=== PATIENT | male | born 1945 | race Caucasian/White ===

== ENCOUNTER 2018-04-16 12:49 | Emergency (ER) | payer MEDICARE, OTHER ==
[2018-04-16 13:09] VITALS: BP 136/63
[2018-04-16 13:24] LABS: CHLORIDE,CL 111 mmol/L (98-107); SODIUM,NA 145 mmol/L (136-145)
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
== END 2018-04-16 14:45 | disposition home or self-care (01) ==
LOC: LL.ED 12:49
DX: M10.9 Gout, unspecified (principal); Z79.899 Other long term (current) drug therapy; Z87.891 Personal history of nicotine dependence
CPT/HCPCS: 36415; 73630-RT; 80053; 84550; 85025; 85379; 86140; 99284

== ENCOUNTER 2018-07-29 15:58 | Emergency (ER) | payer MEDICARE, OTHER ==
[2018-07-29 16:09] VITALS: BP 123/58
[2018-07-29] MEDS ORDERED: Diphtheria,Pertussis(Acell),Tetanus Vaccine 0.5 ML SDV IM ONE (16:15)
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
[2018-07-29] MEDS ORDERED: Bacitracin/Neomycin/Polymyxin B Oint 0.9 GM U/D Packet TOP ONE (16:49)
== END 2018-07-29 17:45 | disposition home or self-care (01) ==
LOC: LL.ED 15:58
DX: S51.811A Laceration without foreign body of right forearm, initial encounter (principal); Z23 Encounter for immunization; W19.XXXA Unspecified fall, initial encounter; Y92.009 Unspecified place in unspecified non-institutional (private) residence as the place of occurrence of the external cause
CPT/HCPCS: 12002; 90471; 90715; 99283; J2001

== ENCOUNTER → 2019-02-13 | Outpatient (CLI) | payer MEDICARE, OTHER ==
[2019-02-13 16:19] LABS: CHLORIDE,CL 104 mmol/L (98-107); SODIUM,NA 139 mmol/L (136-145)
== END ==
LOC: LL.CLIN 15:07
PROVIDERS: ATTEND Nurse Practitioner
DX: R06.02 Shortness of breath (principal); J98.4 Other disorders of lung; J90 Pleural effusion, not elsewhere classified; J98.11 Atelectasis
CPT/HCPCS: 36415; 71046; 80048; 83605; 85025; 96372; 99213; J0696; J1040

== ENCOUNTER 2019-03-28 20:59 | Emergency (ER) | payer MEDICARE, OTHER ==
[2019-03-28 21:43] VITALS: BP 108/58; PULSE 86
[2019-03-28] MEDS ORDERED: Sodium Chloride 0.9% 10 ML Syringe FLUSH PRN (22:15)
[2019-03-28] MEDS ORDERED: Sodium Chloride 0.9% 1,000 ML IV SCH (22:15)
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
== END 2019-03-28 23:08 ==
LOC: LL.ED 20:59
DX: R55 Syncope and collapse (principal); J44.9 Chronic obstructive pulmonary disease, unspecified; K92.2 Gastrointestinal hemorrhage, unspecified; D64.89 Other specified anemias; Z87.891 Personal history of nicotine dependence; Z99.81 Dependence on supplemental oxygen
CPT/HCPCS: 36415; 71045; 80048; 85025; 96360; 99284; 99285-25; G0480; J7030

== ENCOUNTER 2019-07-24 13:51 | Emergency (ER) | payer MEDICARE, OTHER ==
--- NOTE | 2019-07-24 13:53 | EDM.PDOC ---
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 She will likely need a repeat EGD. Further blood transfusion, etc. depending on his clinical course and treatment of CHF as above. Qualifiers: Anemia type: other cause Other causes of anemia: other cause, not classified Qualified Code(s): D64.89 - Other specified anemias (3) Recurrent gastrointestinal hemorrhage SNOMED Code(s): 811306768 Code(s): K92.2 - GASTROINTESTINAL HEMORRHAGE, UNSPECIFIED Status: Acute Priority: High Annotation/Comment:: As above (4) D-dimer, elevated SNOMED Code(s): 942837131 Code(s): R79.89 - OTHER SPECIFIED ABNORMAL FINDINGS OF BLOOD CHEMISTRY Status: Acute Priority: High Onset Date: 07/24/19 Annotation/Comment:: CTA of the chest results as above. No anticoagulation therapy for now secondary to progressive anemia and history of recurrent upper GI bleeds as above. No clear evidence of DVT or PE. Consider venous Doppler studies of the lower extremities by accepting providers. (5) COPD (chronic obstructive pulmonary disease) SNOMED Code(s): 54175175 Code(s): J44.9 - CHRONIC OBSTRUCTIVE PULMONARY DISEASE, UNSPECIFIED Status : Chronic Priority: Medium Annotation/Comment:: Recent fever or bronchitic type symptoms. Note chronic O2 therapy required. Qualifiers: COPD type: emphysema Emphysema type: panlobular Qualified Code(s): J43.1 - Panlobular emphysema (6) Coronary artery disease SNOMED Code(s): 24314806 Code(s): I25.10 - ATHSCL HEART DISEASE OF [place] CORONARY ARTERY W/O ANG PCTRS Status: Chronic Priority: High Annotation/Comment:: No Chest pain or anginal type symptoms, however evidence of possible anterolateral cardiac ischemia by resting EKG. Further cardiac workup including possible rule out [place] orders, cardiology consultation, repeat echocardiogram, etc. depending on his clinical course. Last echocardiogram on 01/04/18 with results as above. Qualifiers: Coronary Disease-Associated Artery/Lesion type: [place] artery [place] vs. transplanted heart: [place] heart Associated angina: without angina Qualified Code(s): I25.10 - Atherosclerotic heart disease of [place] coronary artery without angina pectoris (7) First degree AV block SNOMED Code(s): 142398399 Code(s): I44.0 - ATRIOVENTRICULAR BLOCK, FIRST DEGREE Status: Acute Priority: Medium Onset Date: 07/24/19 Annotation/Comment:: Newly diagnosed. Observe for now. (8) Mixed anxiety depressive disorder SNOMED Code(s): 823312420 Code(s): F41.8 - OTHER SPECIFIED ANXIETY DISORDERS Status: Chronic Priority: Medium Annotation/Comment:: Stable by history (9) Osteoarthritis SNOMED Code(s): 041015336 Code(s): M19.90 - UNSPECIFIED OSTEOARTHRITIS, UNSPECIFIED SITE Status: Chronic Priority: Medium Annotation/Comment:: Stable by history with history of hyperuricemia but no recent gout attacks. Qualifiers: Osteoarthritis location: multiple joints Osteoarthritis type: primary Qualified Code(s): M89.49 - Other hypertrophic osteoarthropathy, multiple sites (10) Right bundle branch block (RBBB) SNOMED Code(s): 35825529 Code(s): I45.10 - UNSPECIFIED RIGHT BUNDLE-BRANCH BLOCK Status: Chronic Priority: Medium Annotation/Comment:: Nonsymptomatic - Problem List Review Problem List Initiated/Reviewed/Updated: Yes - My Orders Last 24 Hours: My Active Orders 07/24/19 14:12 Cardiac Monitoring [RC] . DIRECTED EKG Documentation Completion [RC] ASDIRECTED Oxygen Therapy, ED [RC] PRN Peripheral IV Care [RC] . DIRECTED Pulse Oximetry [RC] CONTINUOUS Up With Assistance [RC] PFP Vital Signs [RC] PFP Chest 1V Frontal [CR] Stat Sodium Chloride 0.9% [Saline Flush] 10 ml FLUSH ASDIRECTED PRN Obtain Past Medical Record [OM.PC] Urgent Peripheral IV Insertion Adult [OM.PC] Stat Resuscitation Status Stat 07/24/19 15:08 Chest PE [Ang Chest] [CT] Stat 07/24/19 Breakfast Nothing per Oral Now Diet [DIET] - Assessment/Plan Last 24 Hours: My Active Orders 07/24/19 14:12 Cardiac Monitoring [RC] . DIRECTED EKG Documentation Completion [RC] ASDIRECTED Oxygen Therapy, ED [RC] PRN Peripheral IV Care [RC] . DIRECTED Pulse Oximetry [RC] CONTINUOUS Up With Assistance [RC] PFP Vital Signs [RC] PFP Chest 1V Frontal [CR] Stat Sodium Chloride 0.9% [Saline Flush] 10 ml FLUSH ASDIRECTED PRN Obtain Past Medical Record [OM.PC] Urgent Peripheral IV Insertion Adult [OM.PC] Stat Resuscitation Status Stat 07/24/19 15:08 Chest PE [Ang Chest] [CT] Stat 07/24/19 Breakfast Nothing per Oral Now Diet [DIET] Assessment:: As above Plan: As above. Extensive precautions were given to the patient and his , who are in agreement with the treatment plan. Ambulance transfer to [place] with marketing production specialist accompaniment as above.
[2019-07-24] MEDS ORDERED: Famotidine 20 MG/2 ML SDV IVPUSH ONE (14:12)
[2019-07-24] MEDS: Sodium Chloride 0.9% 10 ML Syringe FLUSH PRN ×2 (14:53→17:28)
[2019-07-24 15:10] LABS: CHLORIDE,CL 107 mmol/L (98-107); SODIUM,NA 142 mmol/L (136-145)
[2019-07-24] MEDS ORDERED: Iopamidol 755 Mg/ML 100 ML Bottle IVPUSH STA (15:23)
[2019-07-24 15:29] LABS: PTT,PARTIAL THROMBOPLSTIN TIME 31.6 SEC (24.5-32.8)
[2019-07-24] MEDS ORDERED: Furosemide 40 MG/4 ML VIAL IVPUSH ONE (16:19)
[2019-07-24 18:54] VITALS: PULSE 80
[2019-07-24 18:55] VITALS: BP 148/73
== END 2019-07-24 18:10 ==
LOC: LL.ED 13:51
DX: I13.0 Hypertensive heart and chronic kidney disease with heart failure and stage 1 through stage 4 chronic kidney disease, or unspecified chronic kidney disease (principal); I50.9 Heart failure, unspecified; M10.9 Gout, unspecified; J44.9 Chronic obstructive pulmonary disease, unspecified; D64.9 Anemia, unspecified; I44.0 Atrioventricular block, first degree; M19.90 Unspecified osteoarthritis, unspecified site; F41.8 Other specified anxiety disorders; K92.2 Gastrointestinal hemorrhage, unspecified; I45.10 Unspecified right bundle-branch block; I25.10 Atherosclerotic heart disease of native coronary artery without angina pectoris; R79.1 Abnormal coagulation profile; E66.9 Obesity, unspecified; F41.9 Anxiety disorder, unspecified; F32.9 Major depressive disorder, single episode, unspecified; Z68.35 Body mass index [BMI] 35.0-35.9, adult; Z87.891 Personal history of nicotine dependence; Z79.899 Other long term (current) drug therapy; Z99.81 Dependence on supplemental oxygen; E11.42 Type 2 diabetes mellitus with diabetic polyneuropathy
CPT/HCPCS: 36415; 71045; 71275; 80053; 82550; 82553; 83605; 83735; 83880; 84443; 84484; 84550; 85025; 85379; 85610; 85730; 93005; 96374; 96375; 99285-25; J1940; J3490; Q9967

== ENCOUNTER 2020-09-03 15:49 | Observation (INO) | payer MEDICARE, OTHER ==
[2020-09-03] MEDS ORDERED: Sodium Chloride 0.9% 10 ML Syringe FLUSH PRN (16:05)
[2020-09-03] MEDS ORDERED: cefTRIAXone 1 GM Vial IVPUSH ONE (16:07)
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
[2020-09-03] MEDS: Sodium Chloride 0.9% 500 ML IV SCH ×2 (16:26→17:05)
[2020-09-03 16:35] LABS: PTT,PARTIAL THROMBOPLSTIN TIME 29.6 SEC (24.5-32.8)
[2020-09-03 16:44] LABS: CHLORIDE,CL 107 mmol/L (98-107); SODIUM,NA 144 mmol/L (136-145)
[2020-09-03] MEDS ORDERED: Ondansetron 4 MG Tab.DIS PO PRN (17:35)
[2020-09-03] MEDS ORDERED: Acetaminophen 325 MG Tab PO PRN (17:35)
[2020-09-03] MEDS ORDERED: Ondansetron 4 MG/2 ML SDV IVPUSH PRN (17:35)
[2020-09-03] MEDS ORDERED: Albuterol 6.7 GM Inhaler INH PRN (17:40)
[2020-09-03] MEDS ORDERED: Sodium Chloride 0.9% 1,000 ML IV SCH (17:45)
[2020-09-03] MEDS: Magnesium Oxide 400 MG Tab PO SCH (19:03)
[2020-09-03] MEDS: Potassium Chloride 10 MEQ Tab.ER PO SCH (19:03)
[2020-09-03] MEDS: Gabapentin 300 MG Cap PO SCH (19:03)
[2020-09-03] MEDS: Budesonide 0.5 MG/2 ML Neb Susp INH SCH (19:03)
[2020-09-03] MEDS: Albuterol/Ipratropium 3.0-0.5 MG/3 ML Neb Soln INH SCH (19:03)
[2020-09-03] MEDS ORDERED: ARIPiprazole 10 MG Tab PO SCH (20:00)
[2020-09-03] MEDS ORDERED: Beta-Carotene (Vitamin A) w/Vitamin C & E plus Minerals Tab PO SCH (20:00)
[2020-09-03] MEDS ORDERED: Tamsulosin 0.4 MG Cap.ER PO SCH (20:00)
[2020-09-04] MEDS: Gabapentin 300 MG Cap PO SCH (07:29)
[2020-09-04] MEDS: Budesonide 0.5 MG/2 ML Neb Susp INH SCH (07:29)
[2020-09-04] MEDS: Albuterol/Ipratropium 3.0-0.5 MG/3 ML Neb Soln INH SCH ×3 (07:43→17:06)
[2020-09-04] MEDS ORDERED: Ferrous Sulfate 325 MG Tab PO SCH (08:00)
[2020-09-04] MEDS ORDERED: Sertraline 50 MG Tab PO SCH (08:00)
[2020-09-04] MEDS ORDERED: Pantoprazole 40 MG Tab.CR PO SCH (08:00)
[2020-09-04 08:56] LABS: CHLORIDE,CL 110 mmol/L (98-107); SODIUM,NA 144 mmol/L (136-145)
[2020-09-04] MEDS ORDERED: IPRATROPIUM NASBOTH SCH (10:30)
[2020-09-04] MEDS: Potassium Chloride 10 MEQ Tab.ER PO SCH (11:15)
[2020-09-04] MEDS: Magnesium Oxide 400 MG Tab PO SCH (11:15)
[2020-09-04] MEDS ORDERED: Acetaminophen 325 MG Tab PO PRN (12:09)
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
[2020-09-04 17:06] VITALS: BP 160/73; PULSE 85
[2020-09-04] MEDS ORDERED: Multivitamin Tab PO SCH (18:00)
--- NOTE | 2020-09-04 20:06 | PCM.DCSUM1 ---
Discharge Summary - Hospital Course Free Text/Narrative:: Nj is a 75 y/o male who had presented to the ER via POV by his after he became more lethargic. He had been acting fine and then just seemed to get weaker as the day went on. He did arrive to the ER with low blood pressures and felt warm. He was given IV fluids and his bloods pressures improved. Sepsis was suspected and Sepsis protocol instituted. Labs were drawn and he was given Ceftriaxone 1gm IVP. His labs were reviewed. His lactic acid was normal. BPs improved with IV fluids. Noted that his BUN and seat covers trimmer were elevated. It was decided that he would be admitted to Observation for IV fluids and serial labs. Diagnosis: Stroke: No - Discharge Data Discharge Date: 09/04/20 Discharge Disposition: Home, Self-Care 01 Condition: Good - Referral to Home Health Primary Care Physician: Shaista Salcedo NP - Patient Summary/Data Consults: Consultations 09/03/20 17:35 OT Evaluation and Treatment [CONS] Routine PT Evaluation and Treatment [CONS] Routine Hospital Course: The patient received normal saline infusions through the night. His labs were repeated and improved. He was evaluated by PT and no deficits were noted. He felt better and was more alert and able to talk to staff. The patient felt ready to go home. He was not febrile and his blood pressures had remained stable after IV rehydration. The patient was sent home with his . - Patient Instructions Diet: Heart Healthy Diet Activity: As Tolerated Showering/Bathing: May Shower Other/Special Instructions: -Stay hydrated, especially in this hot weather. - Make sure you have your air conditioning on or a fan going. -Resume your home medications as prescribed by your PCP. -Follow up with your PCP for further concerns - Discharge Plan *PRESCRIPTION DRUG MONITORING PROGRAM REVIEWED*: Not Applicable *COPY OF PRESCRIPTION DRUG MONITORING REPORT IN PATIENT JOHN: Not Applicable Home Medications: Home Meds Albuterol [Ventolin HFA] 1 puff INH Q4H PRN 02/26/15 [History] Furosemide 20 mg PO Q2D 02/26/15 [History] Lutein/Minerals/Vit A,C & E [I-Nurys] 1 each PO BEDTIME 02/26/15 [History] Multivitamin [Multi-Vitamin Daily] 1 tab PO QPM 02/26/15 [History] Pantoprazole [ProTONIX] 40 mg PO DAILY 02/26/15 [History] Potassium Chloride [Klor-Con 10] 10 meq PO BIDMEALS@1200,1800 02/26/15 [History] Sertraline [Zoloft] 200 mg PO DAILY 02/26/15 [History] ARIPiprazole [Abilify] 5 mg PO BEDTIME 04/16/18 [History] Tamsulosin [Tamsulosin 24 Hr] 0.4 mg PO BEDTIME 04/16/18 [History] Albuterol/Ipratropium [DuoNeb 3.0-0.5 MG/3 ML] 3 ml INH QID 07/29/18 [History] Magnesium Oxide 400 mg PO BID@1200,1800 07/29/18 [History] Acetylcysteine [Nac] 1 cap PO BID 03/28/19 [History] Ferrous Sulfate 1 tab PO Q2D 03/28/19 [History] Gabapentin [Neurontin] 300 mg PO BID 03/28/19 [History] Acetaminophen [Tylenol] 650 mg PO Q6H PRN 07/24/19 [History] Ipratropium [Atrovent 0.03% Nasal [place]] 2 spray NASBOTH BID 07/24/19 [History] Ascorbate Calcium [Vitamin C] 500 mg PO DAILY 09/03/20 [History] Budesonide [Pulmicort] 1 vial INH BID 09/03/20 [History] Oxygen Therapy Mode: Nasal Cannula Oxygen Flow Rate (L/min): 4 Patient Handouts: Hypotension, [id number] Forms: ED Department Discharge Referrals: Shaista Salcedo NP [Primary Care Provider] - - Discharge Summary/Plan Comment DC Time >30 min.: Yes - General Info Date of Service: 09/04/20 Admission Dx/Problem (Free Text: 1)Renal Insufficiency 2)Lethargic 3)Hypotension due to Hypovolemia 4)R/O Sepsis - Review of Systems General: Reports: No Symptoms HEENT: Reports: No Symptoms Pulmonary: Reports: No Symptoms Cardiovascular: Reports: No Symptoms Gastrointestinal: Reports: No Symptoms Genitourinary: Reports: No Symptoms Musculoskeletal: Reports: No Symptoms Skin: Reports: No Symptoms Neurological: Reports: No Symptoms Psychiatric: Reports: No Symptoms - Patient Data Vitals - Most Recent: Last Vital Signs Temp 37.0 C 09/04/20 12:00 Pulse 85 09/04/20 16:00 Resp 16 09/04/20 12:00 BP 160/73 H 09/04/20 16:00 Pulse Ox 95 09/04/20 12:00 Weight - Most Recent: 130.181 kg I&O - Last 24 hours: Intake & Output 09/04/20 09/04/20 09/04/20 06:59 14:59 22:59 Intake Total 800 Output Total 30 Balance 50@ Lab Results - Last 24 hrs: Laboratory Results - last 24 hr 09/03/20 09/03/20 09/04/20 Range/Units 19:41 19:41 07:12 WBC 5.3 (4.0-10.2) K/uL RBC 3.22 L (4.33-5.41) M/uL Hgb 9.3 L D (13.1-16.8) g/dL Hct 28.9 L (39.0-49.0) % MCV 89.8 (84.0-98.0) fL MCH 28.9 (28.2-33.3) pg MCHC 32.2 (31.7-36.0) g/dL RDW 16.0 H (11.2-14.1) % Plt Count 74 L (150-350) K/uL Neut % (Auto) 80.7 H (45.0-80.0) % Lymph % (Auto) 8.7 L (10.0-50.0) % [place] % (Auto) 8.7 (2.0-14.0) % Eos % (Auto) 1.7 (0.0-5.0) % Baso % (Auto) 0.2 (0.0-2.0) % Neut # (Auto) 4.28 (1.40-7.00) K/uL Lymph # (Auto) 0.46 L (0.50-3.50) K/uL [place] # (Auto) 0.46 (0.00-1.00) K/uL Eos # (Auto) 0.09 (0.00-0.50) K/uL Baso # (Auto) 0.01 (0.00-0.20) K/uL Sodium (136-145) mmol/L Potassium (3.5-5.1) mmol/L Chloride (98-107) mmol/L Carbon Dioxide (21.0-32.0) mmol/L BUN (7-18) mg/dL Creatinine (0.51-1.17) mg/dL Est Cr Clr Drug Dosing mL/min Estimated GFR (MDRD) mL/min Glucose (70-99) mg/dL Lactic Acid 0.9 (0.4-2.0) mmol/L Calcium (8.5-10.1) mg/dL Troponin I 0.000 (0.000-0.056) ng/mL C-Reactive Protein (<=0.9) mg/dL 09/04/20 09/04/20 09/04/20 Range/Units 07:12 07:12 07:12 WBC (4.0-10.2) K/uL RBC (4.33-5.41) M/uL Hgb (13.1-16.8) g/dL Hct (39.0-49.0) % MCV (84.0-98.0) fL MCH (28.2-33.3) pg MCHC (31.7-36.0) g/dL RDW (11.2-14.1) % Plt Count (150-350) K/uL Neut % (Auto) (45.0-80.0) % Lymph % (Auto) (10.0-50.0) % [place] % (Auto) (2.0-14.0) % Eos % (Auto) (0.0-5.0) % Baso % (Auto) (0.0-2.0) % Neut # (Auto) (1.40-7.00) K/uL Lymph # (Auto) (0.50-3.50) K/uL [place] # (Auto) (0.00-1.00) K/uL Eos # (Auto) (0.00-0.50) K/uL Baso # (Auto) (0.00-0.20) K/uL Sodium 144 (136-145) mmol/L Potassium 4.2 (3.5-5.1) mmol/L Chloride 110 H (98-107) mmol/L Carbon Dioxide 27.7 (21.0-32.0) mmol/L BUN 35 H (7-18) mg/dL Creatinine 1.17 (0.51-1.17) mg/dL Est Cr Clr Drug Dosing 54.59 mL/min Estimated GFR (MDRD) > 60 mL/min Glucose 103 H (70-99) mg/dL Lactic Acid 0.8 (0.4-2.0) mmol/L Calcium 8.1 L (8.5-10.1) mg/dL Troponin I 0.000 (0.000-0.056) ng/mL C-Reactive Protein 11.1 H (<=0.9) mg/dL ANKITA Results - Last 24 hrs: Microbiology 09/03/20 16:12 Aerobic Blood Culture - Preliminary Blood - Venous - Lab Draw NO GROWTH AFTER 1 DAY Anaerobic Blood Culture - Preliminary NO GROWTH AFTER 1 DAY 09/03/20 16:12 Aerobic Blood Culture - Preliminary Blood - Venous NO GROWTH AFTER 1 DAY Anaerobic Blood Culture - Preliminary NO GROWTH AFTER 1 DAY Med Orders - Current: Current Medications Discontinued Medications Acetaminophen (Acetaminophen 325 Mg Tab) 650 mg PO Q4H PRN PRN Reason: Pain (Mild 1-3)/fever Albuterol (Albuterol 6.7 Gm Inhaler) 0 gm INH Q4H PRN PRN Reason: Shortness of Breath Albuterol/Ipratropium (Albuterol/Ipratropium 3.0-0.5 Mg/3 Ml Neb Soln) 3 ml INH QIDRT [facility] Last Admin: 09/04/20 17:06 Dose: Not Given Documented by: Aripiprazole (Aripiprazole 10 Mg Tab) 5 mg PO BEDTIME [facility] Last Admin: 09/03/20 19:02 Dose: 5 mg Documented by: Ascorbic Acid (Ascorbic Acid 500 Mg Tab) 500 mg PO DAILY [facility] Budesonide (Budesonide 0.5 Mg/2 Ml Neb Susp) 0.5 mg INH BIDRT [facility] Last Admin: 09/04/20 07:29 Dose: 0.5 mg Documented by: Ceftriaxone Sodium (Ceftriaxone 1 Gm Vial) 1 gm IVPUSH STAT ONE Stop: 09/03/20 16:08 Last Admin: 09/03/20 16:31 Dose: 1 gm Documented by: Ferrous Sulfate (Ferrous Sulfate 325 Mg Tab) 325 mg PO Q2D [facility] Last Admin: 09/04/20 07:43 Dose: 325 mg Documented by: Furosemide (Furosemide 20 Mg Tab) 20 mg PO Q2D [facility] Gabapentin (Gabapentin 300 Mg Cap) 300 mg PO BID [facility] Last Admin: 09/04/20 07:29 Dose: 300 mg Documented by: Sodium Chloride (Normal Saline) 500 mls @ 999 mls/hr IV .BOLUS [facility] Last Admin: 09/03/20 17:05 Dose: 999 mls/hr Documented by: Sodium Chloride (Normal Saline) 1,000 mls @ 100 mls/hr IV ASDIRECTED [facility] Last Admin: 09/03/20 19:04 Dose: 100 mls/hr Documented by: Magnesium Oxide (Magnesium Oxide 400 Mg Tab) 400 mg PO BID@1200,1800 [facility] Last Admin: 09/04/20 11:15 Dose: 400 mg Documented by: Multivitamins/Minerals (Beta-Carotene (Vitamin A) W/Vitamin C & E Plus Minerals Tab) 1 tab PO BEDTIME [facility] Last Admin: 09/03/20 19:03 Dose: 1 tab Documented by: Multivitamins/Minerals/Vitamin C (Multivitamin Tab) 1 tab PO QPM [facility] Ipratropium [ Atrovent 0.03% Nasal [place]] 2 spray NASBOTH BID [facility] Last Admin: 09/04/20 10:37 Dose: 2 spray Documented by: Non-Formulary Medication (Acetylcysteine [Nac]) 1 cap PO BID [facility] Ondansetron HCl (Ondansetron 4 Mg Tab.Dis) 4 mg PO Q6H PRN PRN Reason: Nausea/Vomiting Ondansetron HCl (Ondansetron 4 Mg/2 Ml Sdv) 4 mg IVPUSH Q6H PRN PRN Reason: Nausea/Vomiting Pantoprazole Sodium (Pantoprazole 40 Mg Tab.Cr) 40 mg PO DAILY [facility] Last Admin: 09/04/20 07:30 Dose: 40 mg Documented by: Potassium Chloride (Potassium Chloride 10 Meq Tab.Er) 10 meq PO BIDMEALS@1200,1800 [facility] Last Admin: 09/04/20 11:15 Dose: 10 meq Documented by: Sertraline HCl (Sertraline 50 Mg Tab) 200 mg PO DAILY [facility] Last Admin: 09/04/20 07:30 Dose: 200 mg Documented by: Sodium Chloride (Sodium Chloride 0.9% 10 Ml Syringe) 10 ml FLUSH ASDIRECTED PRN PRN Reason: Keep Vein Open Tamsulosin HCl (Tamsulosin 0.4 Mg Cap.Er) 0.4 mg PO BEDTIME [facility] Last Admin: 09/03/20 19:03 Dose: 0.4 mg Documented by: - Exam General: Reports: Alert, Oriented HEENT: Reports: Pupils Equal, Pupils Reactive Neck: Reports: Supple Lungs: Reports: Normal Respiratory Effort, Decreased Breath Sounds Cardiovascular: Reports: Regular Rate, Regular Rhythm GI/Abdominal Exam: Normal Bowel Sounds, Soft (Male) Exam: Deferred Rectal (Males) Exam: Deferred Back Exam: Reports: Normal Inspection Extremities: Normal Inspection, Normal Range of Motion, No Pedal Edema, Normal Capillary Refill Skin: Reports: Warm, Dry, Intact Neurological: Reports: No New Focal Deficit Psy/Mental Status: Reports: Alert, Normal Affect, Normal Mood
[2020-09-05] MEDS ORDERED: Ascorbic Acid 500 MG Tab PO SCH (08:00)
[2020-09-05] MEDS ORDERED: Furosemide 20 MG Tab PO SCH (08:00)
== END 2020-09-04 17:32 | disposition home or self-care (01) ==
LOC: LL.ED 15:49 → LL.MS 17:16
PROVIDERS: ADMIT Nurse Practitioner Family; ATTEND Nurse Practitioner Family
DX: R53.83 Other fatigue (principal); E11.22 Type 2 diabetes mellitus with diabetic chronic kidney disease; N18.9 Chronic kidney disease, unspecified; I95.9 Hypotension, unspecified; Z87.891 Personal history of nicotine dependence; E11.40 Type 2 diabetes mellitus with diabetic neuropathy, unspecified; J44.9 Chronic obstructive pulmonary disease, unspecified; Z99.81 Dependence on supplemental oxygen; Z79.899 Other long term (current) drug therapy
CPT/HCPCS: 36415; 51702; 71045; 80048; 80053; 81003; 83605; 83735; 83880; 84484; 85025; 85610; 85730; 86140; 87040; 87186; 93005; 94640; 96374; 97161-GP; 97530-GP; 99285-25; A9270-GY; G0378; J0696; J7030; J7040; J7620-GY

== ENCOUNTER 2020-09-05 19:00 | Inpatient (IN) | payer MEDICARE, OTHER ==
[2020-09-05] MEDS ORDERED: Albuterol/Ipratropium 3.0-0.5 MG/3 ML Neb Soln NEB PRN (19:40)
[2020-09-05] MEDS ORDERED: Acetaminophen 325 MG Tab PO PRN (19:40)
[2020-09-05] MEDS ORDERED: Temazepam 15 MG Cap PO PRN (19:40)
[2020-09-05] MEDS ORDERED: Albuterol 0.083% 2.5 MG/3 ML Neb Soln NEB PRN (19:40)
[2020-09-05 20:34] LABS: CHLORIDE,CL 109 mmol/L (98-107); SODIUM,NA 143 mmol/L (136-145)
--- NOTE | 2020-09-05 21:15 | PCM.HP.2 ---
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 Routine Lab 09/06/20 05:11 Ordered ARIPiprazole [Abilify] Med 09/06/20 20:00 Ordered 5 mg PO BEDTIME Acetaminophen [TylenoL] Med 09/05/20 19:40 Active 650 mg PO Q4H PRN Acetylcysteine [Nac] Med 09/06/20 08:00 Ordered 1 cap PO BID Albuterol [Proventil Neb Soln] Med 09/05/20 19:40 Active 2.5 mg NEB Q2H PRN Albuterol/Ipratropium [DuoNeb 3.0-0.5 MG/3 ML] Med 09/05/20 19:40 Active 3 ml NEB Q4HRRT PRN Albuterol/Ipratropium [DuoNeb 3.0-0.5 MG/3 ML] Med 09/06/20 02:00 Ordered 3 ml NEB Q6HRRT Ascorbate Calcium [Vitamin C] Med 09/06/20 08:00 Ordered 500 mg PO DAILY Budesonide [Pulmicort] Med 09/05/20 20:00 Active 0.5 mg NEB BIDRT Dextromethorphan/guaiFENesin [Mucinex DM ER 600-30 MG] Med 09/06/20 08:00 Active 1 tab PO BID Ferrous Sulfate Med 09/05/20 21:15 Ordered 325 mg PO Q2D Furosemide [Lasix] Med 09/05/20 21:15 Ordered 40 mg IVPUSH Q8H Gabapentin [Neurontin] Med 09/06/20 08:00 Ordered 300 mg PO BID Ipratropium [Atrovent 0.03% Nasal Leonidas] Med 09/06/20 08:00 Ordered 2 spray NASBOTH BID Magnesium Oxide Med 09/06/20 12:00 Ordered 400 mg PO BID@1200,1800 Pantoprazole [ProTONIX] Med 09/06/20 08:00 Ordered 40 mg PO DAILY Potassium Chloride [Klor-Con M20] Med 09/06/20 08:00 Ordered 20 meq PO TID Sertraline [Zoloft] Med 09/06/20 08:00 Ordered 200 mg PO DAILY Sodium Chloride 0.9% [Saline Flush] Med 09/05/20 19:50 Active 10 ml FLUSH ASDIRECTED PRN Sodium Chloride 0.9% [Saline Flush] Med 09/05/20 19:45 Active 10 ml FLUSH Q12H Tamsulosin [Flomax] Med 09/06/20 20:00 Ordered 0.4 mg PO BEDTIME Temazepam [Restoril] Med 09/05/20 19:40 Active 15 mg PO BEDTIME PRN Vancomycin 1 gm Med 09/05/20 21:00 Active Dextrose 5% in Water 250 ml IV Q24H [id number] [Rocephin] 1 gm Med 09/05/20 20:00 Active Sodium Chloride 0.9% [Normal Saline] 100 ml IV Q12H DVT/VTE Prophylaxis Reflex [OM.PC] Routine Oth 09/05/20 19:41 Ordered GM Immunization Reflex [OM.PC] Click to Edit Oth 09/05/20 19:41 Ordered Saline Lock Insert [OM.PC] Stat Oth 09/05/20 19:50 Ordered Severe Sepsis Onset Time [OM.PC] Stat Oth 09/05/20 19:50 Ordered EKG 12 Lead [EK] Routine Ther 09/06/20 05:11 Ordered Medication Orders Acetaminophen (Acetaminophen 325 Mg Tab) 650 mg PO Q4H PRN PRN Reason: Pain/Fever Albuterol (Albuterol 0.083% 2.5 Mg/3 Ml Neb Soln) 2.5 mg NEB Q2H PRN PRN Reason: Dyspnea Albuterol/Ipratropium (Albuterol/Ipratropium 3.0-0.5 Mg/3 Ml Neb Soln) 3 ml NEB Q4HRRT PRN PRN Reason: Dyspnea Albuterol/Ipratropium (Albuterol/Ipratropium 3.0-0.5 Mg/3 Ml Neb Soln) 3 ml NEB Q6HRRT DARREL Budesonide (Budesonide 0.5 Mg/2 Ml Neb Susp) 0.5 mg NEB BIDRT DARREL Ferrous Sulfate (Ferrous Sulfate 325 Mg Tab) 325 mg PO Q2D DARREL Furosemide (Furosemide 40 Mg/4 Ml Vial) 40 mg IVPUSH Q8H DARREL Gabapentin (Gabapentin 300 Mg Cap) 300 mg PO BID DARREL Guaifenesin/Dextromethorphan (Dextromethorphan/Guaifenesin 600-30 Mg Tab.Er) 1 tab PO BID DARREL Ceftriaxone Sodium 1 gm/ (Sodium Chloride) 100 mls @ 200 mls/hr IV Q12H DARREL Vancomycin HCl 1 gm/ Dextrose/ (Water) 250 mls @ 165 mls/hr IV Q24H DARREL Magnesium Oxide (Magnesium Oxide 400 Mg Tab) 400 mg PO BID@1200,1800 DARREL Non-Formulary Medication (Acetylcysteine [Nac]) 1 cap PO BID DARREL Non-Formulary Medication (Aripiprazole [Abilify]) 5 mg PO BEDTIME DARREL Non-Formulary Medication (Ascorbate Calcium [Vitamin C]) 500 mg PO DAILY DARREL Non-Formulary Medication (Ipratropium [Atrovent 0.03% Nasal Leonidas]) 2 spray NASBOTH BID DARREL Non-Formulary Medication (Sertraline [Zoloft]) 200 mg PO DAILY DARREL Pantoprazole Sodium (Pantoprazole 40 Mg Tab.Cr) 40 mg PO DAILY DARREL Potassium Chloride (Potassium Chloride 20 Meq Tab.Er) 20 meq PO TID DARREL Sodium Chloride (Sodium Chloride 0.9% 10 Ml Syringe) 10 ml FLUSH Q12H DARREL Sodium Chloride (Sodium Chloride 0.9% 10 Ml Syringe) 10 ml FLUSH ASDIRECTED PRN PRN Reason: Keep Vein Open Tamsulosin HCl (Tamsulosin 0.4 Mg Cap.Er) 0.4 mg PO BEDTIME DARREL Temazepam (Temazepam 15 Mg Cap) 15 mg PO BEDTIME PRN PRN Reason: Insomnia Assessment/Plan Comment:: As above. Extensive precautions were given to the patient and his , who are in agreement with the treatment plan. The patient will require about 3-4 days of inpatient/acute care secondary to multiple health problems as above. - Mortality Measure Prognosis:: Poor
[2020-09-05] MEDS: cefTRIAXone 1 GM in Sodium Chloride 0.9% 100 ML IV SCH (21:32)
[2020-09-05] MEDS: Sodium Chloride 0.9% 10 ML Syringe FLUSH SCH (21:33)
[2020-09-05] MEDS: Budesonide 0.5 MG/2 ML Neb Susp NEB SCH (21:38)
[2020-09-05] MEDS: Furosemide 40 MG/4 ML VIAL IVPUSH SCH (22:33)
[2020-09-06] MEDS: Albuterol/Ipratropium 3.0-0.5 MG/3 ML Neb Soln NEB SCH ×4 (01:39→19:39)
[2020-09-06] MEDS: Furosemide 40 MG/4 ML VIAL IVPUSH SCH ×3 (05:17→21:23)
[2020-09-06] MEDS: Sodium Chloride 0.9% 10 ML Syringe FLUSH PRN ×2 (05:19→12:24)
[2020-09-06] MEDS: cefTRIAXone 1 GM in Sodium Chloride 0.9% 100 ML IV SCH ×2 (07:52→19:40)
[2020-09-06] MEDS: Sodium Chloride 0.9% 10 ML Syringe FLUSH SCH ×3 (07:53→21:23)
[2020-09-06] MEDS: Budesonide 0.5 MG/2 ML Neb Susp NEB SCH ×2 (07:53→19:39)
[2020-09-06] MEDS: Ascorbic Acid 500 MG Tab PO SCH (07:53)
[2020-09-06] MEDS: Potassium Chloride 20 MEQ Tab.ER PO SCH ×3 (07:54→17:36)
[2020-09-06] MEDS: Dextromethorphan/guaiFENesin 600-30 MG Tab.ER PO SCH ×2 (07:54→17:35)
[2020-09-06] MEDS: Pantoprazole 40 MG Tab.CR PO SCH (07:54)
[2020-09-06] MEDS: Sertraline 50 MG Tab PO SCH (07:54)
[2020-09-06] MEDS: Gabapentin 300 MG Cap PO SCH ×2 (07:54→17:36)
[2020-09-06] MEDS: [UNRECOGNIZED DRUG - OTHER] NASBOTH SCH ×2 (07:55→17:35)
[2020-09-06] MEDS: IPRATROPIUM NASBOTH SCH ×2 (07:55→17:35)
[2020-09-06] MEDS ORDERED: Budesonide 0.5 MG/2 ML Neb Susp NEB SCH (08:00)
[2020-09-06] MEDS: Ferrous Sulfate 325 MG Tab PO SCH (08:08)
[2020-09-06 09:25] LABS: CHLORIDE,CL 107 mmol/L (98-107); SODIUM,NA 144 mmol/L (136-145)
--- NOTE | 2020-09-06 11:35 | PCM.PN ---
- General Info Date of Service: 09/06/20 Admission Dx/Problem (Free Text): Admission Diagnosis/Problem Admission Diagnosis/Problem Sepsis Functional Status: Reports: Pain Controlled, Tolerating Diet, Ambulating (With assist and cane use), Urinating, Incentive Spirometry. Denies: New Symptoms Pain Score: 0 - Review of Systems General: Reports: Weakness (Stable chronic). Denies: Fever, Fatigue, Malaise, Chills, Night Sweats, Appetite (Good) HEENT: Reports: Glasses. Denies: Dysphasia, Ear Pain, Eye Pain, Headaches, Post Nasal Drip, Sinus Congestion, Sore Throat, Visual Changes Pulmonary: Reports: Shortness of Breath, Cough. Denies: Pleuritic Chest Pain, Sputum, Hemoptysis, Wheezing Cardiovascular: Reports: Dyspnea on Exertion, Orthopnea, Edema (Improved). Denies: Chest Pain, Palpitations, Lightheadedness Gastrointestinal: Reports: No Symptoms, Other (Normal bowel movement this morning). Denies: Abdominal Pain, Constipation, Decreased Appetite, Difficulty Swallowing, Hematochezia, Melena, Nausea, Vomiting Genitourinary: Reports: Incontinence, Other (Ruiz catheter placed yesterday). Denies: Dysuria, Frequency, Burning, Hematuria, Retention, Flank Pain Musculoskeletal: Reports: No Symptoms. Denies: Neck Pain, Shoulder Pain, Arm Pain, Back Pain, Leg Pain Skin: Denies: Diaphoresis, Bruising (Stable) Neurological: Reports: Difficulty Walking (Stable), Weakness (Stable). Denies: Confusion, Dizziness, Headache Psychiatric: Reports: No Symptoms. Denies: Confusion, Depression, Anxiety, Agitation, Cravings, Hallucinations - Patient Data Vitals - Most Recent: Last Vital Signs Temp 36.7 C 09/06/20 08:00 Pulse 80 09/06/20 08:00 Resp 26 H 09/06/20 08:00 BP 156/88 H 09/06/20 08:00 Pulse Ox 96 09/06/20 08:00 Vital Signs - 24 hr 09/05/20 09/05/20 09/06/20 19:41 23:41 03:59 Temperature [ 36.6 C 36.5 C 36.8 C Oral] Pulse, 88 72 84 Peripheral [ Left Pulse Oximetry] Respiratory 16 24 H 20 Rate Blood Pressure 123/67 124/68 144/80 H [Right Lower Arm] O2 Sat by Pulse 93 L 95 92 L Oximetry 09/06/20 08:00 Temperature [ 36.7 C Oral] Pulse, 80 Peripheral [ Left Pulse Oximetry] Respiratory 26 H Rate Blood Pressure 156/88 H [Right Lower Arm] O2 Sat by Pulse 96 Oximetry Weight - Most Recent: 128.911 kg I&O - Last 24 Hours: Intake & Output 09/05/20 09/06/20 09/06/20 22:59 06:59 14:59 Intake Total 460 Output Total 95 1100 Balance -94* -640 Imaging Impressions - Last 24 Hours: monitoring coordinator shows irregular sinus rhythm in the 70s with occasional PACs but no other significant arrhythmia Lab Results Last 24 Hours: Laboratory Results - last 24 hr 09/05/20 09/05/20 09/05/20 Range/Units 19:50 19:50 19:50 WBC 4.5 (4.0-10.2) K/uL RBC 3.33 L (4.33-5.41) M/uL Hgb 9.6 L (13.1-16.8) g/dL Hct 29.6 L (39.0-49.0) % MCV 88.9 (84.0-98.0) fL MCH 28.8 (28.2-33.3) pg MCHC 32.4 (31.7-36.0) g/dL RDW 15.6 H (11.2-14.1) % Plt Count 83 L (150-350) K/uL Neut % (Auto) 82.6 H (45.0-80.0) % Lymph % (Auto) 8.2 L (10.0-50.0) % [place] % (Auto) 6.8 (2.0-14.0) % Eos % (Auto) 2.2 (0.0-5.0) % Baso % (Auto) 0.2 (0.0-2.0) % Neut # (Auto) 3.74 (1.40-7.00) K/uL Lymph # (Auto) 0.37 L (0.50-3.50) K/uL [place] # (Auto) 0.31 (0.00-1.00) K/uL Eos # (Auto) 0.10 (0.00-0.50) K/uL Baso # (Auto) 0.01 (0.00-0.20) K/uL INR Sodium 143 (136-145) mmol/L Potassium 3.9 (3.5-5.1) mmol/L Chloride 109 H (98-107) mmol/L Carbon Dioxide 26.9 (21.0-32.0) mmol/L BUN 25 H (7-18) mg/dL Creatinine 1.03 (0.51-1.17) mg/dL Est Cr Clr Drug Dosing TNP Estimated GFR (MDRD) > 60 mL/min Glucose 97 (70-99) mg/dL Lactic Acid 0.8 (0.4-2.0) mmol/L Calcium 8.4 L (8.5-10.1) mg/dL Iron (50-175) ug/dL TIBC (250-450) ug/dL % Saturation Ferritin (8-388) ng/mL Total Bilirubin (0.2-1.0) mg/dL AST (15-37) U/L ALT (12-78) U/L Alkaline Phosphatase (46-116) IU/L Troponin I (0.000-0.056) ng/mL NT-Pro-B Natriuret Pep (0-125) pg/mL Total Protein (6.4-8.2) g/dL Albumin (3.4-5.0) g/dL Vitamin B12 (193-986) pg/mL Specimen Type Urine Color Urine Appearance Urine pH (5.0-9.0) Ur Specific [place] (1.005-1.030) Urine Protein (NEGATIVE) mg/dL Urine Glucose (UA) (NEGATIVE) mg/dL Urine Ketones (NEGATIVE) mg/dL Urine Occult Blood (NEGATIVE) Urine Nitrite (NEGATIVE) Urine Bilirubin (NEGATIVE) Urine Urobilinogen (0.2-1.0) E.U./dL Ur Leukocyte Esterase (NEGATIVE) Urine RBC /HPF Urine WBC /HPF Ur Epithelial Cells /LPF Urine Bacteria (NONE TO FEW) /HPF Ethyl Alcohol 0.000 (0.000-0.080) g/dL SARS-CoV-2 RNA (CARMINE) (NEGATIVE) 09/05/20 09/05/20 09/05/20 Range/Units 19:50 21:10 23:55 WBC (4.0-10.2) K/uL RBC (4.33-5.41) M/uL Hgb (13.1-16.8) g/dL Hct (39.0-49.0) % MCV (84.0-98.0) fL MCH (28.2-33.3) pg MCHC (31.7-36.0) g/dL RDW (11.2-14.1) % Plt Count (150-350) K/uL Neut % (Auto) (45.0-80.0) % Lymph % (Auto) (10.0-50.0) % [place] % (Auto) (2.0-14.0) % Eos % (Auto) (0.0-5.0) % Baso % (Auto) (0.0-2.0) % Neut # (Auto) (1.40-7.00) K/uL Lymph # (Auto) (0.50-3.50) K/uL [place] # (Auto) (0.00-1.00) K/uL Eos # (Auto) (0.00-0.50) K/uL Baso # (Auto) (0.00-0.20) K/uL INR Sodium (136-145) mmol/L Potassium (3.5-5.1) mmol/L Chloride (98-107) mmol/L Carbon Dioxide (21.0-32.0) mmol/L BUN (7-18) mg/dL Creatinine (0.51-1.17) mg/dL Est Cr Clr Drug Dosing Estimated GFR (MDRD) mL/min Glucose (70-99) mg/dL Lactic Acid (0.4-2.0) mmol/L Calcium (8.5-10.1) mg/dL Iron (50-175) ug/dL TIBC (250-450) ug/dL % Saturation Ferritin (8-388) ng/mL Total Bilirubin (0.2-1.0) mg/dL AST (15-37) U/L ALT (12-78) U/L Alkaline Phosphatase (46-116) IU/L Troponin I 0.000 (0.000-0.056) ng/mL NT-Pro-B Natriuret Pep 991 H (0-125) pg/mL Total Protein (6.4-8.2) g/dL Albumin (3.4-5.0) g/dL Vitamin B12 (193-986) pg/mL Specimen Type [place] Urine Color Yellow Urine Appearance Clear Urine pH 5.0 (5.0-9.0) Ur Specific [place] 1.015 (1.005-1.030) Urine Protein Negative (NEGATIVE) mg/dL Urine Glucose (UA) Negative (NEGATIVE) mg/dL Urine Ketones Negative (NEGATIVE) mg/dL Urine Occult Blood Small H (NEGATIVE) Urine Nitrite Negative (NEGATIVE) Urine Bilirubin Negative (NEGATIVE) Urine Urobilinogen 0.2 (0.2-1.0) E.U./dL Ur Leukocyte Esterase Negative (NEGATIVE) Urine RBC 0-5 /HPF Urine WBC Not seen /HPF Ur Epithelial Cells Not seen /LPF Urine Bacteria Not seen (NONE TO FEW) /HPF Ethyl Alcohol (0.000-0.080) g/dL SARS-CoV-2 RNA (CARMINE) Negative (NEGATIVE) 09/06/20 09/06/20 09/06/20 Range/Units 07:35 07:35 07:35 WBC 5.3 (4.0-10.2) K/uL RBC 3.57 L (4.33-5.41) M/uL Hgb 10.3 L (13.1-16.8) g/dL Hct 31.4 L (39.0-49.0) % MCV 88.0 (84.0-98.0) fL MCH 28.9 (28.2-33.3) pg MCHC 32.8 (31.7-36.0) g/dL RDW 15.5 H (11.2-14.1) % Plt Count 100 L (150-350) K/uL Neut % (Auto) 77.1 (45.0-80.0) % Lymph % (Auto) 10.9 (10.0-50.0) % [place] % (Auto) 7.7 (2.0-14.0) % Eos % (Auto) 3.9 (0.0-5.0) % Baso % (Auto) 0.4 (0.0-2.0) % Neut # (Auto) 4.10 (1.40-7.00) K/uL Lymph # (Auto) 0.58 (0.50-3.50) K/uL [place] # (Auto) 0.41 (0.00-1.00) K/uL Eos # (Auto) 0.21 (0.00-0.50) K/uL Baso # (Auto) 0.02 (0.00-0.20) K/uL INR Sodium 144 (136-145) mmol/L Potassium 3.6 (3.5-5.1) mmol/L Chloride 107 (98-107) mmol/L Carbon Dioxide 28.1 (21.0-32.0) mmol/L BUN 26 H (7-18) mg/dL Creatinine 1.10 (0.51-1.17) mg/dL Est Cr Clr Drug Dosing TNP Estimated GFR (MDRD) > 60 mL/min Glucose 113 H (70-99) mg/dL Lactic Acid 0.8 (0.4-2.0) mmol/L Calcium 8.9 (8.5-10.1) mg/dL Iron (50-175) ug/dL TIBC (250-450) ug/dL % Saturation Ferritin (8-388) ng/mL Total Bilirubin 0.7 (0.2-1.0) mg/dL AST 20 (15-37) U/L ALT 28 (12-78) U/L Alkaline Phosphatase 155 H (46-116) IU/L Troponin I 0.000 (0.000-0.056) ng/mL NT-Pro-B Natriuret Pep 893 H (0-125) pg/mL Total Protein 7.7 (6.4-8.2) g/dL Albumin 3.3 L (3.4-5.0) g/dL Vitamin B12 733 (193-986) pg/mL Specimen Type Urine Color Urine Appearance Urine pH (5.0-9.0) Ur Specific [place] (1.005-1.030) Urine Protein (NEGATIVE) mg/dL Urine Glucose (UA) (NEGATIVE) mg/dL Urine Ketones (NEGATIVE) mg/dL Urine Occult Blood (NEGATIVE) Urine Nitrite (NEGATIVE) Urine Bilirubin (NEGATIVE) Urine Urobilinogen (0.2-1.0) E.U./dL Ur Leukocyte Esterase (NEGATIVE) Urine RBC /HPF Urine WBC /HPF Ur Epithelial Cells /LPF Urine Bacteria (NONE TO FEW) /HPF Ethyl Alcohol (0.000-0.080) g/dL SARS-CoV-2 RNA (CARMINE) (NEGATIVE) 09/06/20 09/06/20 Range/Units 07:35 07:35 WBC (4.0-10.2) K/uL RBC (4.33-5.41) M/uL Hgb (13.1-16.8) g/dL Hct (39.0-49.0) % MCV (84.0-98.0) fL MCH (28.2-33.3) pg MCHC (31.7-36.0) g/dL RDW (11.2-14.1) % Plt Count (150-350) K/uL Neut % (Auto) (45.0-80.0) % Lymph % (Auto) (10.0-50.0) % [place] % (Auto) (2.0-14.0) % Eos % (Auto) (0.0-5.0) % Baso % (Auto) (0.0-2.0) % Neut # (Auto) (1.40-7.00) K/uL Lymph # (Auto) (0.50-3.50) K/uL [place] # (Auto) (0.00-1.00) K/uL Eos # (Auto) (0.00-0.50) K/uL Baso # (Auto) (0.00-0.20) K/uL INR 1.1 Sodium (136-145) mmol/L Potassium (3.5-5.1) mmol/L Chloride (98-107) mmol/L Carbon Dioxide (21.0-32.0) mmol/L BUN (7-18) mg/dL Creatinine (0.51-1.17) mg/dL Est Cr Clr Drug Dosing Estimated GFR (MDRD) mL/min Glucose (70-99) mg/dL Lactic Acid (0.4-2.0) mmol/L Calcium (8.5-10.1) mg/dL Iron 41 L (50-175) ug/dL TIBC 366 (250-450) ug/dL % Saturation 11.13196 Ferritin 99 (8-388) ng/mL Total Bilirubin (0.2-1.0) mg/dL AST (15-37) U/L ALT (12-78) U/L Alkaline Phosphatase (46-116) IU/L Troponin I (0.000-0.056) ng/mL NT-Pro-B Natriuret Pep (0-125) pg/mL Total Protein (6.4-8.2) g/dL Albumin (3.4-5.0) g/dL Vitamin B12 (193-986) pg/mL Specimen Type Urine Color Urine Appearance Urine pH (5.0-9.0) Ur Specific [place] (1.005-1.030) Urine Protein (NEGATIVE) mg/dL Urine Glucose (UA) (NEGATIVE) mg/dL Urine Ketones (NEGATIVE) mg/dL Urine Occult Blood (NEGATIVE) Urine Nitrite (NEGATIVE) Urine Bilirubin (NEGATIVE) Urine Urobilinogen (0.2-1.0) E.U./dL Ur Leukocyte Esterase (NEGATIVE) Urine RBC /HPF Urine WBC /HPF Ur Epithelial Cells /LPF Urine Bacteria (NONE TO FEW) /HPF Ethyl Alcohol (0.000-0.080) g/dL SARS-CoV-2 RNA (CARMINE) (NEGATIVE) Laboratory Tests 09/05/20 09/05/20 09/05/20 Range/Units 19:50 19:50 19:50 WBC 4.5 (4.0-10.2) K/uL RBC 3.33 L (4.33-5.41) M/uL Hgb 9.6 L (13.1-16.8) g/dL Hct 29.6 L (39.0-49.0) % MCV 88.9 (84.0-98.0) fL MCH 28.8 (28.2-33.3) pg MCHC 32.4 (31.7-36.0) g/dL RDW 15.6 H (11.2-14.1) % Plt Count 83 L (150-350) K/uL Neut % (Auto) 82.6 H (45.0-80.0) % Lymph % (Auto) 8.2 L (10.0-50.0) % [place] % (Auto) 6.8 (2.0-14.0) % Eos % (Auto) 2.2 (0.0-5.0) % Baso % (Auto) 0.2 (0.0-2.0) % Neut # (Auto) 3.74 (1.40-7.00) K/uL Lymph # (Auto) 0.37 L (0.50-3.50) K/uL [place] # (Auto) 0.31 (0.00-1.00) K/uL Eos # (Auto) 0.10 (0.00-0.50) K/uL Baso # (Auto) 0.01 (0.00-0.20) K/uL INR Sodium 143 (136-145) mmol/L Potassium 3.9 (3.5-5.1) mmol/L Chloride 109 H (98-107) mmol/L Carbon Dioxide 26.9 (21.0-32.0) mmol/L BUN 25 H (7-18) mg/dL Creatinine 1.03 (0.51-1.17) mg/dL Est Cr Clr Drug Dosing TNP Estimated GFR (MDRD) > 60 mL/min Glucose 97 (70-99) mg/dL Lactic Acid 0.8 (0.4-2.0) mmol/L Calcium 8.4 L (8.5-10.1) mg/dL Iron (50-175) ug/dL TIBC (250-450) ug/dL % Saturation Ferritin (8-388) ng/mL Total Bilirubin (0.2-1.0) mg/dL AST (15-37) U/L ALT (12-78) U/L Alkaline Phosphatase (46-116) IU/L Troponin I (0.000-0.056) ng/mL NT-Pro-B Natriuret Pep (0-125) pg/mL Total Protein (6.4-8.2) g/dL Albumin (3.4-5.0) g/dL Vitamin B12 (193-986) pg/mL Specimen Type Urine Color Urine Appearance Urine pH (5.0-9.0) Ur Specific [place] (1.005-1.030) Urine Protein (NEGATIVE) mg/dL Urine Glucose (UA) (NEGATIVE) mg/dL Urine Ketones (NEGATIVE) mg/dL Urine Occult Blood (NEGATIVE) Urine Nitrite (NEGATIVE) Urine Bilirubin (NEGATIVE) Urine Urobilinogen (0.2-1.0) E.U./dL Ur Leukocyte Esterase (NEGATIVE) Urine RBC /HPF Urine WBC /HPF Ur Epithelial Cells /LPF Urine Bacteria (NONE TO FEW) /HPF Ethyl Alcohol 0.000 (0.000-0.080) g/dL SARS-CoV-2 RNA (CARMINE) (NEGATIVE) 09/05/20 09/05/20 09/05/20 Range/Units 19:50 21:10 23:55 WBC (4.0-10.2) K/uL RBC (4.33-5.41) M/uL Hgb (13.1-16.8) g/dL Hct (39.0-49.0) % MCV (84.0-98.0) fL MCH (28.2-33.3) pg MCHC (31.7-36.0) g/dL RDW (11.2-14.1) % Plt Count (150-350) K/uL Neut % (Auto) (45.0-80.0) % Lymph % (Auto) (10.0-50.0) % [place] % (Auto) (2.0-14.0) % Eos % (Auto) (0.0-5.0) % Baso % (Auto) (0.0-2.0) % Neut # (Auto) (1.40-7.00) K/uL Lymph # (Auto) (0.50-3.50) K/uL [place] # (Auto) (0.00-1.00) K/uL Eos # (Auto) (0.00-0.50) K/uL Baso # (Auto) (0.00-0.20) K/uL INR Sodium (136-145) mmol/L Potassium (3.5-5.1) mmol/L Chloride (98-107) mmol/L Carbon Dioxide (21.0-32.0) mmol/L BUN (7-18) mg/dL Creatinine (0.51-1.17) mg/dL Est Cr Clr Drug Dosing Estimated GFR (MDRD) mL/min Glucose (70-99) mg/dL Lactic Acid (0.4-2.0) mmol/L Calcium (8.5-10.1) mg/dL Iron (50-175) ug/dL TIBC (250-450) ug/dL % Saturation Ferritin (8-388) ng/mL Total Bilirubin (0.2-1.0) mg/dL AST (15-37) U/L ALT (12-78) U/L Alkaline Phosphatase (46-116) IU/L Troponin I 0.000 (0.000-0.056) ng/mL NT-Pro-B Natriuret Pep 991 H (0-125) pg/mL Total Protein (6.4-8.2) g/dL Albumin (3.4-5.0) g/dL Vitamin B12 (193-986) pg/mL Specimen Type [place] Urine Color Yellow Urine Appearance Clear Urine pH 5.0 (5.0-9.0) Ur Specific [place] 1.015 (1.005-1.030) Urine Protein Negative (NEGATIVE) mg/dL Urine Glucose (UA) Negative (NEGATIVE) mg/dL Urine Ketones Negative (NEGATIVE) mg/dL Urine Occult Blood Small H (NEGATIVE) Urine Nitrite Negative (NEGATIVE) Urine Bilirubin Negative (NEGATIVE) Urine Urobilinogen 0.2 (0.2-1.0) E.U./dL Ur Leukocyte Esterase Negative (NEGATIVE) Urine RBC 0-5 /HPF Urine WBC Not seen /HPF Ur Epithelial Cells Not seen /LPF Urine Bacteria Not seen (NONE TO FEW) /HPF Ethyl Alcohol (0.000-0.080) g/dL SARS-CoV-2 RNA (CARMINE) Negative (NEGATIVE) 09/06/20 09/06/20 09/06/20 Range/Units 07:35 07:35 07:35 WBC 5.3 (4.0-10.2) K/uL RBC 3.57 L (4.33-5.41) M/uL Hgb 10.3 L (13.1-16.8) g/dL Hct 31.4 L (39.0-49.0) % MCV 88.0 (84.0-98.0) fL MCH 28.9 (28.2-33.3) pg MCHC 32.8 (31.7-36.0) g/dL RDW 15.5 H (11.2-14.1) % Plt Count 100 L (150-350) K/uL Neut % (Auto) 77.1 (45.0-80.0) % Lymph % (Auto) 10.9 (10.0-50.0) % [place] % (Auto) 7.7 (2.0-14.0) % Eos % (Auto) 3.9 (0.0-5.0) % Baso % (Auto) 0.4 (0.0-2.0) % Neut # (Auto) 4.10 (1.40-7.00) K/uL Lymph # (Auto) 0.58 (0.50-3.50) K/uL [place] # (Auto) 0.41 (0.00-1.00) K/uL Eos # (Auto) 0.21 (0.00-0.50) K/uL Baso # (Auto) 0.02 (0.00-0.20) K/uL INR Sodium 144 (136-145) mmol/L Potassium 3.6 (3.5-5.1) mmol/L Chloride 107 (98-107) mmol/L Carbon Dioxide 28.1 (21.0-32.0) mmol/L BUN 26 H (7-18) mg/dL Creatinine 1.10 (0.51-1.17) mg/dL Est Cr Clr Drug Dosing TNP Estimated GFR (MDRD) > 60 mL/min Glucose 113 H (70-99) mg/dL Lactic Acid 0.8 (0.4-2.0) mmol/L Calcium 8.9 (8.5-10.1) mg/dL Iron (50-175) ug/dL TIBC (250-450) ug/dL % Saturation Ferritin (8-388) ng/mL Total Bilirubin 0.7 (0.2-1.0) mg/dL AST 20 (15-37) U/L ALT 28 (12-78) U/L Alkaline Phosphatase 155 H (46-116) IU/L Troponin I 0.000 (0.000-0.056) ng/mL NT-Pro-B Natriuret Pep 893 H (0-125) pg/mL Total Protein 7.7 (6.4-8.2) g/dL Albumin 3.3 L (3.4-5.0) g/dL Vitamin B12 733 (193-986) pg/mL Specimen Type Urine Color Urine Appearance Urine pH (5.0-9.0) Ur Specific [place] (1.005-1.030) Urine Protein (NEGATIVE) mg/dL Urine Glucose (UA) (NEGATIVE) mg/dL Urine Ketones (NEGATIVE) mg/dL Urine Occult Blood (NEGATIVE) Urine Nitrite (NEGATIVE) Urine Bilirubin (NEGATIVE) Urine Urobilinogen (0.2-1.0) E.U./dL Ur Leukocyte Esterase (NEGATIVE) Urine RBC /HPF Urine WBC /HPF Ur Epithelial Cells /LPF Urine Bacteria (NONE TO FEW) /HPF Ethyl Alcohol (0.000-0.080) g/dL SARS-CoV-2 RNA (CARMINE) (NEGATIVE) 09/06/20 09/06/20 Range/Units 07:35 07:35 WBC (4.0-10.2) K/uL RBC (4.33-5.41) M/uL Hgb (13.1-16.8) g/dL Hct (39.0-49.0) % MCV (84.0-98.0) fL MCH (28.2-33.3) pg MCHC (31.7-36.0) g/dL RDW (11.2-14.1) % Plt Count (150-350) K/uL Neut % (Auto) (45.0-80.0) % Lymph % (Auto) (10.0-50.0) % [place] % (Auto) (2.0-14.0) % Eos % (Auto) (0.0-5.0) % Baso % (Auto) (0.0-2.0) % Neut # (Auto) (1.40-7.00) K/uL Lymph # (Auto) (0.50-3.50) K/uL [place] # (Auto) (0.00-1.00) K/uL Eos # (Auto) (0.00-0.50) K/uL Baso # (Auto) (0.00-0.20) K/uL INR 1.1 Sodium (136-145) mmol/L Potassium (3.5-5.1) mmol/L Chloride (98-107) mmol/L Carbon Dioxide (21.0-32.0) mmol/L BUN (7-18) mg/dL Creatinine (0.51-1.17) mg/dL Est Cr Clr Drug Dosing Estimated GFR (MDRD) mL/min Glucose (70-99) mg/dL Lactic Acid (0.4-2.0) mmol/L Calcium (8.5-10.1) mg/dL Iron 41 L (50-175) ug/dL TIBC 366 (250-450) ug/dL % Saturation 11.99166 Ferritin 99 (8-388) ng/mL Total Bilirubin (0.2-1.0) mg/dL AST (15-37) U/L ALT (12-78) U/L Alkaline Phosphatase (46-116) IU/L Troponin I (0.000-0.056) ng/mL NT-Pro-B Natriuret Pep (0-125) pg/mL Total Protein (6.4-8.2) g/dL Albumin (3.4-5.0) g/dL Vitamin B12 (193-986) pg/mL Specimen Type Urine Color Urine Appearance Urine pH (5.0-9.0) Ur Specific [place] (1.005-1.030) Urine Protein (NEGATIVE) mg/dL Urine Glucose (UA) (NEGATIVE) mg/dL Urine Ketones (NEGATIVE) mg/dL Urine Occult Blood (NEGATIVE) Urine Nitrite (NEGATIVE) Urine Bilirubin (NEGATIVE) Urine Urobilinogen (0.2-1.0) E.U./dL Ur Leukocyte Esterase (NEGATIVE) Urine RBC /HPF Urine WBC /HPF Ur Epithelial Cells /LPF Urine Bacteria (NONE TO FEW) /HPF Ethyl Alcohol (0.000-0.080) g/dL SARS-CoV-2 RNA (CARMINE) (NEGATIVE) Urine specimen set up for culture and sensitivitycath specimen Maxi Results Last 24 Hours: Previous culture and sensitivity from positive blood culture on 09/03/2020 is still pending. Med Orders - Current: Current Medications Acetaminophen (Acetaminophen 325 Mg Tab) 650 mg PO Q4H PRN PRN Reason: Pain/Fever Albuterol (Albuterol 0.083% 2.5 Mg/3 Ml Neb Soln) 2.5 mg NEB Q2H PRN PRN Reason: Dyspnea Albuterol/Ipratropium (Albuterol/Ipratropium 3.0-0.5 Mg/3 Ml Neb Soln) 3 ml NEB Q4HRRT PRN PRN Reason: Dyspnea Albuterol/Ipratropium (Albuterol/Ipratropium 3.0-0.5 Mg/3 Ml Neb Soln) 3 ml NEB Q6HRRT [facility]ARREL Last Admin: 09/06/20 08:08 Dose: 3 ml Documented by: Apixaban (Apixaban 5 Mg Tab) 5 mg PO BID [facility] Aripiprazole (Aripiprazole 10 Mg Tab) 5 mg PO BEDTIME [facility] Ascorbic Acid (Ascorbic Acid 500 Mg Tab) 500 mg PO DAILY [facility] Last Admin: 09/06/20 07:53 Dose: 500 mg Documented by: Budesonide (Budesonide 0.5 Mg/2 Ml Neb Susp) 0.5 mg NEB BIDRT [facility] Last Admin: 09/06/20 07:53 Dose: 0.5 mg Documented by: Ferrous Sulfate (Ferrous Sulfate 325 Mg Tab) 325 mg PO Q2D [facility] Last Admin: 09/06/20 08:08 Dose: 325 mg Documented by: Furosemide (Furosemide 40 Mg/4 Ml Vial) 40 mg IVPUSH Q8H [facility] Last Admin: 09/06/20 05:17 Dose: 40 mg Documented by: Gabapentin (Gabapentin 300 Mg Cap) 300 mg PO BID [facility] Last Admin: 09/06/20 07:54 Dose: 300 mg Documented by: Guaifenesin/Dextromethorphan (Dextromethorphan/Guaifenesin 600-30 Mg Tab.Er) 1 tab PO BID [facility] Last Admin: 09/06/20 07:54 Dose: 1 tab Documented by: Ceftriaxone Sodium 1 gm/ (Sodium Chloride) 100 mls @ 200 mls/hr IV Q12H [facility] Last Admin: 09/06/20 07:52 Dose: 200 mls/hr Documented by: Vancomycin HCl 1.5 gm/ Premix 300 mls @ 200 mls/hr IV Q24H [facility] Magnesium Oxide (Magnesium Oxide 400 Mg Tab) 400 mg PO BID@1200,1800 [facility] Non-Formulary Medication (Acetylcysteine [Nac]) 1 cap PO BID [facility] Ipratropium [ Atrovent 0.03% Nasal [place]]Ptown 2 spray NASBOTH BID [facility] Last Admin: 09/06/20 07:55 Dose: 2 spray Documented by: Pantoprazole Sodium (Pantoprazole 40 Mg Tab.Cr) 40 mg PO ACBREAKFAST [facility] Last Admin: 09/06/20 07:54 Dose: 40 mg Documented by: Potassium Chloride (Potassium Chloride 20 Meq Tab.Er) 20 meq PO TID [facility] Last Admin: 09/06/20 07:54 Dose: 20 meq Documented by: Sertraline HCl (Sertraline 50 Mg Tab) 200 mg PO DAILY [facility] Last Admin: 09/06/20 07:54 Dose: 200 mg Documented by: Sodium Chloride (Sodium Chloride 0.9% 10 Ml Syringe) 10 ml FLUSH Q12H [facility] Last Admin: 09/06/20 07:53 Dose: 10 ml Documented by: Sodium Chloride (Sodium Chloride 0.9% 10 Ml Syringe) 10 ml FLUSH ASDIRECTED PRN PRN Reason: Keep Vein Open Last Admin: 09/06/20 05:19 Dose: 10 ml Documented by: Tamsulosin HCl (Tamsulosin 0.4 Mg Cap.Er) 0.4 mg PO BEDTIME [facility] Temazepam (Temazepam 15 Mg Cap) 15 mg PO BEDTIME PRN PRN Reason: Insomnia Last Admin: 09/06/20 04:04 Dose: 15 mg Documented by: Vancomycin HCl (Pharmacy To Dose - Vancomycin) 1 dose .XX ASDIRECTED [facility] Discontinued Medications Budesonide (Budesonide 0.5 Mg/2 Ml Neb Susp) 0.5 mg NEB BIDRT [facility] Vancomycin HCl 1 gm/ Dextrose/ (Water) 250 mls @ 165 mls/hr IV Q24H [facility] Last Admin: 09/05/20 22:33 Dose: 165 mls/hr Documented by: - Exam Quality Assessment: Supplemental Oxygen, Urine Catheter (Placed on 09/05/2020 for accurate I's and O's), DVT Prophylaxis (Lovenox). No: Central Line/PICC, Skin Breakdown, Restraints Urinary Catheter Total Time: 0Days 2Hours General: Alert, Oriented, Cooperative, No Acute Distress HEENT: Pupils Equal, Pupils Reactive, Other (Patient is wearing glasses). No: Scleral Icterus Neck: Supple, Trachea Midline, No JVD, No Thyromegaly, Carotid Bruit (Stable mild bilateral carotid bruits versus transmitted heart sounds). No: Lymphadenopathy Lungs: Rales (Improved mild to moderate diffuse rales). No: Rhonchi, Rub, Wheezing Cardiovascular: Regular Rate, Irregular Rhythm, Murmurs (Stable 2/6 SAM[place] of the aortic valve with some radiation to the mitral area). No: Gallops, Rubs GI/Abdominal Exam: Normal Bowel Sounds, Soft, Non-Tender, No Organomegaly, No Distention, No Abnormal Bruit, No Mass, Other (Obese). No: Guarding (Male) Exam: Deferred Back Exam: Normal Inspection, Full Range of Motion. No: CVA Tenderness (L), CVA Tenderness (R), Muscle Spasm Extremities: Non-Tender, No Pedal Edema, Normal Capillary Refill, Other (Moderate ecchymosis on the forearms bilaterally. ELAYNE hose in place.). No: Lonnie's Sign Peripheral Pulses: 2+: Radial (L), Radial (R), Dorsalis Pedis (L), Dorsalis Pedis (R) Skin: Ecchymosis (As above) Neurological: No New Focal Deficit, Other (No clinical orthostasis) Psy/Mental Status: Alert, Normal Affect, Normal Mood. No: Agitated, Hallucinations, Withdrawal Symptoms #1 Interpretation EKG Date: 09/06/20 Time: 08:16 Rhythm: NSR (With occasional PACs) Rate (Beats/Min): 78 [place]: Normal (Neutral) P-Wave: Enlarged (Moderate diffuse biphasic P waves) QRS: Other (0.13 seconds representing a complete right bundle branch block with possible complete bifascicular bundle branch block) ST-T: Other (Nonspecific ST changes with T wave inversions in leads III, aVF, and V1 through V6 with progression of T wave inversions from V4 since last EKG) QT: Normal SD/PQ Interval: 0.25 seconds representing a moderate first-degree AV block Comparison: Change From Previous EKG (As above since 09/03/2020) EKG Interpretation Comments: 1. Diffuse coronary artery disease 2. 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 First-degree AV block 4. Left atrial enlargement - Patient Data Lab Results Last 24 hrs: Laboratory Results - last 24 hr 09/05/20 09/05/20 09/05/20 Range/Units 19:50 19:50 19:50 WBC 4.5 (4.0-10.2) K/uL RBC 3.33 L (4.33-5.41) M/uL Hgb 9.6 L (13.1-16.8) g/dL Hct 29.6 L (39.0-49.0) % MCV 88.9 (84.0-98.0) fL MCH 28.8 (28.2-33.3) pg MCHC 32.4 (31.7-36.0) g/dL RDW 15.6 H (11.2-14.1) % Plt Count 83 L (150-350) K/uL Neut % (Auto) 82.6 H (45.0-80.0) % Lymph % (Auto) 8.2 L (10.0-50.0) % [place] % (Auto) 6.8 (2.0-14.0) % Eos % (Auto) 2.2 (0.0-5.0) % Baso % (Auto) 0.2 (0.0-2.0) % Neut # (Auto) 3.74 (1.40-7.00) K/uL Lymph # (Auto) 0.37 L (0.50-3.50) K/uL [place] # (Auto) 0.31 (0.00-1.00) K/uL Eos # (Auto) 0.10 (0.00-0.50) K/uL Baso # (Auto) 0.01 (0.00-0.20) K/uL INR Sodium 143 (136-145) mmol/L Potassium 3.9 (3.5-5.1) mmol/L Chloride 109 H (98-107) mmol/L Carbon Dioxide 26.9 (21.0-32.0) mmol/L BUN 25 H (7-18) mg/dL Creatinine 1.03 (0.51-1.17) mg/dL Est Cr Clr Drug Dosing TNP Estimated GFR (MDRD) > 60 mL/min Glucose 97 (70-99) mg/dL Lactic Acid 0.8 (0.4-2.0) mmol/L Calcium 8.4 L (8.5-10.1) mg/dL Iron (50-175) ug/dL TIBC (250-450) ug/dL % Saturation Ferritin (8-388) ng/mL Total Bilirubin (0.2-1.0) mg/dL AST (15-37) U/L ALT (12-78) U/L Alkaline Phosphatase (46-116) IU/L Troponin I (0.000-0.056) ng/mL NT-Pro-B Natriuret Pep (0-125) pg/mL Total Protein (6.4-8.2) g/dL Albumin (3.4-5.0) g/dL Vitamin B12 (193-986) pg/mL Specimen Type Urine Color Urine Appearance Urine pH (5.0-9.0) Ur Specific [place] (1.005-1.030) Urine Protein (NEGATIVE) mg/dL Urine Glucose (UA) (NEGATIVE) mg/dL Urine Ketones (NEGATIVE) mg/dL Urine Occult Blood (NEGATIVE) Urine Nitrite (NEGATIVE) Urine Bilirubin (NEGATIVE) Urine Urobilinogen (0.2-1.0) E.U./dL Ur Leukocyte Esterase (NEGATIVE) Urine RBC /HPF Urine WBC /HPF Ur Epithelial Cells /LPF Urine Bacteria (NONE TO FEW) /HPF Ethyl Alcohol 0.000 (0.000-0.080) g/dL SARS-CoV-2 RNA (CARMINE) (NEGATIVE) 09/05/20 09/05/20 09/05/20 Range/Units 19:50 21:10 23:55 WBC (4.0-10.2) K/uL RBC (4.33-5.41) M/uL Hgb (13.1-16.8) g/dL Hct (39.0-49.0) % MCV (84.0-98.0) fL MCH (28.2-33.3) pg MCHC (31.7-36.0) g/dL RDW (11.2-14.1) % Plt Count (150-350) K/uL Neut % (Auto) (45.0-80.0) % Lymph % (Auto) (10.0-50.0) % [place] % (Auto) (2.0-14.0) % Eos % (Auto) (0.0-5.0) % Baso % (Auto) (0.0-2.0) % Neut # (Auto) (1.40-7.00) K/uL Lymph # (Auto) (0.50-3.50) K/uL [place] # (Auto) (0.00-1.00) K/uL Eos # (Auto) (0.00-0.50) K/uL Baso # (Auto) (0.00-0.20) K/uL INR Sodium (136-145) mmol/L Potassium (3.5-5.1) mmol/L Chloride (98-107) mmol/L Carbon Dioxide (21.0-32.0) mmol/L BUN (7-18) mg/dL Creatinine (0.51-1.17) mg/dL Est Cr Clr Drug Dosing Estimated GFR (MDRD) mL/min Glucose (70-99) mg/dL Lactic Acid (0.4-2.0) mmol/L Calcium (8.5-10.1) mg/dL Iron (50-175) ug/dL TIBC (250-450) ug/dL % Saturation Ferritin (8-388) ng/mL Total Bilirubin (0.2-1.0) mg/dL AST (15-37) U/L ALT (12-78) U/L Alkaline Phosphatase (46-116) IU/L Troponin I 0.000 (0.000-0.056) ng/mL NT-Pro-B Natriuret Pep 991 H (0-125) pg/mL Total Protein (6.4-8.2) g/dL Albumin (3.4-5.0) g/dL Vitamin B12 (193-986) pg/mL Specimen Type [place] Urine Color Yellow Urine Appearance Clear Urine pH 5.0 (5.0-9.0) Ur Specific [place] 1.015 (1.005-1.030) Urine Protein Negative (NEGATIVE) mg/dL Urine Glucose (UA) Negative (NEGATIVE) mg/dL Urine Ketones Negative (NEGATIVE) mg/dL Urine Occult Blood Small H (NEGATIVE) Urine Nitrite Negative (NEGATIVE) Urine Bilirubin Negative (NEGATIVE) Urine Urobilinogen 0.2 (0.2-1.0) E.U./dL Ur Leukocyte Esterase Negative (NEGATIVE) Urine RBC 0-5 /HPF Urine WBC Not seen /HPF Ur Epithelial Cells Not seen /LPF Urine Bacteria Not seen (NONE TO FEW) /HPF Ethyl Alcohol (0.000-0.080) g/dL SARS-CoV-2 RNA (CARMINE) Negative (NEGATIVE) 09/06/20 09/06/20 09/06/20 Range/Units 07:35 07:35 07:35 WBC 5.3 (4.0-10.2) K/uL RBC 3.57 L (4.33-5.41) M/uL Hgb 10.3 L (13.1-16.8) g/dL Hct 31.4 L (39.0-49.0) % MCV 88.0 (84.0-98.0) fL MCH 28.9 (28.2-33.3) pg MCHC 32.8 (31.7-36.0) g/dL RDW 15.5 H (11.2-14.1) % Plt Count 100 L (150-350) K/uL Neut % (Auto) 77.1 (45.0-80.0) % Lymph % (Auto) 10.9 (10.0-50.0) % [place] % (Auto) 7.7 (2.0-14.0) % Eos % (Auto) 3.9 (0.0-5.0) % Baso % (Auto) 0.4 (0.0-2.0) % Neut # (Auto) 4.10 (1.40-7.00) K/uL Lymph # (Auto) 0.58 (0.50-3.50) K/uL [place] # (Auto) 0.41 (0.00-1.00) K/uL Eos # (Auto) 0.21 (0.00-0.50) K/uL Baso # (Auto) 0.02 (0.00-0.20) K/uL INR Sodium 144 (136-145) mmol/L Potassium 3.6 (3.5-5.1) mmol/L Chloride 107 (98-107) mmol/L Carbon Dioxide 28.1 (21.0-32.0) mmol/L BUN 26 H (7-18) mg/dL Creatinine 1.10 (0.51-1.17) mg/dL Est Cr Clr Drug Dosing TNP Estimated GFR (MDRD) > 60 mL/min Glucose 113 H (70-99) mg/dL Lactic Acid 0.8 (0.4-2.0) mmol/L Calcium 8.9 (8.5-10.1) mg/dL Iron (50-175) ug/dL TIBC (250-450) ug/dL % Saturation Ferritin (8-388) ng/mL Total Bilirubin 0.7 (0.2-1.0) mg/dL AST 20 (15-37) U/L ALT 28 (12-78) U/L Alkaline Phosphatase 155 H (46-116) IU/L Troponin I 0.000 (0.000-0.056) ng/mL NT-Pro-B Natriuret Pep 893 H (0-125) pg/mL Total Protein 7.7 (6.4-8.2) g/dL Albumin 3.3 L (3.4-5.0) g/dL Vitamin B12 733 (193-986) pg/mL Specimen Type Urine Color Urine Appearance Urine pH (5.0-9.0) Ur Specific [place] (1.005-1.030) Urine Protein (NEGATIVE) mg/dL Urine Glucose (UA) (NEGATIVE) mg/dL Urine Ketones (NEGATIVE) mg/dL Urine Occult Blood (NEGATIVE) Urine Nitrite (NEGATIVE) Urine Bilirubin (NEGATIVE) Urine Urobilinogen (0.2-1.0) E.U./dL Ur Leukocyte Esterase (NEGATIVE) Urine RBC /HPF Urine WBC /HPF Ur Epithelial Cells /LPF Urine Bacteria (NONE TO FEW) /HPF Ethyl Alcohol (0.000-0.080) g/dL SARS-CoV-2 RNA (CARMINE) (NEGATIVE) 09/06/20 09/06/20 Range/Units 07:35 07:35 WBC (4.0-10.2) K/uL RBC (4.33-5.41) M/uL Hgb (13.1-16.8) g/dL Hct (39.0-49.0) % MCV (84.0-98.0) fL MCH (28.2-33.3) pg MCHC (31.7-36.0) g/dL RDW (11.2-14.1) % Plt Count (150-350) K/uL Neut % (Auto) (45.0-80.0) % Lymph % (Auto) (10.0-50.0) % [place] % (Auto) (2.0-14.0) % Eos % (Auto) (0.0-5.0) % Baso % (Auto) (0.0-2.0) % Neut # (Auto) (1.40-7.00) K/uL Lymph # (Auto) (0.50-3.50) K/uL [place] # (Auto) (0.00-1.00) K/uL Eos # (Auto) (0.00-0.50) K/uL Baso # (Auto) (0.00-0.20) K/uL INR 1.1 Sodium (136-145) mmol/L Potassium (3.5-5.1) mmol/L Chloride (98-107) mmol/L Carbon Dioxide (21.0-32.0) mmol/L BUN (7-18) mg/dL Creatinine (0.51-1.17) mg/dL Est Cr Clr Drug Dosing Estimated GFR (MDRD) mL/min Glucose (70-99) mg/dL Lactic Acid (0.4-2.0) mmol/L Calcium (8.5-10.1) mg/dL Iron 41 L (50-175) ug/dL TIBC 366 (250-450) ug/dL % Saturation 11.37271 Ferritin 99 (8-388) ng/mL Total Bilirubin (0.2-1.0) mg/dL AST (15-37) U/L ALT (12-78) U/L Alkaline Phosphatase (46-116) IU/L Troponin I (0.000-0.056) ng/mL NT-Pro-B Natriuret Pep (0-125) pg/mL Total Protein (6.4-8.2) g/dL Albumin (3.4-5.0) g/dL Vitamin B12 (193-986) pg/mL Specimen Type Urine Color Urine Appearance Urine pH (5.0-9.0) Ur Specific [place] (1.005-1.030) Urine Protein (NEGATIVE) mg/dL Urine Glucose (UA) (NEGATIVE) mg/dL Urine Ketones (NEGATIVE) mg/dL Urine Occult Blood (NEGATIVE) Urine Nitrite (NEGATIVE) Urine Bilirubin (NEGATIVE) Urine Urobilinogen (0.2-1.0) E.U./dL Ur Leukocyte Esterase (NEGATIVE) Urine RBC /HPF Urine WBC /HPF Ur Epithelial Cells /LPF Urine Bacteria (NONE TO FEW) /HPF Ethyl Alcohol (0.000-0.080) g/dL SARS-CoV-2 RNA (CARMINE) (NEGATIVE) Result Diagrams: 09/06/20 07:35 09/06/20 07:35 Sepsis Event Note - Evaluation Sepsis Screening Result: No Definite Risk - Focused Exam Vital Signs: Vital Signs Temp Pulse Resp BP Pulse Ox 09/06/20 08:00 36.7 C 80 26 H 156/88 H 96 09/06/20 03:59 36.8 C 84 20 144/80 H 92 L 09/05/20 23:41 36.5 C 72 24 H 124/68 95 - Problem List & Annotations (1) Sepsis SNOMED Code(s): 93150044 Code(s): A41.9 - SEPSIS, UNSPECIFIED ORGANISM Status: Acute Priority: High Current Visit: Yes Onset Date: ~09/03/20 Qualifiers: Sepsis acute organ dysfunction status: without acute organ dysfunction Annotation/Comment:: Positive gram positive cocci as above with ID still pending. Sepsis protocol initiated including sepsis order set. Patient received only 1 dose of IV Rocephin during recent hospitalization and was not discharged on any antibiotics. Reinitiate high-dose IV Rocephin with additional IV vancomycin. Repeat UA was collected at time of Ruiz cath placement for ac curate I's and O's with culture and sensitivity still pending. Attempt to obtain sputum KYARA. Lactic acid level is normal. (2) CHF (congestive heart failure) SNOMED Code(s): 37043621 Code(s): I50.9 - HEART FAILURE, UNSPECIFIED Status: Chronic Priority: High Current Visit: Yes Qualifiers: Heart failure type: combined systolic and diastolic Heart failure chronicity: acute on chronic Qualified Code(s): I50.43 - Acute on chronic combined systolic (congestive) and diastolic (congestive) heart failure Annotation/Comment:: Significant CHF by chest x-ray with elevated BNP, however no chest pain or other anginal type symptoms. Troponin I is normal. Repeat cardiac enzymes in the a.m. Continue aggressive IV Lasix therapy. Note con comitant probable pneumonia despite absence of fever, leukocytosis, etc. (3) Coronary artery disease SNOMED Code(s): 56942901 Code(s): I25.10 - ATHSCL HEART DISEASE OF [place] CORONARY ARTERY W/O ANG PCTRS Status: Chronic Priority: High Current Visit: Yes Qualifiers: Coronary Disease-Associated Artery/Lesion type: [place] artery [place] vs. transplanted heart: [place] heart Associated angina: without angina Qualified Code(s): I25.10 - Atherosclerotic heart disease of [place] coronary artery without angina pectoris Annotation/Comment:: No Chest pain or anginal type symptoms, however evidence of diffuse cardiac ischemia by resting EKG in the past. Distant echocardiogram on 01/04/2018 with repeat echocardiogram on an outpatient basis depending on his clinical course. He would also benefit from a repeat dobutamine Cardiolite stress test with cardiology consultation depending on his clinical course. (4) COPD (chronic obstructive pulmonary disease) SNOMED Code(s): 42614850 Code(s): J44.9 - CHRONIC OBSTRUCTIVE PULMONARY DISEASE, UNSPECIFIED Status: Chronic Priority: Medium Current Visit: Yes Qualifiers: COPD type: emphysema Emphysema type: panlobular Qualified Code(s): J43.1 - Panlobular emphysema Annotation/Comment:: As above. Note chronic O2 therapy required. Continue nebulizer treatments. (5) Peptic reflux disease SNOMED Code(s): 029702899 Code(s): K21.9 - GASTRO-ESOPHAGEAL REFLUX DISEASE WITHOUT ESOPHAGITIS Status: Chronic Priority: Medium Current Visit: Yes Annotation/Comment:: No current abdominal complaints with stable anemia since discharge on 09/05 although some drop in his hemoglobin during that observation. Continue current therapy with anemia work-up with blood work on 09/06 indicated mild iron deficiency with normal vitamin B12 level. Increase iron supplementation with recommended repeat TIBC panel and ferritin level in about 4 weeks. (6) Anemia SNOMED Code(s): 484530220 Code(s): D64.9 - ANEMIA, UNSPECIFIED Status: Acute Priority: High Current Visit: Yes Qualifiers: Anemia type: other cause Other causes of anemia: other cause, not classified Qualified Code(s): D64.89 - Other specified anemias Annotation/Comment:: As above. (7) Osteoarthritis SNOMED Code(s): 815852953 Code(s): M19.90 - UNSPECIFIED OSTEOARTHRITIS, UNSPECIFIED SITE Status: Chronic Priority: Medium Current Visit: Yes Qualifiers: Osteoarthritis location: multiple joints Osteoarthritis type: primary Qualified Code(s): M89.49 - Other hypertrophic osteoarthropathy, multiple sites Annotation/Comment:: Stable by history with history of hyperuricemia but no recent gout attacks. Note PT and OT ordered on 09/06 for strengthening. - Problem List Review Problem List Initiated/Reviewed/Updated: Yes - My Orders Last 24 Hours: My Active Orders 09/05/20 19:40 Acetaminophen [TylenoL] 650 mg PO Q4H PRN Albuterol [Proventil Neb Soln] 2.5 mg NEB Q2H PRN Albuterol/Ipratropium [DuoNeb 3.0-0.5 MG/3 ML] 3 ml NEB Q4HRRT PRN Temazepam [Restoril] 15 mg PO BEDTIME PRN 09/05/20 19:41 Antiembolic Devices [RC] .Routine Communication Order [RC] PER UNIT ROUTINE Communication Order [RC] PER UNIT ROUTINE Height and Weight [RC] DAILY Intake and Output Strict [RC] QSHIFT Oxygen Therapy [RC] CONTINUOUS Pulse Oximetry [RC] ASDIRECTED VTE/DVT Education [RC] PER UNIT ROUTINE Vital Signs [RC] 00,04,08,12,16,20 OCCULT BLOOD DIAGNOSTIC [OP] Routine DVT/VTE Prophylaxis Reflex [OM.PC] Routine GM Immunization Reflex [OM.PC] Click to Edit 09/05/20 19:44 Chest 2V [CR] Urgent 09/05/20 19:45 Admission Status [Patient Status] [ADT] Routine Sodium Chloride 0.9% [Saline Flush] 10 ml FLUSH Q12H 09/05/20 19:50 CULTURE SPUTUM + SMEAR [RM] Stat Sodium Chloride 0.9% [Saline Flush] 10 ml FLUSH ASDIRECTED PRN Saline Lock Insert [OM.PC] Stat Severe Sepsis Onset Time [OM.PC] Stat 09/05/20 19:52 CULTURE URINE [RM] Routine 09/05/20 19:58 Cardiac Monitoring [RC] Q2HR 09/05/20 20:00 Budesonide [Pulmicort] 0.5 mg NEB BIDRT cefTRIAXone [Rocephin] 1 gm Sodium Chloride 0.9% [Normal Saline] 100 ml IV Q12H 09/05/20 21:08 RT Aerosol Therapy [RC] 02,08,14,20 09/05/20 21:15 Furosemide [Lasix] 40 mg IVPUSH Q8H 09/05/20 22:05 RT Aerosol Therapy [RC] 08,20 Resuscitation Status Routine 09/06/20 02:00 Albuterol/Ipratropium [DuoNeb 3.0-0.5 MG/3 ML] 3 ml NEB Q6HRRT 09/06/20 05:11 EKG Documentation Completion [RC] ASDIRECTED 09/06/20 Breakfast Heart Healthy Diet [DIET] Pantoprazole [ProTONIX] 40 mg PO ACBREAKFAST 09/06/20 08:00 Acetylcysteine [Nac] 1 cap PO BID Ascorbic Acid [Vitamin C] 500 mg PO DAILY Dextromethorphan/guaiFENesin [Mucinex DM ER 600-30 MG] 1 tab PO BID Gabapentin [Neurontin] 300 mg PO BID Ipratropium [Atrovent 0.03% Nasal [place]] 2 spray NASBOTH BID Potassium Chloride [Klor-Con M20] 20 meq PO TID Sertraline [Zoloft] 200 mg PO DAILY 09/06/20 09:00 Ferrous Sulfate 325 mg PO Q2D 09/06/20 10:30 Pharmacy to Dose - Vancomycin 1 dose .XX ASDIRECTED 09/06/20 12:00 Magnesium Oxide 400 mg PO BID@1200,1800 09/06/20 18:00 Apixaban [Eliquis] 5 mg PO BID 09/06/20 20:00 ARIPiprazole [Abilify] 5 mg PO BEDTIME Tamsulosin [Flomax] 0.4 mg PO BEDTIME 09/06/20 22:00 VANCOmycin 1.5 GM/300 ML 1.5 gm Premix Bag 1 bag IV Q24H 09/08/20 21:30 VANCOMYCIN TROUGH [CHEM] Routine - Assessment Assessment:: As above - Plan Plan:: As above. Extensive precautions were given to the patient, who is in agreement with the treatment plan. The patient will require about 4-7 days of inpatient/acute care secondary to multiple health problems as above. Extended hospital stay required secondary to sepsis, etc. as above. Alverto marrero physician assumes care in the a.m.
[2020-09-06] MEDS: Magnesium Oxide 400 MG Tab PO SCH ×2 (12:23→17:35)
[2020-09-06] MEDS: Enoxaparin 40 MG/0.4 ML Syringe SUBCUT SCH (12:23)
[2020-09-06] MEDS ORDERED: Apixaban 5 MG Tab PO SCH (18:00)
[2020-09-06] MEDS: Tamsulosin 0.4 MG Cap.ER PO SCH (19:38)
[2020-09-06] MEDS: ARIPiprazole 10 MG Tab PO SCH (19:38)
[2020-09-06] MEDS ORDERED: VANCOmycin 1.5 GM/300 ML 1.5 GM in Premix Bag 1 BAG IV SCH (22:00)
[2020-09-07] MEDS: Albuterol/Ipratropium 3.0-0.5 MG/3 ML Neb Soln NEB SCH ×4 (02:21→19:32)
[2020-09-07] MEDS: Furosemide 40 MG/4 ML VIAL IVPUSH SCH (06:24)
[2020-09-07] MEDS: Sodium Chloride 0.9% 10 ML Syringe FLUSH SCH ×3 (06:25→19:40)
[2020-09-07] MEDS: cefTRIAXone 1 GM in Sodium Chloride 0.9% 100 ML IV SCH ×2 (08:27→19:32)
[2020-09-07] MEDS: Enoxaparin 40 MG/0.4 ML Syringe SUBCUT SCH (08:28)
[2020-09-07] MEDS: Dextromethorphan/guaiFENesin 600-30 MG Tab.ER PO SCH ×2 (08:29→17:59)
[2020-09-07] MEDS: IPRATROPIUM NASBOTH SCH ×2 (08:29→17:58)
[2020-09-07] MEDS: Gabapentin 300 MG Cap PO SCH ×2 (08:29→17:59)
[2020-09-07] MEDS: Sertraline 50 MG Tab PO SCH (08:29)
[2020-09-07] MEDS: Ascorbic Acid 500 MG Tab PO SCH (08:29)
[2020-09-07] MEDS: [UNRECOGNIZED DRUG - OTHER] NASBOTH SCH ×2 (08:29→17:58)
[2020-09-07] MEDS: Budesonide 0.5 MG/2 ML Neb Susp NEB SCH ×2 (08:29→19:32)
[2020-09-07] MEDS: Pantoprazole 40 MG Tab.CR PO SCH (08:30)
[2020-09-07] MEDS: Potassium Chloride 20 MEQ Tab.ER PO SCH ×2 (08:30→12:21)
[2020-09-07 09:35] LABS: CHLORIDE,CL 108 mmol/L (98-107); SODIUM,NA 148 mmol/L (136-145)
--- NOTE | 2020-09-07 10:45 | PCM.PN ---
- General Info Date of Service: 09/07/20 Subjective Update: Pt. did well overnight. He states that his cough has improved, and he denies any current shortness of breath. Pt. currently on IV rocephin and vancomycin for blo od cultures positive for gram positive cocci. Susceptibility is back today. The bacteria is MSSA. Pt. continues to be heavily diruesed. He is fluid restricted. He is at a deficit of 3160. Pt. reports he has become somewhat lightheaded, particularly when changing position from lying to sitting and sitting to standing. He is still quite weak, and has not been ambulating much. Pt. is receiving IV lovenox for DVT prophylaxis. Functional Status: Reports: Pain Controlled - Review of Systems General: Reports: No Symptoms HEENT: Reports: No Symptoms Pulmonary: Reports: Shortness of Breath Cardiovascular: Reports: Lightheadedness Gastrointestinal: Reports: No Symptoms Genitourinary: Reports: No Symptoms Musculoskeletal: Reports: No Symptoms Skin: Reports: No Symptoms Neurological: Reports: No Symptoms Psychiatric: Reports: No Symptoms - Patient Data Vitals - Most Recent: Last Vital Signs Temp 36.9 C 09/07/20 08:00 Pulse 84 09/07/20 08:00 Resp 20 09/07/20 08:00 BP 136/80 09/07/20 08:00 Pulse Ox 94 L 09/07/20 08:00 Weight - Most Recent: 126.325 kg I&O - Last 24 Hours: Intake & Output 09/06/20 09/07/20 09/07/20 22:59 06:59 14:59 Intake Total 540 200 100 Output Total 1200 2300 Balance -660 -2100 100 Lab Results Last 24 Hours: Laboratory Results - last 24 hr 09/07/20 09/07/20 Range/Units 07:54 07:54 WBC 4.0 (4.0-10.2) K/uL RBC 3.50 L (4.33-5.41) M/uL Hgb 10.2 L (13.1-16.8) g/dL Hct 31.1 L (39.0-49.0) % MCV 88.9 (84.0-98.0) fL MCH 29.1 (28.2-33.3) pg MCHC 32.8 (31.7-36.0) g/dL RDW 15.7 H (11.2-14.1) % Plt Count 118 L (150-350) K/uL Neut % (Auto) 69.1 (45.0-80.0) % Lymph % (Auto) 12.2 (10.0-50.0) % [place] % (Auto) 12.7 (2.0-14.0) % Eos % (Auto) 5.5 H (0.0-5.0) % Baso % (Auto) 0.5 (0.0-2.0) % Neut # (Auto) 2.77 (1.40-7.00) K/uL Lymph # (Auto) 0.49 L (0.50-3.50) K/uL [place] # (Auto) 0.51 (0.00-1.00) K/uL Eos # (Auto) 0.22 (0.00-0.50) K/uL Baso # (Auto) 0.02 (0.00-0.20) K/uL Sodium 148 H (136-145) mmol/L Potassium 4.0 (3.5-5.1) mmol/L Chloride 108 H (98-107) mmol/L Carbon Dioxide 29.5 (21.0-32.0) mmol/L BUN 27 H (7-18) mg/dL Creatinine 1.15 (0.51-1.17) mg/dL Est Cr Clr Drug Dosing TNP Estimated GFR (MDRD) > 60 mL/min Glucose 106 H (70-99) mg/dL Uric Acid 8.0 H (2.6-7.2) mg/dL Calcium 8.4 L (8.5-10.1) mg/dL Magnesium 1.5 L (1.8-2.4) mg/dL Troponin I 0.000 (0.000-0.056) ng/mL NT-Pro-B Natriuret Pep 322 H (0-125) pg/mL Maxi Results Last 24 Hours: Microbiology 09/05/20 19:52 Urine Culture - Final Urine, Clean Catch NO GROWTH AFTER 2 DAYS 09/06/20 15:40 Stool Occult Blood (MAXI) - Final Stool / Feces NEGATIVE OCCULT BLOOD REFERENCE RANGE: NEGATIVE Med Orders - Current: Current Medications Acetaminophen (Acetaminophen 325 Mg Tab) 650 mg PO Q4H PRN PRN Reason: Pain/Fever Albuterol (Albuterol 0.083% 2.5 Mg/3 Ml Neb Soln) 2.5 mg NEB Q2H PRN PRN Reason: Dyspnea Albuterol/Ipratropium (Albuterol/Ipratropium 3.0-0.5 Mg/3 Ml Neb Soln) 3 ml NEB Q4HRRT PRN PRN Reason: Dyspnea Albuterol/Ipratropium (Albuterol/Ipratropium 3.0-0.5 Mg/3 Ml Neb Soln) 3 ml NEB Q6HRRT [facility] Last Admin: 09/07/20 08:28 Dose: 3 ml Documented by: Aripiprazole (Aripiprazole 10 Mg Tab) 5 mg PO BEDTIME [facility] Last Admin: 09/06/20 19:38 Dose: 5 mg Documented by: Ascorbic Acid (Ascorbic Acid 500 Mg Tab) 500 mg PO DAILY [facility] Last Admin: 09/07/20 08:29 Dose: 500 mg Documented by: Budesonide (Budesonide 0.5 Mg/2 Ml Neb Susp) 0.5 mg NEB BIDRT [facility] Last Admin: 09/07/20 08:29 Dose: 0.5 mg Documented by: Enoxaparin Sodium (Enoxaparin 40 Mg/0.4 Ml Syringe) 40 mg SUBCUT DAILY [facility] Last Admin: 09/07/20 08:28 Dose: 40 mg Documented by: Ferrous Sulfate (Ferrous Sulfate 325 Mg Tab) 325 mg PO Q2D [facility] Last Admin: 09/06/20 08:08 Dose: 325 mg Documented by: Furosemide (Furosemide 40 Mg/4 Ml Vial) 40 mg IVPUSH DAILY [facility] Gabapentin (Gabapentin 300 Mg Cap) 300 mg PO BID [facility] Last Admin: 09/07/20 08:29 Dose: 300 mg Documented by: Guaifenesin/Dextromethorphan (Dextromethorphan/Guaifenesin 600-30 Mg Tab.Er) 1 tab PO BID [facility] Last Admin: 09/07/20 08:29 Dose: 1 tab Documented by: Ceftriaxone Sodium 1 gm/ (Sodium Chloride) 100 mls @ 200 mls/hr IV Q12H [facility] Last Admin: 09/07/20 08:27 Dose: 200 mls/hr Documented by: Magnesium Oxide (Magnesium Oxide 400 Mg Tab) 400 mg PO BID@1200,1800 [facility] Last Admin: 09/06/20 17:35 Dose: 400 mg Documented by: Non-Formulary Medication (Acetylcysteine [Nac]) 1 cap PO BID [facility] Ipratropium [ Atrovent 0.03% Nasal [place] 2 spray NASBOTH BID [facility] Last Admin: 09/07/20 08:29 Dose: 2 spray Documented by: Pantoprazole Sodium (Pantoprazole 40 Mg Tab.Cr) 40 mg PO ACBREAKFAST [facility] Last Admin: 09/07/20 08:30 Dose: 40 mg Documented by: Potassium Chloride (Potassium Chloride 20 Meq Tab.Er) 20 meq PO TID [facility] Last Admin: 09/07/20 08:30 Dose: 20 meq Documented by: Sertraline HCl (Sertraline 50 Mg Tab) 200 mg PO DAILY [facility] Last Admin: 09/07/20 08:29 Dose: 200 mg Documented by: Sodium Chloride (Sodium Chloride 0.9% 10 Ml Syringe) 10 ml FLUSH Q12H [facility] Last Admin: 09/07/20 08:27 Dose: 10 ml Documented by: Sodium Chloride (Sodium Chloride 0.9% 10 Ml Syringe) 10 ml FLUSH ASDIRECTED PRN PRN Reason: Keep Vein Open Last Admin: 09/06/20 12:24 Dose: 10 ml Documented by: Tamsulosin HCl (Tamsulosin 0.4 Mg Cap.Er) 0.4 mg PO BEDTIME [facility] Last Admin: 09/06/20 19:38 Dose: 0.4 mg Documented by: Temazepam (Temazepam 15 Mg Cap) 15 mg PO BEDTIME PRN PRN Reason: Insomnia Last Admin: 09/06/20 04:04 Dose: 15 mg Documented by: Discontinued Medications Budesonide (Budesonide 0.5 Mg/2 Ml Neb Susp) 0.5 mg NEB BIDRT [facility] Furosemide (Furosemide 40 Mg/4 Ml Vial) 40 mg IVPUSH Q8H [facility] Last Admin: 09/07/20 06:24 Dose: 40 mg Documented by: Vancomycin HCl 1 gm/ Dextrose/ (Water) 250 mls @ 165 mls/hr IV Q24H [facility] Last Admin: 09/05/20 22:33 Dose: 165 mls/hr Documented by: Vancomycin HCl 1.5 gm/ Premix 300 mls @ 200 mls/hr IV Q24H [facility] Last Admin: 09/06/20 21:23 Dose: 200 mls/hr Documented by: Vancomycin HCl (Pharmacy To Dose - Vancomycin) 1 dose .XX ASDIRECTED DARREL - Exam Quality Assessment: Supplemental Oxygen Urinary Catheter Total Time: 0Days 23Hours General: Alert, Oriented Lungs: Decreased Breath Sounds Cardiovascular: Regular Rate, Regular Rhythm GI/Abdominal Exam: Normal Bowel Sounds, Soft, Non-Tender, No Organomegaly, No Distention, No Mass Back Exam: Normal Inspection, Full Range of Motion Extremities: Normal Inspection, Normal Range of Motion Skin: Warm, Dry Neurological: No New Focal Deficit Psy/Mental Status: Alert, Normal Affect, Normal Mood #1 Interpretation Rhythm: NSR QRS: RBBB - Patient Data Lab Results Last 24 hrs: Laboratory Results - last 24 hr 09/07/20 09/07/20 Range/Units 07:54 07:54 WBC 4.0 (4.0-10.2) K/uL RBC 3.50 L (4.33-5.41) M/uL Hgb 10.2 L (13.1-16.8) g/dL Hct 31.1 L (39.0-49.0) % MCV 88.9 (84.0-98.0) fL MCH 29.1 (28.2-33.3) pg MCHC 32.8 (31.7-36.0) g/dL RDW 15.7 H (11.2-14.1) % Plt Count 118 L (150-350) K/uL Neut % (Auto) 69.1 (45.0-80.0) % Lymph % (Auto) 12.2 (10.0-50.0) % [place] % (Auto) 12.7 (2.0-14.0) % Eos % (Auto) 5.5 H (0.0-5.0) % Baso % (Auto) 0.5 (0.0-2.0) % Neut # (Auto) 2.77 (1.40-7.00) K/uL Lymph # (Auto) 0.49 L (0.50-3.50) K/uL [place] # (Auto) 0.51 (0.00-1.00) K/uL Eos # (Auto) 0.22 (0.00-0.50) K/uL Baso # (Auto) 0.02 (0.00-0.20) K/uL Sodium 148 H (136-145) mmol/L Potassium 4.0 (3.5-5.1) mmol/L Chloride 108 H (98-107) mmol/L Carbon Dioxide 29.5 (21.0-32.0) mmol/L BUN 27 H (7-18) mg/dL Creatinine 1.15 (0.51-1.17) mg/dL Est Cr Clr Drug Dosing TNP Estimated GFR (MDRD) > 60 mL/min Glucose 106 H (70-99) mg/dL Uric Acid 8.0 H (2.6-7.2) mg/dL Calcium 8.4 L (8.5-10.1) mg/dL Magnesium 1.5 L (1.8-2.4) mg/dL Troponin I 0.000 (0.000-0.056) ng/mL NT-Pro-B Natriuret Pep 322 H (0-125) pg/mL Result Diagrams: 09/07/20 07:54 09/07/20 07:54 Maxi Results Last 24 hrs: Microbiology 09/05/20 19:52 Urine Culture - Final Urine, Clean Catch NO GROWTH AFTER 2 DAYS 09/06/20 15:40 Stool Occult Blood (MAXI) - Final Stool / Feces NEGATIVE OCCULT BLOOD REFERENCE RANGE: NEGATIVE Sepsis Event Note - Evaluation Sepsis Screening Result: No Definite Risk - Focused Exam Vital Signs: Vital Signs Temp Pulse Resp BP Pulse Ox 09/07/20 08:00 36.9 C 84 20 136/80 94 L 09/07/20 00:00 36.7 C 75 20 133/75 96 - Problem List Review Problem List Initiated/Reviewed/Updated: Yes - My Orders Last 24 Hours: My Active Orders 09/07/20 10:45 Furosemide [Lasix] 40 mg IVPUSH DAILY - Assessment Assessment:: As above - Plan Plan:: As above. Extensive precautions were given to the patient, who is in agreement with the treatment plan. The patient will require about 4-7 days of inpatient/acute care secondary to multiple health problems as above. Extended hospital stay required secondary to sepsis, etc. as above. Alverto marrero physician assumes care in the a.m.
[2020-09-07] MEDS: Magnesium Oxide 400 MG Tab PO SCH ×2 (12:21→17:58)
[2020-09-07] MEDS: ARIPiprazole 10 MG Tab PO SCH (19:31)
[2020-09-07] MEDS: Tamsulosin 0.4 MG Cap.ER PO SCH (19:31)
[2020-09-08] MEDS: Albuterol/Ipratropium 3.0-0.5 MG/3 ML Neb Soln NEB SCH ×4 (02:13→19:45)
[2020-09-08] MEDS: cefTRIAXone 1 GM in Sodium Chloride 0.9% 100 ML IV SCH ×2 (08:54→19:46)
[2020-09-08] MEDS: [UNRECOGNIZED DRUG - OTHER] NASBOTH SCH ×2 (08:54→17:14)
[2020-09-08] MEDS: IPRATROPIUM NASBOTH SCH ×2 (08:54→17:14)
[2020-09-08] MEDS: Ascorbic Acid 500 MG Tab PO SCH (08:55)
[2020-09-08] MEDS: Furosemide 40 MG/4 ML VIAL IVPUSH SCH (08:55)
[2020-09-08] MEDS: Enoxaparin 40 MG/0.4 ML Syringe SUBCUT SCH (08:56)
[2020-09-08] MEDS: Sodium Chloride 0.9% 10 ML Syringe FLUSH SCH ×2 (08:56→19:47)
[2020-09-08] MEDS: Sertraline 50 MG Tab PO SCH (08:57)
[2020-09-08] MEDS: Pantoprazole 40 MG Tab.CR PO SCH (08:57)
[2020-09-08] MEDS: Dextromethorphan/guaiFENesin 600-30 MG Tab.ER PO SCH ×2 (08:57→17:15)
[2020-09-08] MEDS: Gabapentin 300 MG Cap PO SCH ×2 (08:57→17:15)
[2020-09-08] MEDS: Budesonide 0.5 MG/2 ML Neb Susp NEB SCH ×2 (08:57→19:45)
[2020-09-08] MEDS: Potassium Chloride 20 MEQ Tab.ER PO SCH (08:57)
[2020-09-08] MEDS: Ferrous Sulfate 325 MG Tab PO SCH (09:27)
[2020-09-08] MEDS: Magnesium Oxide 400 MG Tab PO SCH ×2 (11:59→17:15)
--- NOTE | 2020-09-08 12:22 | PCM.PN ---
- General Info Date of Service: 09/08/20 Admission Dx/Problem (Free Text): Pt. did well overnight. Blood cultures were positive for MSSA. Pt. was initially on rocephin and vancomycin. Vancomycin was discontinued yesterday. Pt. remains on the IV rocephin. Ruiz catheter was pulled yesterday. He has been up ambulating and had a shower yesterday. Pt. denies any chest pain, shortness of breath, lightheadedness, abdominal pain, nausea, or vomiting. No labs were drawn this AM, as his lactic acid has been negative and he has been afebrile over the past 24 hours. Functional Status: Reports: Pain Controlled, Tolerating Diet, Ambulating, Urinating - Review of Systems General: Reports: No Symptoms HEENT: Reports: No Symptoms Pulmonary: Reports: No Symptoms Cardiovascular: Reports: No Symptoms Gastrointestinal: Reports: No Symptoms Genitourinary: Reports: No Symptoms Musculoskeletal: Reports: No Symptoms Skin: Reports: No Symptoms Neurological: Reports: No Symptoms Psychiatric: Reports: No Symptoms - Patient Data Vitals - Most Recent: Last Vital Signs Temp 36.8 C 09/08/20 08:27 Pulse 93 09/08/20 08:27 Resp 20 09/08/20 08:27 BP 127/73 09/08/20 08:27 Pulse Ox 93 L 09/08/20 08:27 Weight - Most Recent: 127.369 kg I&O - Last 24 Hours: Intake & Output 09/07/20 09/08/20 09/08/20 22:59 06:59 14:59 Intake Total 440 Output Total 150 1000 Balance 290 -1000 Maxi Results Last 24 Hours: Microbiology 09/05/20 19:52 Urine Culture - Final Urine, Clean Catch NO GROWTH AFTER 2 DAYS Med Orders - Current: Current Medications Acetaminophen (Acetaminophen 325 Mg Tab) 650 mg PO Q4H PRN PRN Reason: Pain/Fever Albuterol (Albuterol 0.083% 2.5 Mg/3 Ml Neb Soln) 2.5 mg NEB Q2H PRN PRN Reason: Dyspnea Albuterol/Ipratropium (Albuterol/Ipratropium 3.0-0.5 Mg/3 Ml Neb Soln) 3 ml NEB Q4HRRT PRN PRN Reason: Dyspnea Albuterol/Ipratropium (Albuterol/Ipratropium 3.0-0.5 Mg/3 Ml Neb Soln) 3 ml NEB Q6HRRT [facility] Last Admin: 09/08/20 08:57 Dose: 3 ml Documented by: Aripiprazole (Aripiprazole 10 Mg Tab) 5 mg PO BEDTIME [facility] Last Admin: 09/07/20 19:31 Dose: 5 mg Documented by: Ascorbic Acid (Ascorbic Acid 500 Mg Tab) 500 mg PO DAILY [facility] Last Admin: 09/08/20 08:55 Dose: 500 mg Documented by: Budesonide (Budesonide 0.5 Mg/2 Ml Neb Susp) 0.5 mg NEB BIDRT [facility] Last Admin: 09/08/20 08:57 Dose: 0.5 mg Documented by: Enoxaparin Sodium (Enoxaparin 40 Mg/0.4 Ml Syringe) 40 mg SUBCUT DAILY [facility] Last Admin: 09/08/20 08:56 Dose: 40 mg Documented by: Ferrous Sulfate (Ferrous Sulfate 325 Mg Tab) 325 mg PO Q2D [facility] Last Admin: 09/08/20 09:27 Dose: 325 mg Documented by: Furosemide (Furosemide 40 Mg/4 Ml Vial) 40 mg IVPUSH DAILY [facility] Last Admin: 09/08/20 08:55 Dose: 40 mg Documented by: Gabapentin (Gabapentin 300 Mg Cap) 300 mg PO BID [facility] Last Admin: 09/08/20 08:57 Dose: 300 mg Documented by: Guaifenesin/Dextromethorphan (Dextromethorphan/Guaifenesin 600-30 Mg Tab.Er) 1 tab PO BID [facility] Last Admin: 09/08/20 08:57 Dose: 1 tab Documented by: Ceftriaxone Sodium 1 gm/ (Sodium Chloride) 100 mls @ 200 mls/hr IV Q12H [facility] Last Admin: 09/08/20 08:54 Dose: 200 mls/hr Documented by: Magnesium Oxide (Magnesium Oxide 400 Mg Tab) 400 mg PO BID@1200,1800 [facility] Last Admin: 09/08/20 11:59 Dose: 400 mg Documented by: Non-Formulary Medication (Acetylcysteine [Nac]) 1 cap PO BID [facility] Ipratropium [ Atrovent 0.03% Nasal [place]]Ptown 2 spray NASBOTH BID [facility] Last Admin: 09/08/20 08:54 Dose: 2 spray Documented by: Pantoprazole Sodium (Pantoprazole 40 Mg Tab.Cr) 40 mg PO ACBREAKFAST [facility] Last Admin: 09/08/20 08:57 Dose: 40 mg Documented by: Potassium Chloride (Potassium Chloride 20 Meq Tab.Er) 20 meq PO DAILY [facility] Last Admin: 09/08/20 08:57 Dose: 20 meq Documented by: Sertraline HCl (Sertraline 50 Mg Tab) 200 mg PO DAILY [facility] Last Admin: 09/08/20 08:57 Dose: 200 mg Documented by: Sodium Chloride (Sodium Chloride 0.9% 10 Ml Syringe) 10 ml FLUSH Q12H [facility] Last Admin: 09/08/20 08:56 Dose: 10 ml Documented by: Sodium Chloride (Sodium Chloride 0.9% 10 Ml Syringe) 10 ml FLUSH ASDIRECTED PRN PRN Reason: Keep Vein Open Last Admin: 09/06/20 12:24 Dose: 10 ml Documented by: Tamsulosin HCl (Tamsulosin 0.4 Mg Cap.Er) 0.4 mg PO BEDTIME [facility] Last Admin: 09/07/20 19:31 Dose: 0.4 mg Documented by: Temazepam (Temazepam 15 Mg Cap) 15 mg PO BEDTIME PRN PRN Reason: Insomnia Last Admin: 09/06/20 04:04 Dose: 15 mg Documented by: Discontinued Medications Budesonide (Budesonide 0.5 Mg/2 Ml Neb Susp) 0.5 mg NEB BIDRT [facility] Furosemide (Furosemide 40 Mg/4 Ml Vial) 40 mg IVPUSH Q8H [facility] Last Admin: 09/07/20 06:24 Dose: 40 mg Documented by: Vancomycin HCl 1 gm/ Dextrose/ (Water) 250 mls @ 165 mls/hr IV Q24H [facility] Last Admin: 09/05/20 22:33 Dose: 165 mls/hr Documented by: Vancomycin HCl 1.5 gm/ Premix 300 mls @ 200 mls/hr IV Q24H [facility] Last Admin: 09/06/20 21:23 Dose: 200 mls/hr Documented by: Potassium Chloride (Potassium Chloride 20 Meq Tab.Er) 20 meq PO TID [facility] Last Admin: 09/07/20 12:21 Dose: 20 meq Documented by: Vancomycin HCl (Pharmacy To Dose - Vancomycin) 1 dose .XX ASDIRECTED [facility] - Exam Urinary Catheter Total Time: 1Days 12Hours General: Alert, Oriented Lungs: Clear to Auscultation, Normal Respiratory Effort Cardiovascular: Regular Rate, Regular Rhythm GI/Abdominal Exam: Soft, Non-Tender, No Distention, No Mass (Male) Exam: No Hernia Extremities: Normal Inspection, Normal Range of Motion, Non-Tender, No Pedal Edema, Normal Capillary Refill Skin: Warm, Dry, Intact Neurological: No New Focal Deficit Psy/Mental Status: Alert, Normal Affect, Normal Mood - Patient Data Result Diagrams: 09/07/20 07:54 09/07/20 07:54 Maxi Results Last 24 hrs: Microbiology 09/05/20 19:52 Urine Culture - Final Urine, Clean Catch NO GROWTH AFTER 2 DAYS Sepsis Event Note - Evaluation Sepsis Screening Result: No Definite Risk - Focused Exam Vital Signs: Vital Signs Temp Pulse Resp BP Pulse Ox 09/08/20 08:27 36.8 C 93 20 127/73 93 L - Problem List Review Problem List Initiated/Reviewed/Updated: Yes - My Orders Last 24 Hours: My Active Orders 09/08/20 08:00 Furosemide [Lasix] 40 mg IVPUSH DAILY Potassium Chloride [Klor-Con M20] 20 meq PO DAILY 09/09/20 05:11 BMP [BASIC METABOLIC PANEL,BMP] [CHEM] AM CBC WITH AUTO DIFF [HEME] AM - Assessment Assessment:: As above - Plan Plan:: As above. Extensive precautions were given to the patient, who is in agreement with the treatment plan. The patient will require about 4-7 days of inpatient/acute care secondary to multiple health problems as above. Extended hospital stay required secondary to sepsis, etc. as above. Alverto marrero physician assumes care in the a.m. 09/08/20 Continue IV rocephin. Pt. magnesium was low and he will be given mag sulfate 2 gm IV this afternoon. Encouraged continued ambulation. Pt. seems eager to be discharged. Will repeat CBC, BMP tomorrow. he will likely be discharged tomorrow.
[2020-09-08] MEDS ORDERED: Magnesium Sulfate/Water 2 GM in Premix Bag 1 BAG IV ONE (12:23)
[2020-09-08] MEDS: Sodium Chloride 0.9% 10 ML Syringe FLUSH PRN (14:12)
[2020-09-08] MEDS: ARIPiprazole 10 MG Tab PO SCH (19:45)
[2020-09-08] MEDS: Tamsulosin 0.4 MG Cap.ER PO SCH (19:46)
[2020-09-09] MEDS: Albuterol/Ipratropium 3.0-0.5 MG/3 ML Neb Soln NEB SCH ×2 (01:31→08:07)
[2020-09-09 07:57] LABS: CHLORIDE,CL 110 mmol/L (98-107); SODIUM,NA 147 mmol/L (136-145)
[2020-09-09] MEDS: Pantoprazole 40 MG Tab.CR PO SCH (08:06)
[2020-09-09] MEDS: Budesonide 0.5 MG/2 ML Neb Susp NEB SCH (08:07)
[2020-09-09] MEDS: Gabapentin 300 MG Cap PO SCH (08:07)
[2020-09-09] MEDS: [UNRECOGNIZED DRUG - OTHER] NASBOTH SCH (08:07)
[2020-09-09] MEDS: Ascorbic Acid 500 MG Tab PO SCH (08:07)
[2020-09-09] MEDS: Furosemide 40 MG/4 ML VIAL IVPUSH SCH (08:07)
[2020-09-09] MEDS: Dextromethorphan/guaiFENesin 600-30 MG Tab.ER PO SCH (08:07)
[2020-09-09] MEDS: IPRATROPIUM NASBOTH SCH (08:07)
[2020-09-09] MEDS: Sertraline 50 MG Tab PO SCH (08:07)
[2020-09-09] MEDS: Enoxaparin 40 MG/0.4 ML Syringe SUBCUT SCH (08:07)
[2020-09-09] MEDS: Potassium Chloride 20 MEQ Tab.ER PO SCH (08:07)
[2020-09-09] MEDS: cefTRIAXone 1 GM in Sodium Chloride 0.9% 100 ML IV SCH (08:08)
[2020-09-09] MEDS: Sodium Chloride 0.9% 10 ML Syringe FLUSH SCH (08:08)
[2020-09-09 08:21] VITALS: BP 130/79; PULSE 72
--- NOTE | 2020-09-09 11:12 | PCM.DCSUM1 ---
Discharge Summary - Hospital Course Free Text/Narrative:: Pt. was admitted 09/05 after having a blood culture that was draw on a previous visit come back positive. The culture grew MSSA. Pt. had perviously been on vanco and rocephin. The vancomycin was stooled and rocephin was continued. Pt. has been on IV antibiotics for a total of 4 days. Pt. reports that he is feeling much better. He states that he is no more short of breath than normal. he has been up ambulating with assistance. He has been afebrile over the past several days. Lactic acid has remained normal. He has no white count this AM. Kidney function and electrolytes were within normal limits this AM. Diagnosis: Stroke: No Modified Orestes Scale: No Symptoms at All Modified Maricao Scale Score: 0 - Discharge Data Discharge Date: 09/09/20 Discharge Disposition: Home, Self-Care 01 Condition: Good - Referral to Home Health Primary Care Physician: PCP None - Discharge Diagnosis/Problem(s) (1) Anemia SNOMED Code(s): 992384169 ICD Code: D64.9 - ANEMIA, UNSPECIFIED Status: Acute Priority: High Current Visit: Yes Problem Details: As above. Qualifiers: Anemia type: other cause Other causes of anemia: other cause, not classified Qualified Code(s): D64.89 - Other specified anemias (2) Sepsis SNOMED Code(s): 48314900 ICD Code: A41.9 - SEPSIS, UNSPECIFIED ORGANISM Status: Acute Priority: High Current Visit: Yes Onset Date: ~09/03/20 Problem Details: Culture was positive for susceptible gram positive cocci. Vancomycin was discontinued on 09/07. He has been on IV rocephin for a total of 5 days. Pt. will be discharged on oral Augmentin. Positive gram positive cocci as above with ID still pending. Sepsis protocol initiated including sepsis order set. Patient received only 1 dose of IV Rocephin during recent hospitalization and was not discharged on any antibi otics. Reinitiate high-dose IV Rocephin with additional IV vancomycin. Repeat UA was collected at time of Ruiz cath placement for accurate I's and O's with culture and sensitivity still pending. Attempt to obtain sputum KYARA. Lactic acid level is normal. Qualifiers: Sepsis acute organ dysfunction status: without acute organ dysfunction (3) CHF (congestive heart failure) SNOMED Code(s): 65311845 ICD Code: I50.9 - HEART FAILURE, UNSPECIFIED Status: Chronic Priority: High Current Visit: Yes Problem Details: Significant CHF by chest x-ray with elevated BNP, however no chest pain or other anginal type symptoms. Troponin I is normal. Repeat cardiac enzymes in the a.m. Continue aggressive IV Lasix therapy. Note concomitant probable pneumonia despite absence of fever, leukocytosis, etc. Qualifiers: Heart failure type: combined systolic and diastolic Heart failure chronicity: acute on chronic Qualified Code(s): I50.43 - Acute on chronic combined systolic (congestive) and diastolic (congestive) heart failure (4) COPD (chronic obstructive pulmonary disease) SNOMED Code(s): 72113147 ICD Code: J44.9 - CHRONIC OBSTRUCTIVE PULMONARY DISEASE, UNSPECIFIED Status: Chronic Priority: Medium Current Visit: Yes Problem Details: As above. Note chronic O2 therapy required. Continue nebulizer treatments. Qualifiers: COPD type: emphysema Emphysema type: panlobular Qualified Code(s): J43.1 - Panlobular emphysema - Patient Summary/Data Consults: Consultations 09/06/20 11:40 OT Evaluation and Treatment [CONS] Routine PT Evaluation and Treatment [CONS] Routine - Discharge Plan Prescriptions/Med Rec: Amoxicillin/Potassium Clav [Augmentin 875-125 Tablet] 1 each PO BID 10 Days #20 tablet Home Medications: Home Meds Albuterol [Ventolin HFA] 1 puff INH Q4H PRN 02/26/15 [History] Furosemide 20 mg PO Q2D 02/26/15 [History] Lutein/Minerals/Vit A,C & E [I-Nurys] 1 each PO BEDTIME 02/26/15 [History] Multivitamin [Multi-Vitamin Daily] 1 tab PO QPM 02/26/15 [History] Pantoprazole [ProTONIX] 40 mg PO DAILY 02/26/15 [History] Potassium Chloride [Klor-Con 10] 10 meq PO BIDMEALS@1200,1800 02/26/15 [History] Sertraline [Zoloft] 200 mg PO DAILY 02/26/15 [History] ARIPiprazole [Abilify] 5 mg PO BEDTIME 04/16/18 [History] Tamsulosin [Flomax] 0.4 mg PO BEDTIME 04/16/18 [History] Albuterol/Ipratropium [DuoNeb 3.0-0.5 MG/3 ML] 3 ml INH QID 07/29/18 [History] Magnesium Oxide 400 mg PO BID@1200,1800 07/29/18 [History] Acetylcysteine [Nac] 1 cap PO BID 03/28/19 [History] Ferrous Sulfate 1 tab PO Q2D 03/28/19 [History] Gabapentin [Neurontin] 300 mg PO BID 03/28/19 [History] Acetaminophen [Tylenol] 650 mg PO Q6H PRN 07/24/19 [History] Ipratropium [Atrovent 0.03% Nasal [place]] 2 spray NASBOTH BID 07/24/19 [History] Ascorbate Calcium [Vitamin C] 500 mg PO DAILY 09/03/20 [History] Budesonide [Pulmicort] 1 vial INH BID 09/03/20 [History] Amoxicillin/Potassium Clav [Augmentin 875-125 Tablet] 1 each PO BID 10 Days #20 tablet 09/09/20 [Rx] - Discharge Summary/Plan Comment DC Time >30 min.: Yes Discharge Summary/Plan Comment: Home to rest. Augmentin 875mg twice daily for 10 days. Recheck in clinic in 10-14 days. Continue all other medications. - General Info Functional Status: Reports: Pain Controlled - Review of Systems General: Reports: No Symptoms HEENT: Reports: No Symptoms Pulmonary: Reports: Shortness of Breath (States is at baseline.) Cardiovascular: Reports: No Symptoms Gastrointestinal: Reports: No Symptoms Genitourinary: Reports: No Symptoms Musculoskeletal: Reports: No Symptoms Skin: Reports: No Symptoms Neurological: Reports: No Symptoms Psychiatric: Reports: No Symptoms - Patient Data Vitals - Most Recent: Last Vital Signs Temp 36.8 C 09/09/20 08:00 Pulse 72 09/09/20 08:00 Resp 22 H 09/09/20 08:00 BP 130/79 09/09/20 08:00 Pulse Ox 95 09/09/20 08:00 Weight - Most Recent: 129.092 kg I&O - Last 24 hours: Intake & Output 09/08/20 09/09/20 09/09/20 22:59 06:59 14:59 Intake Total 240 120 Output Total 300 600 Balance -60 -480 Lab Results - Last 24 hrs: Laboratory Results - last 24 hr 09/09/20 09/09/20 Range/Units 07:35 07:35 WBC 3.9 L (4.0-10.2) K/uL RBC 3.25 L (4.33-5.41) M/uL Hgb 9.3 L (13.1-16.8) g/dL Hct 29.4 L (39.0-49.0) % MCV 90.5 (84.0-98.0) fL MCH 28.6 (28.2-33.3) pg MCHC 31.6 L (31.7-36.0) g/dL RDW 15.8 H (11.2-14.1) % Plt Count 113 L (150-350) K/uL Neut % (Auto) 69.9 (45.0-80.0) % Lymph % (Auto) 14.4 (10.0-50.0) % [place]son % (Auto) 9.5 (2.0-14.0) % Eos % (Auto) 5.7 H (0.0-5.0) % Baso % (Auto) 0.5 (0.0-2.0) % Neut # (Auto) 2.71 (1.40-7.00) K/uL Lymph # (Auto) 0.56 (0.50-3.50) K/uL [place]son # (Auto) 0.37 (0.00-1.00) K/uL Eos # (Auto) 0.22 (0.00-0.50) K/uL Baso # (Auto) 0.02 (0.00-0.20) K/uL Sodium 147 H (136-145) mmol/L Potassium 4.5 (3.5-5.1) mmol/L Chloride 110 H (98-107) mmol/L Carbon Dioxide 29.5 (21.0-32.0) mmol/L BUN 26 H (7-18) mg/dL Creatinine 1.04 (0.51-1.17) mg/dL Est Cr Clr Drug Dosing TNP Estimated GFR (MDRD) > 60 mL/min Glucose 109 H (70-99) mg/dL Calcium 8.3 L (8.5-10.1) mg/dL Med Orders - Current: Current Medications Acetaminophen (Acetaminophen 325 Mg Tab) 650 mg PO Q4H PRN PRN Reason: Pain/Fever Albuterol (Albuterol 0.083% 2.5 Mg/3 Ml Neb Soln) 2.5 mg NEB Q2H PRN PRN Reason: Dyspnea Albuterol/Ipratropium (Albuterol/Ipratropium 3.0-0.5 Mg/3 Ml Neb Soln) 3 ml NEB Q4HRRT PRN PRN Reason: Dyspnea Albuterol/Ipratropium (Albuterol/Ipratropium 3.0-0.5 Mg/3 Ml Neb Soln) 3 ml NEB Q6HRRT [facility] Last Admin: 09/09/20 08:07 Dose: 3 ml Documented by: Aripiprazole (Aripiprazole 10 Mg Tab) 5 mg PO BEDTIME [facility] Last Admin: 09/08/20 19:45 Dose: 5 mg Documented by: Ascorbic Acid (Ascorbic Acid 500 Mg Tab) 500 mg PO DAILY [facility] Last Admin: 09/09/20 08:07 Dose: 500 mg Documented by: Budesonide (Budesonide 0.5 Mg/2 Ml Neb Susp) 0.5 mg NEB BIDRT [facility] Last Admin: 09/09/20 08:07 Dose: 0.5 mg Documented by: Enoxaparin Sodium (Enoxaparin 40 Mg/0.4 Ml Syringe) 40 mg SUBCUT DAILY [facility] Last Admin: 09/09/20 08:07 Dose: 40 mg Documented by: Ferrous Sulfate (Ferrous Sulfate 325 Mg Tab) 325 mg PO Q2D [facility] Last Admin: 09/08/20 09:27 Dose: 325 mg Documented by: Furosemide (Furosemide 40 Mg/4 Ml Vial) 40 mg IVPUSH DAILY [facility] Last Admin: 09/09/20 08:07 Dose: 40 mg Documented by: Gabapentin (Gabapentin 300 Mg Cap) 300 mg PO BID [facility] Last Admin: 09/09/20 08:07 Dose: 300 mg Documented by: Guaifenesin/Dextromethorphan (Dextromethorphan/Guaifenesin 600-30 Mg Tab.Er) 1 tab PO BID [facility] Last Admin: 09/09/20 08:07 Dose: 1 tab Documented by: Ceftriaxone Sodium 1 gm/ (Sodium Chloride) 100 mls @ 200 mls/hr IV Q12H [facility] Last Admin: 09/09/20 08:08 Dose: 200 mls/hr Documented by: Magnesium Oxide (Magnesium Oxide 400 Mg Tab) 400 mg PO BID@1200,1800 [facility] Last Admin: 09/08/20 17:15 Dose: 400 mg Documented by: Non-Formulary Medication (Acetylcysteine [Nac]) 1 cap PO BID [facility] Ipratropium [ Atrovent 0.03% Nasal [place]]Ptown 2 spray NASBOTH BID [facility] Last Admin: 09/09/20 08:07 Dose: 2 spray Documented by: Pantoprazole Sodium (Pantoprazole 40 Mg Tab.Cr) 40 mg PO ACBREAKFAST [facility] Last Admin: 09/09/20 08:06 Dose: 40 mg Documented by: Potassium Chloride (Potassium Chloride 20 Meq Tab.Er) 20 meq PO DAILY [facility] Last Admin: 09/09/20 08:07 Dose: 20 meq Documented by: Sertraline HCl (Sertraline 50 Mg Tab) 200 mg PO DAILY [facility] Last Admin: 09/09/20 08:07 Dose: 200 mg Documented by: Sodium Chloride (Sodium Chloride 0.9% 10 Ml Syringe) 10 ml FLUSH Q12H [facility] Last Admin: 09/09/20 08:08 Dose: 10 ml Documented by: Sodium Chloride (Sodium Chloride 0.9% 10 Ml Syringe) 10 ml FLUSH ASDIRECTED PRN PRN Reason: Keep Vein Open Last Admin: 09/08/20 14:12 Dose: 10 ml Documented by: Tamsulosin HCl (Tamsulosin 0.4 Mg Cap.Er) 0.4 mg PO BEDTIME [facility] Last Admin: 09/08/20 19:46 Dose: 0.4 mg Documented by: Temazepam (Temazepam 15 Mg Cap) 15 mg PO BEDTIME PRN PRN Reason: Insomnia Last Admin: 09/06/20 04:04 Dose: 15 mg Documented by: Discontinued Medications Budesonide (Budesonide 0.5 Mg/2 Ml Neb Susp) 0.5 mg NEB BIDRT [facility] Furosemide (Furosemide 40 Mg/4 Ml Vial) 40 mg IVPUSH Q8H [facility] Last Admin: 09/07/20 06:24 Dose: 40 mg Documented by: Vancomycin HCl 1 gm/ Dextrose/ (Water) 250 mls @ 165 mls/hr IV Q24H [facility] Last Admin: 09/05/20 22:33 Dose: 165 mls/hr Documented by: Vancomycin HCl 1.5 gm/ Premix 300 mls @ 200 mls/hr IV Q24H [facility] Last Admin: 09/06/20 21:23 Dose: 200 mls/hr Documented by: Magnesium Sulfate 2 gm/ Premix 50 mls @ 25 mls/hr IV ONETIME ONE Stop: 09/08/20 14:22 Last Admin: 09/08/20 14:11 Dose: 25 mls/hr Documented by: Potassium Chloride (Potassium Chloride 20 Meq Tab.Er) 20 meq PO TID [facility] Last Admin: 09/07/20 12:21 Dose: 20 meq Documented by: Vancomycin HCl (Pharmacy To Dose - Vancomycin) 1 dose .XX ASDIRECTED [facility] - Exam General: Reports: Alert, Oriented Lungs: Reports: Normal Respiratory Effort, Wheezing Cardiovascular: Reports: Regular Rate, Regular Rhythm GI/Abdominal Exam: Normal Bowel Sounds, Soft, Non-Tender, No Distention, No Mass (Male) Exam: Deferred Rectal (Males) Exam: Deferred Back Exam: Reports: Normal Inspection, Full Range of Motion Extremities: Normal Inspection, Normal Range of Motion, Non-Tender, No Pedal Edema, Normal Capillary Refill Skin: Reports: Warm, Dry, Intact Neurological: Reports: No New Focal Deficit Psy/Mental Status: Reports: Alert, Normal Affect, Normal Mood
== END 2020-09-09 12:29 | disposition home health service (06) | DRG 871 ==
LOC: LL.MS 19:00
PROVIDERS: ADMIT Family Medicine; ATTEND Family Medicine
DX: A41.01 Sepsis due to Methicillin susceptible Staphylococcus aureus (principal); I50.43 Acute on chronic combined systolic (congestive) and diastolic (congestive) heart failure; I13.0 Hypertensive heart and chronic kidney disease with heart failure and stage 1 through stage 4 chronic kidney disease, or unspecified chronic kidney disease; J43.1 Panlobular emphysema; Z20.822 Contact with and (suspected) exposure to COVID-19; I25.10 Atherosclerotic heart disease of native coronary artery without angina pectoris; Z87.01 Personal history of pneumonia (recurrent); Z86.010 Personal history of colon polyps; N40.0 Benign prostatic hyperplasia without lower urinary tract symptoms; N18.9 Chronic kidney disease, unspecified; F41.9 Anxiety disorder, unspecified; F32.9 Major depressive disorder, single episode, unspecified; D50.9 Iron deficiency anemia, unspecified; Z98.42 Cataract extraction status, left eye; Z98.41 Cataract extraction status, right eye; Z98.890 Other specified postprocedural states; Z90.89 Acquired absence of other organs; K21.9 Gastro-esophageal reflux disease without esophagitis; M89.49 Other hypertrophic osteoarthropathy, multiple sites
CPT/HCPCS: 36415; 51702; 71045; 71046; 80048; 80053; 80307; 81001; 82272; 82607; 82728; 83540; 83550; 83605; 83735; 83880; 84484; 84550; 85025; 85610; 87086; 93005; 94640; 97162-GP; 97530-GP; A9270-GY; J0696; J1650; J1940; J3370; J3475; J7060; J7620-GY; U0002

== ENCOUNTER 2020-12-21 23:49 | Inpatient (IN) | payer MEDICARE, OTHER ==
[2020-12-22] MEDS ORDERED: Albuterol/Ipratropium 3.0-0.5 MG/3 ML Neb Soln NEB ONE
[2020-12-22] MEDS ORDERED: methylPREDNISolone Sodium Succinate 125 MG/2 ML SDV IV ONE
[2020-12-22] MEDS ORDERED: cefTRIAXone 2 GM in Sodium Chloride 0.9% 100 ML IV ONE (00:01)
[2020-12-22] MEDS ORDERED: Albuterol 0.083% 2.5 MG/3 ML Neb Soln NEB ONE (00:13)
[2020-12-22] MEDS: Sodium Chloride 0.9% 10 ML Syringe FLUSH PRN ×2 (00:16→07:18)
[2020-12-22 00:57] LABS: ANION GAP 14.1 meq/L (7-15)
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
[2020-12-22] MEDS: Sodium Chloride 0.9% 1,000 ML IV SCH ×3 (02:06→21:45)
[2020-12-22] MEDS ORDERED: Acetaminophen 500 MG Tab PO ONE (02:07)
[2020-12-22] MEDS: Doxycycline Monohydrate 100 MG Cap PO SCH ×3 (02:08→17:22)
[2020-12-22] MEDS ORDERED: Acetaminophen 325 MG Tab PO PRN (02:36)
[2020-12-22] MEDS ORDERED: Enoxaparin 40 MG/0.4 ML Syringe SUBCUT SCH (02:45)
[2020-12-22] MEDS ORDERED: methylPREDNISolone Sodium Succinate 125 MG/2 ML SDV IVPUSH SCH (02:45)
[2020-12-22] MEDS: Albuterol/Ipratropium 3.0-0.5 MG/3 ML Neb Soln NEB SCH ×6 (04:14→23:55)
[2020-12-22] MEDS: Budesonide 0.5 MG/2 ML Neb Susp INH SCH ×2 (07:15→17:23)
[2020-12-22] MEDS: Sertraline 50 MG Tab PO SCH (07:15)
[2020-12-22] MEDS: Gabapentin 300 MG Cap PO SCH ×2 (07:16→17:23)
[2020-12-22] MEDS: Pantoprazole 40 MG Tab.CR PO SCH (07:17)
[2020-12-22] MEDS: methylPREDNISolone Sodium Succinate 125 MG/2 ML SDV IVPUSH SCH ×3 (07:17→19:17)
[2020-12-22] MEDS: Furosemide 20 MG Tab PO SCH (07:17)
[2020-12-22] MEDS: Ascorbic Acid 500 MG Tab PO SCH (08:27)
[2020-12-22] MEDS: Ferrous Sulfate 325 MG Tab PO SCH (08:27)
[2020-12-22] MEDS: Magnesium Oxide 400 MG Tab PO SCH ×2 (11:04→17:22)
[2020-12-22] MEDS: Potassium Chloride 10 MEQ Tab.ER PO SCH ×2 (11:04→17:23)
[2020-12-22] MEDS ORDERED: Calcium Carbonate 500 MG Tab.Chew PO PRN (11:12)
--- NOTE | 2020-12-22 11:23 | PCM.PN ---
- General Info Date of Service: 12/22/20 Admission Dx/Problem (Free Text): 1)Community Acquired Pneumonia 2)COPD Exacerbation 3)Lactic Acidosis 4)Acute on Chronic Respiratory Failure Subjective Update: Nj is a a 75 y/o male, seen on AM rounds. Seems to be doing better after IV abx and steroids started. He has no complaints and reports feeling better, othe than some heartburn. - Review of Systems General: Reports: No Symptoms HEENT: Reports: No Symptoms Pulmonary: Reports: Shortness of Breath, Cough Cardiovascular: Reports: Dyspnea on Exertion Gastrointestinal: Reports: No Symptoms Genitourinary: Reports: No Symptoms Musculoskeletal: Reports: No Symptoms Skin: Reports: No Symptoms Neurological: Reports: No Symptoms Psychiatric: Reports: No Symptoms - Patient Data Vitals - Most Recent: Last Vital Signs Temp 36.8 C 12/22/20 11:06 Pulse 77 12/22/20 11:06 Resp 20 12/22/20 11:06 BP 153/87 H 12/22/20 11:06 Pulse Ox 92 L 12/22/20 11:06 Weight - Most Recent: 106.141 kg I&O - Last 24 Hours: Intake & Output 12/21/20 12/22/20 12/22/20 22:59 06:59 14:59 Output Total 700 Balance -700 Lab Results Last 24 Hours: Laboratory Results - last 24 hr 12/22/20 12/22/20 12/22/20 Range/Units 00:08 00:08 00:08 WBC 6.4 (4.0-10.2) K/uL RBC 4.19 L (4.33-5.41) M/uL Hgb 11.7 L D (13.1-16.8) g/dL Hct 36.2 L (39.0-49.0) % MCV 86.4 D (84.0-98.0) fL MCH 27.9 L (28.2-33.3) pg MCHC 32.3 (31.7-36.0) g/dL RDW 16.2 H (11.2-14.1) % Plt Count 93 L (150-350) K/uL Neut % (Auto) 81.2 H (45.0-80.0) % Lymph % (Auto) 8.9 L (10.0-50.0) % [place] % (Auto) 7.1 (2.0-14.0) % Eos % (Auto) 2.5 (0.0-5.0) % Baso % (Auto) 0.3 (0.0-2.0) % Neut # (Auto) 5.18 (1.40-7.00) K/uL Lymph # (Auto) 0.57 (0.50-3.50) K/uL [place] # (Auto) 0.45 (0.00-1.00) K/uL Eos # (Auto) 0.16 (0.00-0.50) K/uL Baso # (Auto) 0.02 (0.00-0.20) K/uL PT 11.0 (9.5-12.0) SEC INR 1.1 APTT 27.9 (24.5-32.8) SEC POC VBG pH (7.31-7.41) POC VBG pCO2 (41-51) mmHg POC VBG pO2 mmHg POC VBG HCO3 (23-28) mmol/L POC Venous O2 Sat % VBG Base Excess (-(2)-3) mmol/L Sodium (136-145) mmol/L Potassium (3.5-5.1) mmol/L Chloride (98-107) mmol/L Carbon Dioxide (21.0-32.0) mmol/L POC Venous Total CO2 mmol/L Anion Gap (7-15) meq/L BUN (7-18) mg/dL Creatinine (0.51-1.17) mg/dL Est Cr Clr Drug Dosing mL/min Estimated GFR (MDRD) mL/min Glucose (70-99) mg/dL Lactic Acid (0.4-2.0) mmol/L Calcium (8.5-10.1) mg/dL Phosphorus (2.6-4.7) mg/dL Magnesium (1.8-2.4) mg/dL Total Bilirubin (0.2-1.0) mg/dL AST (15-37) U/L ALT (12-78) U/L Alkaline Phosphatase (46-116) IU/L Troponin I High Sens (<=76) ng/L C-Reactive Protein (<=0.9) mg/dL NT-Pro-B Natriuret Pep (0-125) pg/mL Total Protein (6.4-8.2) g/dL Albumin (3.4-5.0) g/dL Specimen Type Urine Color Urine Appearance Urine pH (5.0-9.0) Ur Specific [place] (1.005-1.030) Urine Protein (NEGATIVE) mg/dL Urine Glucose (UA) (NEGATIVE) mg/dL Urine Ketones (NEGATIVE) mg/dL Urine Occult Blood (NEGATIVE) Urine Nitrite (NEGATIVE) Urine Bilirubin (NEGATIVE) Urine Urobilinogen (0.2-1.0) E.U./dL Ur Leukocyte Esterase (NEGATIVE) SARS-CoV-2 RNA (CARMINE) (NEGATIVE) 12/22/20 12/22/20 12/22/20 Range/Units 00:08 00:08 00:15 WBC (4.0-10.2) K/uL RBC (4.33-5.41) M/uL Hgb (13.1-16.8) g/dL Hct (39.0-49.0) % MCV (84.0-98.0) fL MCH (28.2-33.3) pg MCHC (31.7-36.0) g/dL RDW (11.2-14.1) % Plt Count (150-350) K/uL Neut % (Auto) (45.0-80.0) % Lymph % (Auto) (10.0-50.0) % [place] % (Auto) (2.0-14.0) % Eos % (Auto) (0.0-5.0) % Baso % (Auto) (0.0-2.0) % Neut # (Auto) (1.40-7.00) K/uL Lymph # (Auto) (0.50-3.50) K/uL [place] # (Auto) (0.00-1.00) K/uL Eos # (Auto) (0.00-0.50) K/uL Baso # (Auto) (0.00-0.20) K/uL PT (9.5-12.0) SEC INR APTT (24.5-32.8) SEC POC VBG pH 7.38 (7.31-7.41) POC VBG pCO2 49 (41-51) mmHg POC VBG pO2 31 mmHg POC VBG HCO3 29 H (23-28) mmol/L POC Venous O2 Sat 58 % VBG Base Excess 3 (-(2)-3) mmol/L Sodium 146 H (136-145) mmol/L Potassium 4.3 (3.5-5.1) mmol/L Chloride 106 (98-107) mmol/L Carbon Dioxide 30.2 (21.0-32.0) mmol/L POC Venous Total CO2 30 mmol/L Anion Gap 14.1 (7-15) meq/L BUN 29 H (7-18) mg/dL Creatinine 1.33 H (0.51-1.17) mg/dL Est Cr Clr Drug Dosing 48.03 mL/min Estimated GFR (MDRD) 52 mL/min Glucose 155 H (70-99) mg/dL Lactic Acid 2.6 H (0.4-2.0) mmol/L Calcium 9.0 (8.5-10.1) mg/dL Phosphorus 3.1 (2.6-4.7) mg/dL Magnesium 1.9 (1.8-2.4) mg/dL Total Bilirubin 0.8 (0.2-1.0) mg/dL AST 28 (15-37) U/L ALT 31 (12-78) U/L Alkaline Phosphatase 187 H (46-116) IU/L Troponin I High Sens 12 (<=76) ng/L C-Reactive Protein 4.0 H (<=0.9) mg/dL NT-Pro-B Natriuret Pep 326 H (0-125) pg/mL Total Protein 7.4 (6.4-8.2) g/dL Albumin 3.2 L (3.4-5.0) g/dL Specimen Type Urine Color Urine Appearance Urine pH (5.0-9.0) Ur Specific [place] (1.005-1.030) Urine Protein (NEGATIVE) mg/dL Urine Glucose (UA) (NEGATIVE) mg/dL Urine Ketones (NEGATIVE) mg/dL Urine Occult Blood (NEGATIVE) Urine Nitrite (NEGATIVE) Urine Bilirubin (NEGATIVE) Urine Urobilinogen (0.2-1.0) E.U./dL Ur Leukocyte Esterase (NEGATIVE) SARS-CoV-2 RNA (CARMINE) (NEGATIVE) 12/22/20 12/22/20 12/22/20 Range/Units 00:50 01:29 06:08 WBC (4.0-10.2) K/uL RBC (4.33-5.41) M/uL Hgb (13.1-16.8) g/dL Hct (39.0-49.0) % MCV (84.0-98.0) fL MCH (28.2-33.3) pg MCHC (31.7-36.0) g/dL RDW (11.2-14.1) % Plt Count (150-350) K/uL Neut % (Auto) (45.0-80.0) % Lymph % (Auto) (10.0-50.0) % [place] % (Auto) (2.0-14.0) % Eos % (Auto) (0.0-5.0) % Baso % (Auto) (0.0-2.0) % Neut # (Auto) (1.40-7.00) K/uL Lymph # (Auto) (0.50-3.50) K/uL [place] # (Auto) (0.00-1.00) K/uL Eos # (Auto) (0.00-0.50) K/uL Baso # (Auto) (0.00-0.20) K/uL PT (9.5-12.0) SEC INR APTT (24.5-32.8) SEC POC VBG pH (7.31-7.41) POC VBG pCO2 (41-51) mmHg POC VBG pO2 mmHg POC VBG HCO3 (23-28) mmol/L POC Venous O2 Sat % VBG Base Excess (-(2)-3) mmol/L Sodium (136-145) mmol/L Potassium (3.5-5.1) mmol/L Chloride (98-107) mmol/L Carbon Dioxide (21.0-32.0) mmol/L POC Venous Total CO2 mmol/L Anion Gap (7-15) meq/L BUN (7-18) mg/dL Creatinine (0.51-1.17) mg/dL Est Cr Clr Drug Dosing mL/min Estimated GFR (MDRD) mL/min Glucose (70-99) mg/dL Lactic Acid 0.8 (0.4-2.0) mmol/L Calcium (8.5-10.1) mg/dL Phosphorus (2.6-4.7) mg/dL Magnesium (1.8-2.4) mg/dL Total Bilirubin (0.2-1.0) mg/dL AST (15-37) U/L ALT (12-78) U/L Alkaline Phosphatase (46-116) IU/L Troponin I High Sens (<=76) ng/L C-Reactive Protein (<=0.9) mg/dL NT-Pro-B Natriuret Pep (0-125) pg/mL Total Protein (6.4-8.2) g/dL Albumin (3.4-5.0) g/dL Specimen Type Urincath Urine Color Yellow Urine Appearance Clear Urine pH 5.5 (5.0-9.0) Ur Specific [place] 1.015 (1.005-1.030) Urine Protein Negative (NEGATIVE) mg/dL Urine Glucose (UA) Negative (NEGATIVE) mg/dL Urine Ketones Negative (NEGATIVE) mg/dL Urine Occult Blood Negative (NEGATIVE) Urine Nitrite Negative (NEGATIVE) Urine Bilirubin Negative (NEGATIVE) Urine Urobilinogen 0.2 (0.2-1.0) E.U./dL Ur Leukocyte Esterase Negative (NEGATIVE) SARS-CoV-2 RNA (CARMINE) Negative (NEGATIVE) Maxi Results Last 24 Hours: Microbiology 12/22/20 00:50 Influenza Type A Antigen Screen - Final Nasal, Unspecified NEGATIVE INFLUENZA A VIRUS AG REFERENCE RANGE: NEGATIVE Influenza Type B Antigen Screen - Final NEGATIVE INFLUENZA B VIRUS AG REFERENCE RANGE: NEGATIVE Med Orders - Current: Current Medications Acetaminophen (Acetaminophen 325 Mg Tab) 650 mg PO Q6H PRN PRN Reason: Pain Albuterol/Ipratropium (Albuterol/Ipratropium 3.0-0.5 Mg/3 Ml Neb Soln) 3 ml NEB Q4HRRT [facility] Last Admin: 12/22/20 11:04 Dose: 3 ml Documented by: Aripiprazole (Aripiprazole 10 Mg Tab) 5 mg PO BEDTIME DARREL Ascorbic Acid (Ascorbic Acid 500 Mg Tab) 500 mg PO Q48H [facility] Last Admin: 12/22/20 08:27 Dose: 500 mg Documented by: Budesonide (Budesonide 0.5 Mg/2 Ml Neb Susp) 0.5 mg INH BID [facility] Last Admin: 12/22/20 07:15 Dose: 0.5 mg Documented by: Calcium Carbonate/Glycine (Calcium Carbonate 500 Mg Tab.Chew) 1,000 mg PO TID PRN PRN Reason: Indigestion Doxycycline Monohydrate (Doxycycline Monohydrate 100 Mg Cap) 100 mg PO BID [facility] Last Admin: 12/22/20 07:17 Dose: 100 mg Documented by: Ferrous Sulfate (Ferrous Sulfate 325 Mg Tab) 325 mg PO Q2D [facility] Last Admin: 12/22/20 08:27 Dose: 325 mg Documented by: Furosemide (Furosemide 20 Mg Tab) 20 mg PO DAILY [facility] Last Admin: 12/22/20 07:17 Dose: 20 mg Documented by: Gabapentin (Gabapentin 300 Mg Cap) 300 mg PO BID [facility] Last Admin: 12/22/20 07:16 Dose: 300 mg Documented by: Sodium Chloride (Normal Saline) 1,000 mls @ 75 mls/hr IV ASDIRECTED [facility] Last Admin: 12/22/20 07:28 Dose: 75 mls/hr Documented by: Ceftriaxone Sodium 2 gm/ (Sodium Chloride) 100 mls @ 200 mls/hr IV Q24H [facility] Magnesium Oxide (Magnesium Oxide 400 Mg Tab) 400 mg PO BID@1200,1800 [facility] Last Admin: 12/22/20 11:04 Dose: 400 mg Documented by: Methylprednisolone Sodium Succinate (Methylprednisolone Sodium Succinate 125 Mg/2 Ml Sdv) 125 mg IVPUSH Q6H [facility] Last Admin: 12/22/20 07:17 Dose: 125 mg Documented by: Multivitamins/Minerals (Beta-Carotene (Vitamin A) W/Vitamin C & E Plus Minerals Tab) 1 tab PO BEDTIME [facility] Multivitamins/Minerals/Vitamin C (Multivitamin Tab) 1 tab PO QPM [facility] Non-Formulary Medication (Acetylcysteine [Nac]) 1 cap PO BID [facility] Non-Formulary Medication (Ipratropium [Atrovent 0.03% Nasal [place]]) 2 spray NASBOTH BID [facility] Pantoprazole Sodium (Pantoprazole 40 Mg Tab.Cr) 40 mg PO DAILY [facility] Last Admin: 12/22/20 07:17 Dose: 40 mg Documented by: Potassium Chloride (Potassium Chloride 10 Meq Tab.Er) 10 meq PO BIDMEALS@1200,1800 [facility] Last Admin: 12/22/20 11:04 Dose: 10 meq Documented by: Sertraline HCl (Sertraline 50 Mg Tab) 200 mg PO DAILY [facility] Last Admin: 12/22/20 07:15 Dose: 200 mg Documented by: Sodium Chloride (Sodium Chloride 0.9% 10 Ml Syringe) 10 ml FLUSH ASDIRECTED PRN PRN Reason: Keep Vein Open Last Admin: 12/22/20 07:18 Dose: 10 ml Documented by: Tamsulosin HCl (Tamsulosin 0.4 Mg Cap.Er) 0.4 mg PO BEDTIME DARREL Discontinued Medications Acetaminophen (Acetaminophen 500 Mg Tab) 1,000 mg PO ONETIME ONE Stop: 12/22/20 02:08 Last Admin: 12/22/20 02:10 Dose: 1,000 mg Documented by: Albuterol (Albuterol 0.083% 2.5 Mg/3 Ml Neb Soln) 2.5 mg NEB ONETIME ONE Stop: 12/22/20 00:14 Last Admin: 12/22/20 00:26 Dose: 2.5 mg Documented by: Albuterol/Ipratropium (Albuterol/Ipratropium 3.0-0.5 Mg/3 Ml Neb Soln) 3 ml NEB ONETIME ONE Stop: 12/22/20 00:01 Last Admin: 12/22/20 00:11 Dose: 3 ml Documented by: Ceftriaxone Sodium 2 gm/ (Sodium Chloride) 100 mls @ 200 mls/hr IV ONETIME ONE Stop: 12/22/20 00:30 Last Admin: 12/22/20 00:15 Dose: 200 mls/hr Documented by: Methylprednisolone Sodium Succinate (Methylprednisolone Sodium Succinate 125 Mg/2 Ml Sdv) 125 mg IV ONETIME ONE Stop: 12/22/20 00:01 Last Admin: 12/22/20 00:12 Dose: 125 mg Documented by: Methylprednisolone Sodium Succinate (Methylprednisolone Sodium Succinate 125 Mg/2 Ml Sdv) 125 mg IVPUSH Q6H DARREL - Exam Quality Assessment: Supplemental Oxygen, Urine Catheter General: Alert, Oriented (Elderly male, NAD. He is lying in bed with the TV volume turned way up, he is [place] and does not currently have his hearing aids.) HEENT: Pupils Equal, Pupils Reactive, EOMI Neck: Supple Lungs: Normal Respiratory Effort, Crackles (scatterd, currently receving a neb; note loose occasional cough) Cardiovascular: Regular Rate, Regular Rhythm GI/Abdominal Exam: Normal Bowel Sounds, Soft, Non-Tender (Male) Exam: Deferred, Other (Ruiz draining clear yellow urine) Extremities: Normal Inspection, Normal Range of Motion, No Pedal Edema, Normal Capillary Refill (TEDs on) Skin: Warm, Dry, Intact Neurological: No New Focal Deficit Psy/Mental Status: Alert, Normal Affect, Normal Mood - Patient Data Lab Results Last 24 hrs: Laboratory Results - last 24 hr 12/22/20 12/22/20 12/22/20 Range/Units 00:08 00:08 00:08 WBC 6.4 (4.0-10.2) K/uL RBC 4.19 L (4.33-5.41) M/uL Hgb 11.7 L D (13.1-16.8) g/dL Hct 36.2 L (39.0-49.0) % MCV 86.4 D (84.0-98.0) fL MCH 27.9 L (28.2-33.3) pg MCHC 32.3 (31.7-36.0) g/dL RDW 16.2 H (11.2-14.1) % Plt Count 93 L (150-350) K/uL Neut % (Auto) 81.2 H (45.0-80.0) % Lymph % (Auto) 8.9 L (10.0-50.0) % [place] % (Auto) 7.1 (2.0-14.0) % Eos % (Auto) 2.5 (0.0-5.0) % Baso % (Auto) 0.3 (0.0-2.0) % Neut # (Auto) 5.18 (1.40-7.00) K/uL Lymph # (Auto) 0.57 (0.50-3.50) K/uL [place] # (Auto) 0.45 (0.00-1.00) K/uL Eos # (Auto) 0.16 (0.00-0.50) K/uL Baso # (Auto) 0.02 (0.00-0.20) K/uL PT 11.0 (9.5-12.0) SEC INR 1.1 APTT 27.9 (24.5-32.8) SEC POC VBG pH (7.31-7.41) POC VBG pCO2 (41-51) mmHg POC VBG pO2 mmHg POC VBG HCO3 (23-28) mmol/L POC Venous O2 Sat % VBG Base Excess (-(2)-3) mmol/L Sodium (136-145) mmol/L Potassium (3.5-5.1) mmol/L Chloride (98-107) mmol/L Carbon Dioxide (21.0-32.0) mmol/L POC Venous Total CO2 mmol/L Anion Gap (7-15) meq/L BUN (7-18) mg/dL Creatinine (0.51-1.17) mg/dL Est Cr Clr Drug Dosing mL/min Estimated GFR (MDRD) mL/min Glucose (70-99) mg/dL Lactic Acid (0.4-2.0) mmol/L Calcium (8.5-10.1) mg/dL Phosphorus (2.6-4.7) mg/dL Magnesium (1.8-2.4) mg/dL Total Bilirubin (0.2-1.0) mg/dL AST (15-37) U/L ALT (12-78) U/L Alkaline Phosphatase (46-116) IU/L Troponin I High Sens (<=76) ng/L C-Reactive Protein (<=0.9) mg/dL NT-Pro-B Natriuret Pep (0-125) pg/mL Total Protein (6.4-8.2) g/dL Albumin (3.4-5.0) g/dL Specimen Type Urine Color Urine Appearance Urine pH (5.0-9.0) Ur Specific [place] (1.005-1.030) Urine Protein (NEGATIVE) mg/dL Urine Glucose (UA) (NEGATIVE) mg/dL Urine Ketones (NEGATIVE) mg/dL Urine Occult Blood (NEGATIVE) Urine Nitrite (NEGATIVE) Urine Bilirubin (NEGATIVE) Urine Urobilinogen (0.2-1.0) E.U./dL Ur Leukocyte Esterase (NEGATIVE) SARS-CoV-2 RNA (CARMINE) (NEGATIVE) 12/22/20 12/22/20 12/22/20 Range/Units 00:08 00:08 00:15 WBC (4.0-10.2) K/uL RBC (4.33-5.41) M/uL Hgb (13.1-16.8) g/dL Hct (39.0-49.0) % MCV (84.0-98.0) fL MCH (28.2-33.3) pg MCHC (31.7-36.0) g/dL RDW (11.2-14.1) % Plt Count (150-350) K/uL Neut % (Auto) (45.0-80.0) % Lymph % (Auto) (10.0-50.0) % [place] % (Auto) (2.0-14.0) % Eos % (Auto) (0.0-5.0) % Baso % (Auto) (0.0-2.0) % Neut # (Auto) (1.40-7.00) K/uL Lymph # (Auto) (0.50-3.50) K/uL [place] # (Auto) (0.00-1.00) K/uL Eos # (Auto) (0.00-0.50) K/uL Baso # (Auto) (0.00-0.20) K/uL PT (9.5-12.0) SEC INR APTT (24.5-32.8) SEC POC VBG pH 7.38 (7.31-7.41) POC VBG pCO2 49 (41-51) mmHg POC VBG pO2 31 mmHg POC VBG HCO3 29 H (23-28) mmol/L POC Venous O2 Sat 58 % VBG Base Excess 3 (-(2)-3) mmol/L Sodium 146 H (136-145) mmol/L Potassium 4.3 (3.5-5.1) mmol/L Chloride 106 (98-107) mmol/L Carbon Dioxide 30.2 (21.0-32.0) mmol/L POC Venous Total CO2 30 mmol/L Anion Gap 14.1 (7-15) meq/L BUN 29 H (7-18) mg/dL Creatinine 1.33 H (0.51-1.17) mg/dL Est Cr Clr Drug Dosing 48.03 mL/min Estimated GFR (MDRD) 52 mL/min Glucose 155 H (70-99) mg/dL Lactic Acid 2.6 H (0.4-2.0) mmol/L Calcium 9.0 (8.5-10.1) mg/dL Phosphorus 3.1 (2.6-4.7) mg/dL Magnesium 1.9 (1.8-2.4) mg/dL Total Bilirubin 0.8 (0.2-1.0) mg/dL AST 28 (15-37) U/L ALT 31 (12-78) U/L Alkaline Phosphatase 187 H (46-116) IU/L Troponin I High Sens 12 (<=76) ng/L C-Reactive Protein 4.0 H (<=0.9) mg/dL NT-Pro-B Natriuret Pep 326 H (0-125) pg/mL Total Protein 7.4 (6.4-8.2) g/dL Albumin 3.2 L (3.4-5.0) g/dL Specimen Type Urine Color Urine Appearance Urine pH (5.0-9.0) Ur Specific [place] (1.005-1.030) Urine Protein (NEGATIVE) mg/dL Urine Glucose (UA) (NEGATIVE) mg/dL Urine Ketones (NEGATIVE) mg/dL Urine Occult Blood (NEGATIVE) Urine Nitrite (NEGATIVE) Urine Bilirubin (NEGATIVE) Urine Urobilinogen (0.2-1.0) E.U./dL Ur Leukocyte Esterase (NEGATIVE) SARS-CoV-2 RNA (CARMINE) (NEGATIVE) 12/22/20 12/22/20 12/22/20 Range/Units 00:50 01:29 06:08 WBC (4.0-10.2) K/uL RBC (4.33-5.41) M/uL Hgb (13.1-16.8) g/dL Hct (39.0-49.0) % MCV (84.0-98.0) fL MCH (28.2-33.3) pg MCHC (31.7-36.0) g/dL RDW (11.2-14.1) % Plt Count (150-350) K/uL Neut % (Auto) (45.0-80.0) % Lymph % (Auto) (10.0-50.0) % [place] % (Auto) (2.0-14.0) % Eos % (Auto) (0.0-5.0) % Baso % (Auto) (0.0-2.0) % Neut # (Auto) (1.40-7.00) K/uL Lymph # (Auto) (0.50-3.50) K/uL [place] # (Auto) (0.00-1.00) K/uL Eos # (Auto) (0.00-0.50) K/uL Baso # (Auto) (0.00-0.20) K/uL PT (9.5-12.0) SEC INR APTT (24.5-32.8) SEC POC VBG pH (7.31-7.41) POC VBG pCO2 (41-51) mmHg POC VBG pO2 mmHg POC VBG HCO3 (23-28) mmol/L POC Venous O2 Sat % VBG Base Excess (-(2)-3) mmol/L Sodium (136-145) mmol/L Potassium (3.5-5.1) mmol/L Chloride (98-107) mmol/L Carbon Dioxide (21.0-32.0) mmol/L POC Venous Total CO2 mmol/L Anion Gap (7-15) meq/L BUN (7-18) mg/dL Creatinine (0.51-1.17) mg/dL Est Cr Clr Drug Dosing mL/min Estimated GFR (MDRD) mL/min Glucose (70-99) mg/dL Lactic Acid 0.8 (0.4-2.0) mmol/L Calcium (8.5-10.1) mg/dL Phosphorus (2.6-4.7) mg/dL Magnesium (1.8-2.4) mg/dL Total Bilirubin (0.2-1.0) mg/dL AST (15-37) U/L ALT (12-78) U/L Alkaline Phosphatase (46-116) IU/L Troponin I High Sens (<=76) ng/L C-Reactive Protein (<=0.9) mg/dL NT-Pro-B Natriuret Pep (0-125) pg/mL Total Protein (6.4-8.2) g/dL Albumin (3.4-5.0) g/dL Specimen Type Urincath Urine Color Yellow Urine Appearance Clear Urine pH 5.5 (5.0-9.0) Ur Specific [place] 1.015 (1.005-1.030) Urine Protein Negative (NEGATIVE) mg/dL Urine Glucose (UA) Negative (NEGATIVE) mg/dL Urine Ketones Negative (NEGATIVE) mg/dL Urine Occult Blood Negative (NEGATIVE) Urine Nitrite Negative (NEGATIVE) Urine Bilirubin Negative (NEGATIVE) Urine Urobilinogen 0.2 (0.2-1.0) E.U./dL Ur Leukocyte Esterase Negative (NEGATIVE) SARS-CoV-2 RNA (CARMINE) Negative (NEGATIVE) Result Diagrams: 12/22/20 00:08 12/22/20 00:08 Maxi Results Last 24 hrs: Microbiology 12/22/20 00:50 Influenza Type A Antigen Screen - Final Nasal, Unspecified NEGATIVE INFLUENZA A VIRUS AG REFERENCE RANGE: NEGATIVE Influenza Type B Antigen Screen - Final NEGATIVE INFLUENZA B VIRUS AG REFERENCE RANGE: NEGATIVE Sepsis Event Note - Evaluation Sepsis Screening Result: Severe Sepsis Risk - Focused Exam Vital Signs: Vital Signs Temp Temp Pulse Resp BP BP Pulse Ox 12/22/20 11:06 36.8 C 77 20 153/87 H 92 L 12/22/20 07:22 36.8 C 78 20 113/69 96 12/22/20 04:00 37.3 C 71 24 H 154/86 H 154/86 H 95 12/22/20 02:58 37.7 C 98 28 H 114/87 96 12/22/20 02:30 38.1 C 98 28 H 114/78 96 12/22/20 02:10 38.7 C H 12/22/20 01:30 38.7 C H 98 28 H 111/59 L 95 12/22/20 00:30 96 24 H 145/71 H 94 L 12/21/20 23:55 94 L 12/21/20 23:52 37.2 C 94 30 H 138/75 70 L - Problem List & Annotations (1) CAP (community acquired pneumonia) SNOMED Code(s): 521288052 Code(s): J18.9 - PNEUMONIA, UNSPECIFIED ORGANISM Status: Acute Current Visit: Yes Annotation/Comment:: 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 Continue Ceftriaxone 2gm IV q 24 hr and Doxycycline 100mg po BID. Continue Duonebs. Repeat labs in AM. (2) COPD exacerbation SNOMED Code(s): 717596230 Code(s): J44.1 - CHRONIC OBSTRUCTIVE PULMONARY DISEASE W (ACUTE) EXACERBATION Status: Acute Current Visit: Yes Annotation/Comment:: Receiving SoluMedrol 125mg po TID along with Duonebs. Currently on 6 liters of oxygen, but will attempt to wean back to his usual 4 liters/min that he is on at home. Wheezing decreased now. (3) Lactic acid acidosis SNOMED Code(s): 84282965 Code(s): E87.2 - ACIDOSIS Status: Acute Current Visit: Yes Annotation/Comment:: Elevated in the ER at 2.6, but decreased to 0.8 on repeat, doubt sepsis and suspect IV fluids corrected this. (4) Acute and chronic respiratory failure SNOMED Code(s): 76862987 Code(s): J96.20 - ACUTE AND CHR RESP FAILURE, UNSP W HYPOXIA OR HYPERCAPNIA Status: Acute Current Visit: Yes (5) Sleep apnea in adult SNOMED Code(s): 05753894 Code(s): G47.33 - OBSTRUCTIVE SLEEP APNEA (ADULT) (PEDIATRIC) Status: Suspected Current Visit: No Annotation/Comment:: Attempt to ascertain home CPAP status. On 4 liters of oxygen at home. - Problem List Review Problem List Initiated/Reviewed/Updated: Yes - My Orders Last 24 Hours: My Active Orders 12/22/20 11:12 Calcium Carbonate [Tums] 1,000 mg PO TID PRN 12/23/20 05:11 BMP [BASIC METABOLIC PANEL,BMP] [CHEM] AM C-REACTIVE PROTEIN [CHEM] AM CBC WITH AUTO DIFF [HEME] AM MAGNESIUM [CHEM] AM - Plan Plan:: See Above
[2020-12-22] MEDS: Multivitamin Tab PO SCH (17:23)
[2020-12-22] MEDS: IPRATROPIUM NASBOTH SCH (17:25)
[2020-12-22] MEDS: Beta-Carotene (Vitamin A) w/Vitamin C & E plus Minerals Tab PO SCH (19:18)
[2020-12-22] MEDS: Tamsulosin 0.4 MG Cap.ER PO SCH (19:18)
[2020-12-22] MEDS: ARIPiprazole 10 MG Tab PO SCH (19:18)
[2020-12-22] MEDS: cefTRIAXone 2 GM in Sodium Chloride 0.9% 100 ML IV SCH (23:54)
[2020-12-23] MEDS: methylPREDNISolone Sodium Succinate 125 MG/2 ML SDV IVPUSH SCH ×4 (00:03→20:08)
[2020-12-23] MEDS: Temazepam 15 MG Cap PO PRN ×2 (02:04→23:16)
[2020-12-23] MEDS: Albuterol/Ipratropium 3.0-0.5 MG/3 ML Neb Soln NEB SCH ×6 (04:49→20:09)
[2020-12-23 08:02] LABS: CHLORIDE,CL 111 mmol/L (98-107); SODIUM,NA 145 mmol/L (136-145)
[2020-12-23 08:12] LABS: ANION GAP 11.1 meq/L (7-15)
[2020-12-23] MEDS: Gabapentin 300 MG Cap PO SCH ×2 (08:43→17:42)
[2020-12-23] MEDS: Pantoprazole 40 MG Tab.CR PO SCH (08:43)
[2020-12-23] MEDS: Doxycycline Monohydrate 100 MG Cap PO SCH ×2 (08:43→17:42)
[2020-12-23] MEDS: Sertraline 50 MG Tab PO SCH (08:44)
[2020-12-23] MEDS: Furosemide 20 MG Tab PO SCH (08:44)
[2020-12-23] MEDS: IPRATROPIUM NASBOTH SCH ×2 (08:46→17:46)
[2020-12-23] MEDS: Budesonide 0.5 MG/2 ML Neb Susp INH SCH ×2 (08:46→17:42)
--- NOTE | 2020-12-23 11:08 | PCM.PN ---
- General Info Date of Service: 12/23/20 Admission Dx/Problem (Free Text): 1)Community Acquired Pneumonia 2)COPD Exacerbation 3)Lactic Acidosis 4)Acute on Chronic Respiratory Failure Subjective Update: Nj is a a 75 y/o male, seen on AM rounds. Doing better, but according to RN gets very winded yet with being up to the bathroom and transfers. Still on 6 liters of oxygen, desats easily. Patient reports feeling better today. - Review of Systems General: Reports: Weakness HEENT: Reports: No Symptoms Pulmonary: Reports: Shortness of Breath, Cough Cardiovascular: Reports: No Symptoms Gastrointestinal: Reports: No Symptoms Genitourinary: Reports: No Symptoms Musculoskeletal: Reports: No Symptoms Skin: Reports: No Symptoms Neurological: Reports: No Symptoms Psychiatric: Reports: No Symptoms - Patient Data Vitals - Most Recent: Last Vital Signs Temp 36.5 C 12/23/20 08:00 Pulse 81 12/23/20 08:00 Resp 26 H 12/23/20 08:00 BP 129/81 12/23/20 08:00 Pulse Ox 96 12/23/20 08:00 Weight - Most Recent: 106.141 kg I&O - Last 24 Hours: Intake & Output 12/22/20 12/23/20 12/23/20 22:59 06:59 14:59 Intake Total 1817 1585 Output Total 700 325 Balance 1117 1260 Lab Results Last 24 Hours: Laboratory Results - last 24 hr 12/23/20 12/23/20 Range/Units 07:26 07:26 WBC 4.1 (4.0-10.2) K/uL RBC 3.48 L (4.33-5.41) M/uL Hgb 9.7 L D (13.1-16.8) g/dL Hct 29.9 L (39.0-49.0) % MCV 85.9 (84.0-98.0) fL MCH 27.9 L (28.2-33.3) pg MCHC 32.4 (31.7-36.0) g/dL RDW 15.5 H (11.2-14.1) % Plt Count 82 L (150-350) K/uL Neut % (Auto) 91.1 H (45.0-80.0) % Lymph % (Auto) 4.2 L (10.0-50.0) % Mcpherson % (Auto) 4.7 (2.0-14.0) % Eos % (Auto) 0.0 (0.0-5.0) % Baso % (Auto) 0.0 (0.0-2.0) % Neut # (Auto) 3.70 (1.40-7.00) K/uL Lymph # (Auto) 0.17 L (0.50-3.50) K/uL Mcpherson # (Auto) 0.19 (0.00-1.00) K/uL Eos # (Auto) 0.00 (0.00-0.50) K/uL Baso # (Auto) 0.00 (0.00-0.20) K/uL Sodium 145 (136-145) mmol/L Potassium 4.3 (3.5-5.1) mmol/L Chloride 111 H (98-107) mmol/L Carbon Dioxide 27.2 (21.0-32.0) mmol/L Anion Gap 11.1 (7-15) meq/L BUN 35 H (7-18) mg/dL Creatinine 1.06 (0.51-1.17) mg/dL Est Cr Clr Drug Dosing 58.36 mL/min Estimated GFR (MDRD) > 60 mL/min Glucose 173 H (70-99) mg/dL Calcium 8.6 (8.5-10.1) mg/dL Magnesium 1.9 (1.8-2.4) mg/dL C-Reactive Protein 3.9 H (<=0.9) mg/dL Maxi Results Last 24 Hours: Microbiology 12/22/20 00:15 Aerobic Blood Culture - Preliminary Blood - Venous - Lab Draw NO GROWTH AFTER 1 DAY Anaerobic Blood Culture - Preliminary NO GROWTH AFTER 1 DAY 12/22/20 00:08 Aerobic Blood Culture - Preliminary Blood - Venous NO GROWTH AFTER 1 DAY Anaerobic Blood Culture - Preliminary NO GROWTH AFTER 1 DAY Med Orders - Current: Current Medications Acetaminophen (Acetaminophen 325 Mg Tab) 650 mg PO Q6H PRN PRN Reason: Pain Albuterol/Ipratropium (Albuterol/Ipratropium 3.0-0.5 Mg/3 Ml Neb Soln) 3 ml NEB Q4HRRT [facility]AR[facility] Last Admin: 12/23/20 08:46 Dose: 3 ml Documented by: Aripiprazole (Aripiprazole 10 Mg Tab) 5 mg PO BEDTIME [facility] Last Admin: 12/22/20 19:18 Dose: 5 mg Documented by: Ascorbic Acid (Ascorbic Acid 500 Mg Tab) 500 mg PO Q48H [facility] Last Admin: 12/22/20 08:27 Dose: 500 mg Documented by: Budesonide (Budesonide 0.5 Mg/2 Ml Neb Susp) 0.5 mg INH BID [facility] Last Admin: 12/23/20 08:46 Dose: 0.5 mg Documented by: Calcium Carbonate/Glycine (Calcium Carbonate 500 Mg Tab.Chew) 1,000 mg PO TID PRN PRN Reason: Indigestion Last Admin: 12/22/20 11:22 Dose: 1,000 mg Documented by: Doxycycline Monohydrate (Doxycycline Monohydrate 100 Mg Cap) 100 mg PO BID [facility] Last Admin: 12/23/20 08:43 Dose: 100 mg Documented by: Ferrous Sulfate (Ferrous Sulfate 325 Mg Tab) 325 mg PO Q2D [facility] Last Admin: 12/22/20 08:27 Dose: 325 mg Documented by: Furosemide (Furosemide 20 Mg Tab) 20 mg PO DAILY [facility] Last Admin: 12/23/20 08:44 Dose: 20 mg Documented by: Gabapentin (Gabapentin 300 Mg Cap) 300 mg PO BID [facility] Last Admin: 12/23/20 08:43 Dose: 300 mg Documented by: Sodium Chloride (Normal Saline) 1,000 mls @ 75 mls/hr IV ASDIRECTED [facility] Last Admin: 12/22/20 21:45 Dose: 75 mls/hr Documented by: Ceftriaxone Sodium 2 gm/ (Sodium Chloride) 100 mls @ 200 mls/hr IV Q24H [facility] Last Admin: 12/22/20 23:54 Dose: 200 mls/hr Documented by: Influenza Virus Vaccine (Pharmacy To Dose - Influenza Vaccine) 1 each IM ONETIME ONE Stop: 12/22/20 17:46 Magnesium Oxide (Magnesium Oxide 400 Mg Tab) 400 mg PO BID@1200,1800 [facility] Last Admin: 12/22/20 17:22 Dose: 400 mg Documented by: Methylprednisolone Sodium Succinate (Methylprednisolone Sodium Succinate 125 Mg/2 Ml Sdv) 125 mg IVPUSH Q6H [facility] Last Admin: 12/23/20 08:43 Dose: 125 mg Documented by: Multivitamins/Minerals (Beta-Carotene (Vitamin A) W/Vitamin C & E Plus Minerals Tab) 1 tab PO BEDTIME [facility] Last Admin: 12/22/20 19:18 Dose: 1 tab Documented by: Multivitamins/Minerals/Vitamin C (Multivitamin Tab) 1 tab PO QPM [facility] Last Admin: 12/22/20 17:23 Dose: 1 tab Documented by: Acetylcysteine [Nac] 600 Mg CapsuleOwn Med 1 cap PO BID [facility] Last Admin: 12/23/20 08:45 Dose: 1 cap Documented by: Ipratropium [ Atrovent 0.03% Nasal [place]] 30 Ml Bottle Own Med 2 spray NASBOTH BID [facility] Last Admin: 12/23/20 08:46 Dose: 2 spray Documented by: Pantoprazole Sodium (Pantoprazole 40 Mg Tab.Cr) 40 mg PO DAILY [facility] Last Admin: 12/23/20 08:43 Dose: 40 mg Documented by: Potassium Chloride (Potassium Chloride 10 Meq Tab.Er) 10 meq PO BIDMEALS@1200,1800 [facility] Last Admin: 12/22/20 17:23 Dose: 10 meq Documented by: Sertraline HCl (Sertraline 50 Mg Tab) 200 mg PO DAILY [facility] Last Admin: 12/23/20 08:44 Dose: 200 mg Documented by: Sodium Chloride (Sodium Chloride 0.9% 10 Ml Syringe) 10 ml FLUSH ASDIRECTED PRN PRN Reason: Keep Vein Open Last Admin: 12/22/20 07:18 Dose: 10 ml Documented by: Tamsulosin HCl (Tamsulosin 0.4 Mg Cap.Er) 0.4 mg PO BEDTIME [facility] Last Admin: 12/22/20 19:18 Dose: 0.4 mg Documented by: Temazepam (Temazepam 15 Mg Cap) 15 mg PO BEDTIME PRN PRN Reason: Insomnia Last Admin: 12/23/20 02:04 Dose: 15 mg Documented by: Discontinued Medications Acetaminophen (Acetaminophen 500 Mg Tab) 1,000 mg PO ONETIME ONE Stop: 12/22/20 02:08 Last Admin: 12/22/20 02:10 Dose: 1,000 mg Documented by: Albuterol (Albuterol 0.083% 2.5 Mg/3 Ml Neb Soln) 2.5 mg NEB ONETIME ONE Stop: 12/22/20 00:14 Last Admin: 12/22/20 00:26 Dose: 2.5 mg Documented by: Albuterol/Ipratropium (Albuterol/Ipratropium 3.0-0.5 Mg/3 Ml Neb Soln) 3 ml NEB ONETIME ONE Stop: 12/22/20 00:01 Last Admin: 12/22/20 00:11 Dose: 3 ml Documented by: Ceftriaxone Sodium 2 gm/ (Sodium Chloride) 100 mls @ 200 mls/hr IV ONETIME ONE Stop: 12/22/20 00:30 Last Admin: 12/22/20 00:15 Dose: 200 mls/hr Documented by: Methylprednisolone Sodium Succinate (Methylprednisolone Sodium Succinate 125 Mg/2 Ml Sdv) 125 mg IV ONETIME ONE Stop: 12/22/20 00:01 Last Admin: 12/22/20 00:12 Dose: 125 mg Documented by: Methylprednisolone Sodium Succinate (Methylprednisolone Sodium Succinate 125 Mg/2 Ml Sdv) 125 mg IVPUSH Q6H [facility] - Exam Quality Assessment: Supplemental Oxygen General: Alert, Oriented (Obese adult male) HEENT: EOMI, Mucous Membr. Moist/[place] Neck: Supple Lungs: Crackles (BLL, much louder in the LLL, no wheezing noted) Cardiovascular: Regular Rate, Regular Rhythm GI/Abdominal Exam: Normal Bowel Sounds, Soft, Non-Tender, No Distention (Male) Exam: Deferred Back Exam: Normal Inspection Extremities: Normal Inspection, Normal Range of Motion, Non-Tender, No Pedal [place] ma, Normal Capillary Refill Skin: Warm, Dry, Intact Neurological: No New Focal Deficit Psy/Mental Status: Alert, Normal Affect, Normal Mood - Patient Data Lab Results Last 24 hrs: Laboratory Results - last 24 hr 12/23/20 12/23/20 Range/Units 07:26 07:26 WBC 4.1 (4.0-10.2) K/uL RBC 3.48 L (4.33-5.41) M/uL Hgb 9.7 L D (13.1-16.8) g/dL Hct 29.9 L (39.0-49.0) % MCV 85.9 (84.0-98.0) fL MCH 27.9 L (28.2-33.3) pg MCHC 32.4 (31.7-36.0) g/dL RDW 15.5 H (11.2-14.1) % Plt Count 82 L (150-350) K/uL Neut % (Auto) 91.1 H (45.0-80.0) % Lymph % (Auto) 4.2 L (10.0-50.0) % Mcpherson % (Auto) 4.7 (2.0-14.0) % Eos % (Auto) 0.0 (0.0-5.0) % Baso % (Auto) 0.0 (0.0-2.0) % Neut # (Auto) 3.70 (1.40-7.00) K/uL Lymph # (Auto) 0.17 L (0.50-3.50) K/uL Mcpherson # (Auto) 0.19 (0.00-1.00) K/uL Eos # (Auto) 0.00 (0.00-0.50) K/uL Baso # (Auto) 0.00 (0.00-0.20) K/uL Sodium 145 (136-145) mmol/L Potassium 4.3 (3.5-5.1) mmol/L Chloride 111 H (98-107) mmol/L Carbon Dioxide 27.2 (21.0-32.0) mmol/L Anion Gap 11.1 (7-15) meq/L BUN 35 H (7-18) mg/dL Creatinine 1.06 (0.51-1.17) mg/dL Est Cr Clr Drug Dosing 58.36 mL/min Estimated GFR (MDRD) > 60 mL/min Glucose 173 H (70-99) mg/dL Calcium 8.6 (8.5-10.1) mg/dL Magnesium 1.9 (1.8-2.4) mg/dL C-Reactive Protein 3.9 H (<=0.9) mg/dL Result Diagrams: 12/23/20 07:26 12/23/20 07:26 Maxi Results Last 24 hrs: Microbiology 12/22/20 00:15 Aerobic Blood Culture - Preliminary Blood - Venous - Lab Draw NO GROWTH AFTER 1 DAY Anaerobic Blood Culture - Preliminary NO GROWTH AFTER 1 DAY 12/22/20 00:08 Aerobic Blood Culture - Preliminary Blood - Venous NO GROWTH AFTER 1 DAY Anaerobic Blood Culture - Preliminary NO GROWTH AFTER 1 DAY Sepsis Event Note - Evaluation Sepsis Screening Result: Possible Sepsis Risk - Focused Exam Vital Signs: Vital Signs Temp Pulse Resp BP Pulse Ox 12/23/20 08:00 36.5 C 81 26 H 129/81 96 12/23/20 05:10 36.6 C 60 24 H 129/70 90 L 12/23/20 00:00 37.0 C 71 20 131/79 97 - Problem List & Annotations (1) CAP (community acquired pneumonia) SNOMED Code(s): 675602120 Code(s): J18.9 - PNEUMONIA, UNSPECIFIED ORGANISM Status: Acute Current Visit: Yes (2) COPD exacerbation SNOMED Code(s): 976746269 Code(s): J44.1 - CHRONIC OBSTRUCTIVE PULMONARY DISEASE W (ACUTE) EXACERBATION Status: Acute Current Visit: Yes Annotation/Comment:: Receiving SoluMedrol 125mg po TID along with Duonebs. Wheezing decreased now. Still quite winded with exertion. PT to see for strengthening. (3) Lactic acid acidosis SNOMED Code(s): 56183890 Code(s): E87.2 - ACIDOSIS Status: Acute Current Visit: Yes Annotation /Comment:: Elevated in the ER at 2.6, but decreased to 0.8 on repeat, doubt sepsis and suspect IV fluids corrected this. (4) Acute and chronic respiratory failure SNOMED Code(s): 59163012 Code(s): J96.20 - ACUTE AND CHR RESP FAILURE, UNSP W HYPOXIA OR HYPERCAPNIA Status: Acute Current Visit: Yes (5) Sleep apnea in adult SNOMED Code(s): 99601096 Code(s): G47.33 - OBSTRUCTIVE SLEEP APNEA (ADULT) (PEDIATRIC) Status: Suspected Current Visit: No Annotation/Comment:: Attempt to ascertain home CPAP status. On 4 liters of oxygen at home. - Problem List Review Problem List Initiated/Reviewed/Updated: Yes - My Orders Last 24 Hours: My Active Orders 12/22/20 11:12 Calcium Carbonate [Tums] 1,000 mg PO TID PRN 12/22/20 17:03 PT Evaluation and Treatment [CONS] Routine 12/22/20 17:04 Consult to Case Management/Bog Worker [CONS] Routine OT Evaluation and Treatment [CONS] Routine 12/22/20 17:45 Pharmacy to Dose - InFluenza V [Pharmacy to Dose - InFluenza Vaccine] 1 each IM ONETIME ONE 12/22/20 17:46 Vaccine to be Administered/Admin Charge [RC] ASDIRECTED 12/23/20 01:55 Temazepam [Restoril] 15 mg PO BEDTIME PRN 12/23/20 11:01 Chest 2V [CR] Routine 12/24/20 05:11 BASIC METABOLIC PANEL,BMP [CHEM] AM CBC WITH AUTO DIFF [HEME] AM - Plan Plan:: See Above
[2020-12-23] MEDS: Sodium Chloride 0.9% 1,000 ML IV SCH (12:16)
[2020-12-23] MEDS: Potassium Chloride 10 MEQ Tab.ER PO SCH ×2 (12:16→17:42)
[2020-12-23] MEDS: Magnesium Oxide 400 MG Tab PO SCH ×2 (12:16→17:42)
[2020-12-23] MEDS: Multivitamin Tab PO SCH (17:42)
[2020-12-23] MEDS: Tamsulosin 0.4 MG Cap.ER PO SCH (20:08)
[2020-12-23] MEDS: ARIPiprazole 10 MG Tab PO SCH (20:08)
[2020-12-23] MEDS: Beta-Carotene (Vitamin A) w/Vitamin C & E plus Minerals Tab PO SCH (20:08)
[2020-12-23] MEDS: Sodium Chloride 0.9% 10 ML Syringe FLUSH PRN (20:11)
[2020-12-23] MEDS: cefTRIAXone 2 GM in Sodium Chloride 0.9% 100 ML IV SCH (23:15)
[2020-12-24] MEDS: Sodium Chloride 0.9% 1,000 ML IV SCH (00:37)
[2020-12-24] MEDS: methylPREDNISolone Sodium Succinate 125 MG/2 ML SDV IVPUSH SCH ×4 (00:37→19:14)
[2020-12-24] MEDS: Gabapentin 300 MG Cap PO SCH ×2 (07:39→17:41)
[2020-12-24] MEDS: Doxycycline Monohydrate 100 MG Cap PO SCH ×2 (07:39→17:42)
[2020-12-24] MEDS: Sertraline 50 MG Tab PO SCH (07:40)
[2020-12-24] MEDS: Pantoprazole 40 MG Tab.CR PO SCH (07:40)
[2020-12-24] MEDS: Furosemide 20 MG Tab PO SCH (07:41)
[2020-12-24] MEDS: IPRATROPIUM NASBOTH SCH ×2 (07:46→17:44)
[2020-12-24] MEDS: Albuterol/Ipratropium 3.0-0.5 MG/3 ML Neb Soln NEB SCH ×4 (07:54→19:15)
[2020-12-24] MEDS: Budesonide 0.5 MG/2 ML Neb Susp INH SCH ×2 (07:57→17:45)
[2020-12-24] MEDS: Sodium Chloride 0.9% 10 ML Syringe FLUSH PRN ×3 (07:58→19:16)
[2020-12-24 08:00] LABS: CHLORIDE,CL 112 mmol/L (98-107); SODIUM,NA 146 mmol/L (136-145)
[2020-12-24 08:03] LABS: ANION GAP 10.8 meq/L (7-15)
--- NOTE | 2020-12-24 08:15 | PCM.PN ---
- General Info Date of Service: 12/24/20 Admission Dx/Problem (Free Text): 1)Community Acquired Pneumonia 2)COPD Exacerbation 3)Lactic Acidosis 4)Acute on Chronic Respiratory Failure Subjective Update: Seen on rounds. Patient been resistant for vallejo to come out, but he is not getting up to the bathroom. Oxygen been weaned down to 4 liters/min overnight. According to nursing he is still weak and having hard time getting to the bathroom. Was seen by PT for strengthening. - Review of Systems General: Reports: Weakness HEENT: Reports: No Symptoms Pulmonary: Reports: No Symptoms, Shortness of Breath (with exertion), Cough Cardiovascular: Reports: Dyspnea on Exertion Gastrointestinal: Reports: No Symptoms Genitourinary: Reports: No Symptoms Musculoskeletal: Reports: No Symptoms Skin: Reports: No Symptoms Neurological: Reports: No Symptoms Psychiatric: Reports: No Symptoms - Patient Data Vitals - Most Recent: Last Vital Signs Temp 36.9 C 12/24/20 07:33 Pulse 52 L 12/24/20 07:33 Resp 12 12/24/20 07:33 BP 135/68 12/24/20 07:33 Pulse Ox 94 L 12/24/20 07:33 Weight - Most Recent: 106.141 kg I&O - Last 24 Hours: Intake & Output 12/23/20 12/24/20 12/24/20 22:59 06:59 14:59 Intake Total 1436 1030 Output Total 1200 1100 Balance 236 -70 Lab Results Last 24 Hours: Laboratory Results - last 24 hr 12/23/20 12/24/20 12/24/20 Range/Units 07:26 07:31 07:31 WBC 3.9 L (4.0-10.2) K/uL RBC 3.50 L (4.33-5.41) M/uL Hgb 9.8 L (13.1-16.8) g/dL Hct 30.0 L (39.0-49.0) % MCV 85.7 (84.0-98.0) fL MCH 28.0 L (28.2-33.3) pg MCHC 32.7 (31.7-36.0) g/dL RDW 15.3 H (11.2-14.1) % Plt Count 83 L (150-350) K/uL Neut % (Auto) 92.0 H (45.0-80.0) % Lymph % (Auto) 4.1 L (10.0-50.0) % [place] % (Auto) 3.9 (2.0-14.0) % Eos % (Auto) 0.0 (0.0-5.0) % Baso % (Auto) 0.0 (0.0-2.0) % Neut # (Auto) 3.57 (1.40-7.00) K/uL Lymph # (Auto) 0.16 L (0.50-3.50) K/uL [place] # (Auto) 0.15 (0.00-1.00) K/uL Eos # (Auto) 0.00 (0.00-0.50) K/uL Baso # (Auto) 0.00 (0.00-0.20) K/uL Sodium 145 146 H (136-145) mmol/L Potassium 4.3 4.0 (3.5-5.1) mmol/L Chloride 111 H 112 H (98-107) mmol/L Carbon Dioxide 27.2 27.2 (21.0-32.0) mmol/L Anion Gap 11.1 10.8 (7-15) meq/L BUN 35 H 36 H (7-18) mg/dL Creatinine 1.06 0.95 (0.51-1.17) mg/dL Est Cr Clr Drug Dosing 58.36 65.12 mL/min Estimated GFR (MDRD) > 60 > 60 mL/min Glucose 173 H 161 H (70-99) mg/dL Calcium 8.6 8.5 (8.5-10.1) mg/dL Magnesium 1.9 (1.8-2.4) mg/dL C-Reactive Protein 3.9 H (<=0.9) mg/dL NT-Pro-B Natriuret Pep (0-125) pg/mL 12/24/20 Range/Units 07:31 WBC (4.0-10.2) K/uL RBC (4.33-5.41) M/uL Hgb (13.1-16.8) g/dL Hct (39.0-49.0) % MCV (84.0-98.0) fL MCH (28.2-33.3) pg MCHC (31.7-36.0) g/dL RDW (11.2-14.1) % Plt Count (150-350) K/uL Neut % (Auto) (45.0-80.0) % Lymph % (Auto) (10.0-50.0) % [place] % (Auto) (2.0-14.0) % Eos % (Auto) (0.0-5.0) % Baso % (Auto) (0.0-2.0) % Neut # (Auto) (1.40-7.00) K/uL Lymph # (Auto) (0.50-3.50) K/uL [place] # (Auto) (0.00-1.00) K/uL Eos # (Auto) (0.00-0.50) K/uL Baso # (Auto) (0.00-0.20) K/uL Sodium (136-145) mmol/L Potassium (3.5-5.1) mmol/L Chloride (98-107) mmol/L Carbon Dioxide (21.0-32.0) mmol/L Anion Gap (7-15) meq/L BUN (7-18) mg/dL Creatinine (0.51-1.17) mg/dL Est Cr Clr Drug Dosing mL/min Estimated GFR (MDRD) mL/min Glucose (70-99) mg/dL Calcium (8.5-10.1) mg/dL Magnesium (1.8-2.4) mg/dL C-Reactive Protein (<=0.9) mg/dL NT-Pro-B Natriuret Pep 1564 H (0-125) pg/mL Maxi Results Last 24 Hours: Microbiology 12/22/20 00:15 Aerobic Blood Culture - Preliminary Blood - Venous - Lab Draw NO GROWTH AFTER 2 DAYS Anaerobic Blood Culture - Preliminary NO GROWTH AFTER 2 DAYS 12/22/20 00:08 Aerobic Blood Culture - Preliminary Blood - Venous NO GROWTH AFTER 2 DAYS Anaerobic Blood Culture - Preliminary NO GROWTH AFTER 2 DAYS Med Orders - Current: Current Medications Acetaminophen (Acetaminophen 325 Mg Tab) 650 mg PO Q6H PRN PRN Reason: Pain Albuterol/Ipratropium (Albuterol/Ipratropium 3.0-0.5 Mg/3 Ml Neb Soln) 3 ml NEB QID [facility]REL Last Admin: 12/24/20 07:54 Dose: 3 ml Documented by: Aripiprazole (Aripiprazole 10 Mg Tab) 5 mg PO BEDTIME [facility] Last Admin: 12/23/20 20:08 Dose: 5 mg Documented by: Ascorbic Acid (Ascorbic Acid 500 Mg Tab) 500 mg PO Q48H [facility] Last Admin: 12/22/20 08:27 Dose: 500 mg Documented by: Budesonide (Budesonide 0.5 Mg/2 Ml Neb Susp) 0.5 mg INH BID [facility] Last Admin: 12/24/20 07:57 Dose: 0.5 mg Documented by: Calcium Carbonate/Glycine (Calcium Carbonate 500 Mg Tab.Chew) 1,000 mg PO TID PRN PRN Reason: Indigestion Last Admin: 12/22/20 11:22 Dose: 1,000 mg Documented by: Doxycycline Monohydrate (Doxycycline Monohydrate 100 Mg Cap) 100 mg PO BID [facility] Last Admin: 12/24/20 07:39 Dose: 100 mg Documented by: Ferrous Sulfate (Ferrous Sulfate 325 Mg Tab) 325 mg PO Q2D [facility] Last Admin: 12/22/20 08:27 Dose: 325 mg Documented by: Furosemide (Furosemide 20 Mg Tab) 20 mg PO DAILY [facility] Last Admin: 12/24/20 07:41 Dose: 20 mg Documented by: Gabapentin (Gabapentin 300 Mg Cap) 300 mg PO BID [facility] Last Admin: 12/24/20 07:39 Dose: 300 mg Documented by: Ceftriaxone Sodium 2 gm/ (Sodium Chloride) 100 mls @ 200 mls/hr IV Q24H [facility] Last Admin: 12/23/20 23:15 Dose: 200 mls/hr Documented by: Magnesium Oxide (Magnesium Oxide 400 Mg Tab) 400 mg PO BID@1200,1800 [facility] Last Admin: 12/23/20 17:42 Dose: 400 mg Documented by: Methylprednisolone Sodium Succinate (Methylprednisolone Sodium Succinate 125 Mg/2 Ml Sdv) 125 mg IVPUSH Q6H [facility] Last Admin: 12/24/20 07:39 Dose: 125 mg Documented by: Multivitamins/Minerals (Beta-Carotene (Vitamin A) W/Vitamin C & E Plus Minerals Tab) 1 tab PO BEDTIME [facility] Last Admin: 12/23/20 20:08 Dose: 1 tab Documented by: Multivitamins/Minerals/Vitamin C (Multivitamin Tab) 1 tab PO QPM [facility] Last Admin: 12/23/20 17:42 Dose: 1 tab Documented by: Acetylcysteine [Nac] 600 Mg CapsuleOwn Med 1 cap PO BID [facility] Last Admin: 12/24/20 07:46 Dose: 1 cap Documented by: Ipratropium [ Atrovent 0.03% Nasal [place]] 30 Ml Bottle Own Med 2 spray NASBOTH BID [facility] Last Admin: 12/24/20 07:46 Dose: 2 spray Documented by: Pantoprazole Sodium (Pantoprazole 40 Mg Tab.Cr) 40 mg PO DAILY [facility] Last Admin: 12/24/20 07:40 Dose: 40 mg Documented by: Potassium Chloride (Potassium Chloride 10 Meq Tab.Er) 10 meq PO BIDMEALS@1200,1800 [facility] Last Admin: 12/23/20 17:42 Dose: 10 meq Documented by: Sertraline HCl (Sertraline 50 Mg Tab) 200 mg PO DAILY [facility] Last Admin: 12/24/20 07:40 Dose: 200 mg Documented by: Sodium Chloride (Sodium Chloride 0.9% 10 Ml Syringe) 10 ml FLUSH ASDIRECTED PRN PRN Reason: Keep Vein Open Last Admin: 12/24/20 07:58 Dose: 10 ml Documented by: Tamsulosin HCl (Tamsulosin 0.4 Mg Cap.Er) 0.4 mg PO BEDTIME [facility] Last Admin: 12/23/20 20:08 Dose: 0.4 mg Documented by: Temazepam (Temazepam 15 Mg Cap) 15 mg PO BEDTIME PRN PRN Reason: Insomnia Last Admin: 12/23/20 23:16 Dose: 15 mg Documented by: Discontinued Medications Acetaminophen (Acetaminophen 500 Mg Tab) 1,000 mg PO ONETIME ONE Stop: 12/22/20 02:08 Last Admin: 12/22/20 02:10 Dose: 1,000 mg Documented by: Albuterol (Albuterol 0.083% 2.5 Mg/3 Ml Neb Soln) 2.5 mg NEB ONETIME ONE Stop: 12/22/20 00:14 Last Admin: 12/22/20 00:26 Dose: 2.5 mg Documented by: Albuterol/Ipratropium (Albuterol/Ipratropium 3.0-0.5 Mg/3 Ml Neb Soln) 3 ml NEB ONETIME ONE Stop: 12/22/20 00:01 Last Admin: 12/22/20 00:11 Dose: 3 ml Documented by: Albuterol/Ipratropium (Albuterol/Ipratropium 3.0-0.5 Mg/3 Ml Neb Soln) 3 ml NEB Q4HRRT [facility] Last Admin: 12/23/20 12:16 Dose: 3 ml Documented by: Ceftriaxone Sodium 2 gm/ (Sodium Chloride) 100 mls @ 200 mls/hr IV ONETIME ONE Stop: 12/22/20 00:30 Last Admin: 12/22/20 00:15 Dose: 200 mls/hr Documented by: Sodium Chloride (Normal Saline) 1,000 mls @ 75 mls/hr IV ASDIRECTED [facility] Last Infusion: 12/24/20 00:37 Dose: Infused Documented by: Influenza Virus Vaccine (Flu Vacc [id number](65yr Up)/Pf 240 Mcg/0.7 Ml Syringe) 240 mcg IM .ONCE ONE Stop: 12/23/20 20:01 Last Admin: 12/23/20 20:09 Dose: 240 mcg Documented by: Methylprednisolone Sodium Succinate (Methylprednisolone Sodium Succinate 125 Mg/2 Ml Sdv) 125 mg IV ONETIME ONE Stop: 12/22/20 00:01 Last Admin: 12/22/20 00:12 Dose: 125 mg Documented by: Methylprednisolone Sodium Succinate (Methylprednisolone Sodium Succinate 125 Mg/2 Ml Sdv) 125 mg IVPUSH Q6H [facility] - Patient Data Lab Results Last 24 hrs: Laboratory Results - last 24 hr 12/23/20 12/24/20 12/24/20 Range/Units 07:26 07:31 07:31 WBC 3.9 L (4.0-10.2) K/uL RBC 3.50 L (4.33-5.41) M/uL Hgb 9.8 L (13.1-16.8) g/dL Hct 30.0 L (39.0-49.0) % MCV 85.7 (84.0-98.0) fL MCH 28.0 L (28.2-33.3) pg MCHC 32.7 (31.7-36.0) g/dL RDW 15.3 H (11.2-14.1) % Plt Count 83 L (150-350) K/uL Neut % (Auto) 92.0 H (45.0-80.0) % Lymph % (Auto) 4.1 L (10.0-50.0) % [place] % (Auto) 3.9 (2.0-14.0) % Eos % (Auto) 0.0 (0.0-5.0) % Baso % (Auto) 0.0 (0.0-2.0) % Neut # (Auto) 3.57 (1.40-7.00) K/uL Lymph # (Auto) 0.16 L (0.50-3.50) K/uL [place] # (Auto) 0.15 (0.00-1.00) K/uL Eos # (Auto) 0.00 (0.00-0.50) K/uL Baso # (Auto) 0.00 (0.00-0.20) K/uL Sodium 145 146 H (136-145) mmol/L Potassium 4.3 4.0 (3.5-5.1) mmol/L Chloride 111 H 112 H (98-107) mmol/L Carbon Dioxide 27.2 27.2 (21.0-32.0) mmol/L Anion Gap 11.1 10.8 (7-15) meq/L BUN 35 H 36 H (7-18) mg/dL Creatinine 1.06 0.95 (0.51-1.17) mg/dL Est Cr Clr Drug Dosing 58.36 65.12 mL/min Estimated GFR (MDRD) > 60 > 60 mL/min Glucose 173 H 161 H (70-99) mg/dL Calcium 8.6 8.5 (8.5-10.1) mg/dL Magnesium 1.9 (1.8-2.4) mg/dL C-Reactive Protein 3.9 H (<=0.9) mg/dL NT-Pro-B Natriuret Pep (0-125) pg/mL 12/24/20 Range/Units 07:31 WBC (4.0-10.2) K/uL RBC (4.33-5.41) M/uL Hgb (13.1-16.8) g/dL Hct (39.0-49.0) % MCV (84.0-98.0) fL MCH (28.2-33.3) pg MCHC (31.7-36.0) g/dL RDW (11.2-14.1) % Plt Count (150-350) K/uL Neut % (Auto) (45.0-80.0) % Lymph % (Auto) (10.0-50.0) % [place] % (Auto) (2.0-14.0) % Eos % (Auto) (0.0-5.0) % Baso % (Auto) (0.0-2.0) % Neut # (Auto) (1.40-7.00) K/uL Lymph # (Auto) (0.50-3.50) K/uL [place] # (Auto) (0.00-1.00) K/uL Eos # (Auto) (0.00-0.50) K/uL Baso # (Auto) (0.00-0.20) K/uL Sodium (136-145) mmol/L Potassium (3.5-5.1) mmol/L Chloride (98-107) mmol/L Carbon Dioxide (21.0-32.0) mmol/L Anion Gap (7-15) meq/L BUN (7-18) mg/dL Creatinine (0.51-1.17) mg/dL Est Cr Clr Drug Dosing mL/min Estimated GFR (MDRD) mL/min Glucose (70-99) mg/dL Calcium (8.5-10.1) mg/dL Magnesium (1.8-2.4) mg/dL C-Reactive Protein (<=0.9) mg/dL NT-Pro-B Natriuret Pep 1564 H (0-125) pg/mL Result Diagrams: 12/24/20 07:31 12/24/20 07:31 Maxi Results Last 24 hrs: Microbiology 12/22/20 00:15 Aerobic Blood Culture - Preliminary Blood - Venous - Lab Draw NO GROWTH AFTER 2 DAYS Anaerobic Blood Culture - Preliminary NO GROWTH AFTER 2 DAYS 12/22/20 00:08 Aerobic Blood Culture - Preliminary Blood - Venous NO GROWTH AFTER 2 DAYS Anaerobic Blood Culture - Preliminary NO GROWTH AFTER 2 DAYS Sepsis Event Note - Evaluation Sepsis Screening Result: No Definite Risk - Focused Exam Vital Signs: Vital Signs Temp Pulse Resp BP Pulse Ox Pulse Ox 12/24/20 07:33 36.9 C 52 L 12 135/68 94 L 12/24/20 05:46 36.6 C 67 20 120/67 93 L 12/23/20 23:00 91 L - Problem List & Annotations (1) CAP (community acquired pneumonia) SNOMED Code(s): 518350407 Code(s): J18.9 - PNEUMONIA, UNSPECIFIED ORGANISM Status: Acute Current Visit: Yes (2) COPD exacerbation SNOMED Code(s): 029510954 Code(s): J44.1 - CHRONIC OBSTRUCTIVE PULMONARY DISEASE W (ACUTE) EXACERBATION Status: Acute Current Visit: Yes Annotation/Comment:: Receiving SoluMedrol 125mg po TID along with Duonebs. Steroids been given now about 48 hours, will continue for now. No wheezing. Still quite winded with exertion. PT to see for strengthening. Will admit to [facility] for strengthening. (3) Lactic acid acidosis SNOMED Code(s): 74520269 Code(s): E87.2 - ACIDOSIS Status: Acute Current Visit: Yes Annotation/Comment:: Resolved (4) Acute and chronic respiratory failure SNOMED Code(s): 56170271 Code(s): J96.20 - ACUTE AND CHR RESP FAILURE, UNSP W HYPOXIA OR HYPERCAPNIA Status: Acute Current Visit: Yes (5) Sleep apnea in adult SNOMED Code(s): 54898598 Code(s): G47.33 - OBSTRUCTIVE SLEEP APNEA (ADULT) (PEDIATRIC) Status: Suspected Current Visit: No Annotation/Comment:: On 4 liters of oxygen at home all the time, does not have a CPAP. Unabel to asceratin wher dx came from. Will continue home oxygen. (6) Physical deconditioning SNOMED Code(s): 65199561631994 Code(s): R53.81 - OTHER MALAISE Status: Acute Current Visit: Yes (7) Weakness generalized SNOMED Code(s): 05454918 Code(s): R53.1 - WEAKNESS Status: Acute Current Visit: No Annotation/Comment:: Overall weakness adn physical deconditioning related to chronic conditions, but exacerabted by acute illness. Will admit to [facility] for stregthening. - Problem List Review Problem List Initiated/Reviewed/Updated: Yes - My Orders Last 24 Hours: My Active Orders 12/23/20 11:01 Chest 2V [CR] Routine 12/23/20 16:00 Albuterol/Ipratropium [DuoNeb 3.0-0.5 MG/3 ML] 3 ml NEB QID 12/24/20 06:08 Urinary Catheter Removal [RC] PER UNIT ROUTINE - Plan Plan:: Discharge from Acute Care and admit to Skilled SB See above
[2020-12-24] MEDS: Ascorbic Acid 500 MG Tab PO SCH (08:35)
[2020-12-24] MEDS: Ferrous Sulfate 325 MG Tab PO SCH (08:35)
[2020-12-24] MEDS: Magnesium Oxide 400 MG Tab PO SCH ×2 (11:58→17:42)
[2020-12-24] MEDS: Potassium Chloride 10 MEQ Tab.ER PO SCH ×2 (11:59→17:41)
[2020-12-24] MEDS: Multivitamin Tab PO SCH (17:41)
[2020-12-24] MEDS: ARIPiprazole 10 MG Tab PO SCH (19:14)
[2020-12-24] MEDS: Tamsulosin 0.4 MG Cap.ER PO SCH (19:15)
[2020-12-24] MEDS: Beta-Carotene (Vitamin A) w/Vitamin C & E plus Minerals Tab PO SCH (19:15)
[2020-12-25] MEDS: Temazepam 15 MG Cap PO PRN (00:03)
[2020-12-25] MEDS: methylPREDNISolone Sodium Succinate 125 MG/2 ML SDV IVPUSH SCH ×2 (00:03→08:27)
[2020-12-25] MEDS: Sodium Chloride 0.9% 10 ML Syringe FLUSH PRN (00:04)
[2020-12-25 00:29] VITALS: BP 167/99; PULSE 73
[2020-12-25] MEDS: Sertraline 50 MG Tab PO SCH (08:27)
[2020-12-25] MEDS: Furosemide 20 MG Tab PO SCH (08:28)
[2020-12-25] MEDS: Gabapentin 300 MG Cap PO SCH (08:28)
[2020-12-25] MEDS: Doxycycline Monohydrate 100 MG Cap PO SCH (08:28)
[2020-12-25] MEDS: Pantoprazole 40 MG Tab.CR PO SCH (08:28)
[2020-12-25] MEDS: IPRATROPIUM NASBOTH SCH (08:28)
[2020-12-25] MEDS: Budesonide 0.5 MG/2 ML Neb Susp INH SCH (08:29)
[2020-12-25] MEDS: Albuterol/Ipratropium 3.0-0.5 MG/3 ML Neb Soln NEB SCH (08:29)
== END 2020-12-25 09:56 | disposition swing bed (61) | DRG 193 ==
LOC: LL.ED 23:49 → LL.MS 12-22 01:15
PROVIDERS: ADMIT Physician Assistant; ATTEND Physician Assistant
DX: J18.9 Pneumonia, unspecified organism (principal); J96.21 Acute and chronic respiratory failure with hypoxia; J44.0 Chronic obstructive pulmonary disease with (acute) lower respiratory infection; J44.1 Chronic obstructive pulmonary disease with (acute) exacerbation; I13.0 Hypertensive heart and chronic kidney disease with heart failure and stage 1 through stage 4 chronic kidney disease, or unspecified chronic kidney disease; E87.2 Acidosis; G47.33 Obstructive sleep apnea (adult) (pediatric); H91.90 Unspecified hearing loss, unspecified ear; H54.7 Unspecified visual loss; I25.10 Atherosclerotic heart disease of native coronary artery without angina pectoris; N18.9 Chronic kidney disease, unspecified; I50.9 Heart failure, unspecified; N40.0 Benign prostatic hyperplasia without lower urinary tract symptoms; F41.9 Anxiety disorder, unspecified; F32.A Depression, unspecified; E87.6 Hypokalemia; E83.42 Hypomagnesemia; D63.1 Anemia in chronic kidney disease; Z98.49 Cataract extraction status, unspecified eye; Z79.899 Other long term (current) drug therapy; Z99.81 Dependence on supplemental oxygen; Z68.34 Body mass index [BMI] 34.0-34.9, adult
CPT/HCPCS: 36415; 71045; 71046; 80048; 80053; 81003; 82803; 83605; 83735; 83880; 84100; 84484; 85025; 85610; 85730; 86140; 87040; 87804; 90662; 93005; 94640; 97110-GP; 97162-GP; 97165-GO; 97530-GO; 97530-GP; A9270-GY; J0696; J2930; J7030; J7613-GY; J7620-GY; U0002

== ENCOUNTER 2020-12-24 08:47 | Inpatient (IN) | payer MEDICARE, OTHER ==
[2020-12-25] MEDS ORDERED: Sodium Chloride 0.9% 10 ML Syringe FLUSH PRN (09:51)
[2020-12-25] MEDS ORDERED: Acetaminophen 325 MG Tab PO PRN ×2 (09:51→12:00)
[2020-12-25] MEDS ORDERED: Calcium Carbonate 500 MG Tab.Chew PO PRN (09:51)
--- NOTE | 2020-12-25 10:17 | PCM.DCSUM1 ---
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 Pt. has a longstanding history of COPD and is on O2 at 4L/min at home. Pt. was admitted acute status, and was started on solu medrol 125mg every 6 hours, IV rocephin and oral doxycycline. Initially he was judiciously fluid resuscitated with IV normal saline. Lactic acid has trended down from 2.6 to 0.8. Influenza and covid were both negative. He was febrile on admission, with a tmax of 38.7. Fever was treated with acetaminophen. He has been afebrile since 12/23/2020. He has been on duoneb breathing treatments and incentive spirometry. Initially a vallejo catheter was placed, as the patient would desaturate into the 60-70% range even with minimal activity. This has since been removed, and patient is now able to ambulate to the bathroom. He still desaturates with walking, but to a lesser extent than on admission. Pt. states appetite is back to normal. He is speaking in full sentences, an improvement from admission. He is being transitioned to [facility] today for further PT/OT for treatment of deconditioning and strengthening. Diagnosis: Stroke: No - Discharge Data Discharge Date: 12/25/20 Discharge Disposition: DC/Tfer W/I Hosp To [place] [address] Condition: Fair - Referral to Home Health Primary Care Physician: PCP None - Discharge Diagnosis/Problem(s) (1) Acute and chronic respiratory failure SNOMED Code(s): 30854854 ICD Code: J96.20 - ACUTE AND CHR RESP FAILURE, UNSP W HYPOXIA OR HYPERCAPNIA Status: Acute Current Visit: No (2) CAP (community acquired pneumonia) SNOMED Code(s): 685728103 ICD Code: J18.9 - PNEUMONIA, UNSPECIFIED ORGANISM Status: Acute Current Visit: No Problem Details: CXR 12-23-2020 seems to be improved overall, no gross pneumonia noted, CHF and interstitial lung changes present. Ceftriaxone continues along with Doxycycline, but will d/c Ceftriaxone today since labs normalized and afebrile. (3) COPD exacerbation SNOMED Code(s): 931649674 ICD Code: J44.1 - CHRONIC OBSTRUCTIVE PULMONARY DISEASE W (ACUTE) EXACERBATION Status: Acute Current Visit: No Problem Details: Receiving SoluMedrol 125mg po TID along with Duonebs. Steroids been given now about 48 hours, will continue for now. No wheezing. Still quite winded with exertion. PT to see for strengthening. Will admit to [facility] for strengthening. - Patient Summary/Data Consults: Consultations 12/25/20 09:51 Consult to Case Management/Railroad Operator [CONS] Routine OT Evaluation and Treatment [CONS] Routine PT Evaluation and Treatment [CONS] Routine - Discharge Plan Home Medications: Home Meds Albuterol [Ventolin HFA] 1 puff INH Q4H PRN 02/26/15 [History] Furosemide 20 mg PO DAILY 02/26/15 [History] Lutein/Minerals/Vit A,C & E [I-Nurys] 1 each PO BEDTIME 02/26/15 [History] Multivitamin [Multi-Vitamin Daily] 1 tab PO QPM 02/26/15 [History] Pantoprazole [ProTONIX] 40 mg PO DAILY 02/26/15 [History] Potassium Chloride [Klor-Con 10] 10 meq PO BIDMEALS@1200,1800 02/26/15 [History] Sertraline [Zoloft] 200 mg PO DAILY 02/26/15 [History] ARIPiprazole [Abilify] 5 mg PO BEDTIME 04/16/18 [History] Tamsulosin [Flomax] 0.4 mg PO BEDTIME 04/16/18 [History] Albuterol/Ipratropium [DuoNeb 3.0-0.5 MG/3 ML] 3 ml INH QID 07/29/18 [History] Magnesium Oxide 400 mg PO BID@1200,1800 07/29/18 [History] Acetylcysteine [Nac] 1 cap PO BID 03/28/19 [History] Ferrous Sulfate 1 tab PO Q2D 03/28/19 [History] Gabapentin [Neurontin] 300 mg PO BID 03/28/19 [History] Acetaminophen [Tylenol] 650 mg PO Q6H PRN 07/24/19 [History] Ipratropium [Atrovent 0.03% Nasal [place]] 2 spray NASBOTH BID 07/24/19 [History] Ascorbate Calcium [Vitamin C] 500 mg PO ASDIRECTED 09/03/20 [History] Budesonide [Pulmicort] 1 vial INH BID 09/03/20 [History] - Discharge Summary/Plan Comment DC Time >30 min.: Yes Total # of Minutes for Discharge Time: 75 Discharge Summary/Plan Comment: Pt. transitioned to [facility]. He is a code 2, DNR/DNI. Regular diet. PT and OT to follow. Encourage ambulation. Continue IS. Oxygen at 4L/min. [place] was discontinued to diminish risk of CAUTI and to encourage ambulation. Keep IV until it needs to be discontinued per policy. Will continue steroids intravenously for now. Continue oral doxycycline. Approx. 1 hour 15 minutes was spent seeing the patient, changing admission status and coordinating care this AM. - General Info Date of Service: 12/25/20 - Review of Systems General: Reports: Weakness, Fatigue, Malaise HEENT: Reports: No Symptoms Pulmonary: Reports: Shortness of Breath Cardiovascular: Reports: No Symptoms Gastrointestinal: Reports: No Symptoms Genitourinary: Reports: No Symptoms Musculoskeletal: Reports: No Symptoms Skin: Reports: No Symptoms Neurological: Reports: No Symptoms Psychiatric: Reports: No Symptoms - Patient Data Med Orders - Current: Current Medications Acetaminophen (Acetaminophen 325 Mg Tab) 650 mg PO Q6H PRN PRN Reason: Pain Albuterol/Ipratropium (Albuterol/Ipratropium 3.0-0.5 Mg/3 Ml Neb Soln) 3 ml NEB QID [facility]REL Aripiprazole (Aripiprazole 10 Mg Tab) 5 mg PO BEDTIME [facility] Ascorbic Acid (Ascorbic Acid 500 Mg Tab) 500 mg PO Q48H [facility] Budesonide (Budesonide 0.5 Mg/2 Ml Neb Susp) 0.5 mg INH BID [facility] Calcium Carbonate/Glycine (Calcium Carbonate 500 Mg Tab.Chew) 1,000 mg PO TID PRN PRN Reason: Indigestion Doxycycline Monohydrate (Doxycycline Monohydrate 100 Mg Cap) 100 mg PO BID [facility] Ferrous Sulfate (Ferrous Sulfate 325 Mg Tab) 325 mg PO Q2D [facility] Furosemide (Furosemide 20 Mg Tab) 20 mg PO DAILY [facility] Gabapentin (Gabapentin 300 Mg Cap) 300 mg PO BID [facility] Magnesium Oxide (Magnesium Oxide 400 Mg Tab) 400 mg PO BID@1200,1800 [facility] Methylprednisolone Sodium Succinate (Methylprednisolone Sodium Succinate 125 Mg/2 Ml Sdv) 125 mg IVPUSH Q6H [facility] Multivitamins/Minerals (Beta-Carotene (Vitamin A) W/Vitamin C & E Plus Minerals Tab) 1 tab PO BEDTIME [facility] Multivitamins/Minerals/Vitamin C (Multivitamin Tab) 1 tab PO QPM [facility] Non-Formulary Medication (Acetylcysteine [Nac]) 1 cap PO BID [facility] Non-Formulary Medication (Ipratropium [Atrovent 0.03% Nasal [place]]) 2 spray NASBOTH BID [facility] Pantoprazole Sodium (Pantoprazole 40 Mg Tab.Cr) 40 mg PO DAILY [facility] Potassium Chloride (Potassium Chloride 10 Meq Tab.Er) 10 meq PO BIDMEALS@1200,1800 [facility] Sertraline HCl (Sertraline 50 Mg Tab) 200 mg PO DAILY [facility] Sodium Chloride (Sodium Chloride 0.9% 10 Ml Syringe) 10 ml FLUSH ASDIRECTED PRN PRN Reason: Keep Vein Open Sodium Chloride (Sodium Chloride 0.9% 10 Ml Syringe) 10 ml FLUSH ASDIRECTED PRN PRN Reason: Keep Vein Open Tamsulosin HCl (Tamsulosin 0.4 Mg Cap.Er) 0.4 mg PO BEDTIME [facility] Temazepam (Temazepam 15 Mg Cap) 15 mg PO BEDTIME PRN PRN Reason: Insomnia - Exam Quality Assessment: Reports: Supplemental Oxygen General: Reports: Alert, Oriented Lungs: Reports: Decreased Breath Sounds, Wheezing Cardiovascular: Reports: Regular Rate, Regular Rhythm GI/Abdominal Exam: Soft, Non-Tender, No Organomegaly, No Distention, No Mass (Male) Exam: Deferred Rectal (Males) Exam: Deferred Back Exam: Reports: Normal Inspection, Full Range of Motion Extremities: Normal Inspection, Normal Range of Motion, Non-Tender, No Pedal Edema, Normal Capillary Refill Skin: Reports: Warm, Dry, Intact Psy/Mental Status: Reports: Alert, Normal Affect, Normal Mood
[2020-12-25] MEDS ORDERED: Ferrous Sulfate 325 MG Tab PO SCH (10:45)
[2020-12-25] MEDS ORDERED: Non-Formulary Medication 1 Each (Ascorbate Calcium [Vitamin C] 500 MG Tablet) PO SCH (10:45)
[2020-12-25] MEDS ORDERED: Albuterol/Ipratropium 3.0-0.5 MG/3 ML Neb Soln NEB SCH (12:00)
[2020-12-25] MEDS ORDERED: Magnesium Oxide 400 MG Tab PO SCH (12:00)
[2020-12-25] MEDS ORDERED: Potassium Chloride 10 MEQ Tab.ER PO SCH (12:00)
[2020-12-25] MEDS: Magnesium Oxide 400 MG Tab PO SCH ×2 (13:08→17:54)
[2020-12-25] MEDS: methylPREDNISolone Sodium Succinate 125 MG/2 ML SDV IVPUSH SCH ×2 (13:09→19:18)
[2020-12-25] MEDS: Potassium Chloride 10 MEQ Tab.ER PO SCH ×2 (13:09→17:55)
[2020-12-25] MEDS: Albuterol/Ipratropium 3.0-0.5 MG/3 ML Neb Soln INH SCH ×3 (13:09→19:18)
[2020-12-25] MEDS: Gabapentin 300 MG Cap PO SCH (17:54)
[2020-12-25] MEDS: Doxycycline Monohydrate 100 MG Cap PO SCH (17:54)
[2020-12-25] MEDS: Multivitamin Tab PO SCH (17:55)
[2020-12-25] MEDS: IPRATROPIUM NASBOTH SCH (17:56)
[2020-12-25] MEDS: ACETYLCYSTEINE 600 MG PO SCH (17:57)
[2020-12-25] MEDS ORDERED: Non-Formulary Medication 1 Each (Multivitamin [Multi-Vitamin Daily] 1 EACH Tablet) PO SCH (18:00)
[2020-12-25] MEDS ORDERED: Non-Formulary Medication 1 Each (Ipratropium [Atrovent 0.03% Nasal Spray] 30 ML Bottle) NASBOTH SCH (18:00)
[2020-12-25] MEDS ORDERED: Gabapentin 300 MG Cap PO SCH (18:00)
[2020-12-25] MEDS ORDERED: Budesonide 0.5 MG/2 ML Neb Susp INH SCH (18:00)
[2020-12-25] MEDS: Budesonide 0.5 MG/2 ML Neb Susp INH SCH (18:23)
[2020-12-25] MEDS: Sodium Chloride 0.9% 10 ML Syringe FLUSH PRN (19:18)
[2020-12-25] MEDS: ARIPiprazole 10 MG Tab PO SCH (19:18)
[2020-12-25] MEDS: Tamsulosin 0.4 MG Cap.ER PO SCH (19:18)
[2020-12-25] MEDS: Beta-Carotene (Vitamin A) w/Vitamin C & E plus Minerals Tab PO SCH (19:18)
[2020-12-25] MEDS ORDERED: LUTEIN PO SCH (20:00)
[2020-12-25] MEDS ORDERED: Non-Formulary Medication 1 Each (Aripiprazole [Abilify] 5 MG Tablet) PO SCH (20:00)
[2020-12-25] MEDS ORDERED: MINERALS PO SCH (20:00)
[2020-12-25] MEDS ORDERED: Tamsulosin 0.4 MG Cap.ER PO SCH (20:00)
[2020-12-25] MEDS ORDERED: [UNRECOGNIZED DRUG - OTHER] PO SCH (20:00)
[2020-12-25] MEDS ORDERED: VIT A C PO SCH (20:00)
[2020-12-25] MEDS: Temazepam 15 MG Cap PO PRN (21:02)
[2020-12-26] MEDS: methylPREDNISolone Sodium Succinate 125 MG/2 ML SDV IVPUSH SCH ×5 (01:00→23:15)
[2020-12-26] MEDS: Sodium Chloride 0.9% 10 ML Syringe FLUSH PRN ×3 (01:00→23:15)
[2020-12-26] MEDS ORDERED: Non-Formulary Medication 1 Each (Sertraline [Zoloft] 100 MG Tablet) PO SCH (08:00)
[2020-12-26] MEDS ORDERED: Furosemide 20 MG Tab PO SCH (08:00)
[2020-12-26] MEDS ORDERED: Pantoprazole 40 MG Tab.CR PO SCH (08:00)
[2020-12-26] MEDS: Doxycycline Monohydrate 100 MG Cap PO SCH ×2 (08:16→18:11)
[2020-12-26] MEDS: Gabapentin 300 MG Cap PO SCH ×2 (08:16→18:10)
[2020-12-26] MEDS: Ascorbic Acid 500 MG Tab PO SCH (08:17)
[2020-12-26] MEDS: Pantoprazole 40 MG Tab.CR PO SCH (08:17)
[2020-12-26] MEDS: Sertraline 50 MG Tab PO SCH (08:17)
[2020-12-26] MEDS: Furosemide 20 MG Tab PO SCH (08:17)
[2020-12-26] MEDS: Budesonide 0.5 MG/2 ML Neb Susp INH SCH ×2 (08:18→18:11)
[2020-12-26] MEDS: Albuterol/Ipratropium 3.0-0.5 MG/3 ML Neb Soln INH SCH ×4 (08:18→19:42)
[2020-12-26] MEDS: Ferrous Sulfate 325 MG Tab PO SCH (08:20)
[2020-12-26] MEDS: IPRATROPIUM NASBOTH SCH ×2 (08:21→18:13)
[2020-12-26] MEDS: ACETYLCYSTEINE 600 MG PO SCH ×2 (08:22→18:13)
[2020-12-26] MEDS: Potassium Chloride 10 MEQ Tab.ER PO SCH ×2 (13:16→18:10)
[2020-12-26] MEDS: Magnesium Oxide 400 MG Tab PO SCH ×2 (13:17→18:10)
[2020-12-26] MEDS: Multivitamin Tab PO SCH (18:10)
[2020-12-26] MEDS: Tamsulosin 0.4 MG Cap.ER PO SCH (19:42)
[2020-12-26] MEDS: ARIPiprazole 10 MG Tab PO SCH (19:42)
[2020-12-26] MEDS: Beta-Carotene (Vitamin A) w/Vitamin C & E plus Minerals Tab PO SCH (19:42)
[2020-12-26] MEDS: Temazepam 15 MG Cap PO PRN (20:54)
[2020-12-27] MEDS: methylPREDNISolone Sodium Succinate 125 MG/2 ML SDV IVPUSH SCH ×4 (06:17→23:28)
[2020-12-27] MEDS: Sodium Chloride 0.9% 10 ML Syringe FLUSH PRN ×2 (06:17→11:59)
[2020-12-27] MEDS: Furosemide 20 MG Tab PO SCH (07:45)
[2020-12-27] MEDS: Pantoprazole 40 MG Tab.CR PO SCH (07:45)
[2020-12-27] MEDS: Sertraline 50 MG Tab PO SCH (07:45)
[2020-12-27] MEDS: Albuterol/Ipratropium 3.0-0.5 MG/3 ML Neb Soln INH SCH ×4 (07:45→19:30)
[2020-12-27] MEDS: Budesonide 0.5 MG/2 ML Neb Susp INH SCH ×2 (07:45→17:17)
[2020-12-27] MEDS: IPRATROPIUM NASBOTH SCH ×2 (07:46→17:19)
[2020-12-27] MEDS: ACETYLCYSTEINE 600 MG PO SCH ×2 (07:46→17:20)
[2020-12-27] MEDS: Gabapentin 300 MG Cap PO SCH ×2 (07:46→17:17)
[2020-12-27] MEDS: Doxycycline Monohydrate 100 MG Cap PO SCH ×2 (07:46→17:17)
[2020-12-27] MEDS: Magnesium Oxide 400 MG Tab PO SCH ×2 (11:58→17:17)
[2020-12-27] MEDS: Potassium Chloride 10 MEQ Tab.ER PO SCH ×2 (11:58→17:17)
[2020-12-27] MEDS: Multivitamin Tab PO SCH (17:17)
[2020-12-27] MEDS: ARIPiprazole 10 MG Tab PO SCH (19:30)
[2020-12-27] MEDS: Beta-Carotene (Vitamin A) w/Vitamin C & E plus Minerals Tab PO SCH (19:31)
[2020-12-27] MEDS: Tamsulosin 0.4 MG Cap.ER PO SCH (19:31)
[2020-12-27] MEDS: Temazepam 15 MG Cap PO PRN (21:19)
[2020-12-28] MEDS: methylPREDNISolone Sodium Succinate 125 MG/2 ML SDV IVPUSH SCH ×4 (05:49→23:28)
[2020-12-28] MEDS: Gabapentin 300 MG Cap PO SCH ×2 (07:19→17:09)
[2020-12-28] MEDS: Pantoprazole 40 MG Tab.CR PO SCH (07:19)
[2020-12-28] MEDS: Albuterol/Ipratropium 3.0-0.5 MG/3 ML Neb Soln INH SCH ×4 (07:19→19:29)
[2020-12-28] MEDS: Furosemide 20 MG Tab PO SCH (07:19)
[2020-12-28] MEDS: Budesonide 0.5 MG/2 ML Neb Susp INH SCH ×2 (07:19→17:08)
[2020-12-28] MEDS: Doxycycline Monohydrate 100 MG Cap PO SCH ×2 (07:19→17:08)
[2020-12-28] MEDS: Sertraline 50 MG Tab PO SCH (07:19)
[2020-12-28] MEDS: IPRATROPIUM NASBOTH SCH ×2 (07:22→17:08)
[2020-12-28] MEDS: ACETYLCYSTEINE 600 MG PO SCH ×2 (07:22→17:08)
[2020-12-28] MEDS: Ascorbic Acid 500 MG Tab PO SCH (08:46)
[2020-12-28] MEDS: Ferrous Sulfate 325 MG Tab PO SCH (08:46)
[2020-12-28] MEDS: Magnesium Oxide 400 MG Tab PO SCH ×2 (11:38→17:09)
[2020-12-28] MEDS: Potassium Chloride 10 MEQ Tab.ER PO SCH ×2 (11:38→17:08)
[2020-12-28] MEDS: Multivitamin Tab PO SCH (17:09)
[2020-12-28] MEDS: Beta-Carotene (Vitamin A) w/Vitamin C & E plus Minerals Tab PO SCH (19:29)
[2020-12-28] MEDS: Tamsulosin 0.4 MG Cap.ER PO SCH (19:29)
[2020-12-28] MEDS: ARIPiprazole 10 MG Tab PO SCH (19:29)
[2020-12-28] MEDS: Temazepam 15 MG Cap PO PRN (23:29)
[2020-12-29] MEDS: methylPREDNISolone Sodium Succinate 125 MG/2 ML SDV IVPUSH SCH ×3 (05:58→17:43)
[2020-12-29] MEDS: IPRATROPIUM NASBOTH SCH ×2 (07:12→17:47)
[2020-12-29] MEDS: Sertraline 50 MG Tab PO SCH (07:12)
[2020-12-29] MEDS: Pantoprazole 40 MG Tab.CR PO SCH (07:12)
[2020-12-29] MEDS: ACETYLCYSTEINE 600 MG PO SCH ×2 (07:12→17:47)
[2020-12-29] MEDS: Budesonide 0.5 MG/2 ML Neb Susp INH SCH ×2 (07:12→17:43)
[2020-12-29] MEDS: Doxycycline Monohydrate 100 MG Cap PO SCH ×2 (07:12→17:43)
[2020-12-29] MEDS: Gabapentin 300 MG Cap PO SCH ×2 (07:12→17:43)
[2020-12-29] MEDS: Albuterol/Ipratropium 3.0-0.5 MG/3 ML Neb Soln INH SCH ×4 (07:12→19:42)
[2020-12-29] MEDS: Furosemide 20 MG Tab PO SCH (07:12)
[2020-12-29] MEDS: Potassium Chloride 10 MEQ Tab.ER PO SCH ×2 (11:41→17:43)
[2020-12-29] MEDS: Magnesium Oxide 400 MG Tab PO SCH ×2 (11:41→17:43)
[2020-12-29] MEDS: Sodium Chloride 0.9% 10 ML Syringe FLUSH PRN ×2 (11:41→17:44)
[2020-12-29] MEDS: Multivitamin Tab PO SCH (17:43)
[2020-12-29] MEDS: Tamsulosin 0.4 MG Cap.ER PO SCH (19:42)
[2020-12-29] MEDS: Beta-Carotene (Vitamin A) w/Vitamin C & E plus Minerals Tab PO SCH (19:42)
[2020-12-29] MEDS: ARIPiprazole 10 MG Tab PO SCH (19:42)
[2020-12-30] MEDS: methylPREDNISolone Sodium Succinate 125 MG/2 ML SDV IVPUSH SCH ×4 (01:16→19:41)
[2020-12-30] MEDS: Sodium Chloride 0.9% 10 ML Syringe FLUSH PRN ×2 (06:01→19:41)
[2020-12-30] MEDS: Doxycycline Monohydrate 100 MG Cap PO SCH ×2 (07:22→19:44)
[2020-12-30] MEDS: Gabapentin 300 MG Cap PO SCH ×2 (07:22→19:44)
[2020-12-30] MEDS: Pantoprazole 40 MG Tab.CR PO SCH (07:23)
[2020-12-30] MEDS: Sertraline 50 MG Tab PO SCH (07:23)
[2020-12-30] MEDS: Albuterol/Ipratropium 3.0-0.5 MG/3 ML Neb Soln INH SCH ×4 (07:23→19:45)
[2020-12-30] MEDS: Budesonide 0.5 MG/2 ML Neb Susp INH SCH ×2 (07:23→19:45)
[2020-12-30] MEDS: Furosemide 20 MG Tab PO SCH (07:24)
[2020-12-30] MEDS: IPRATROPIUM NASBOTH SCH ×2 (07:27→19:53)
[2020-12-30] MEDS: ACETYLCYSTEINE 600 MG PO SCH ×2 (07:27→19:53)
[2020-12-30] MEDS: Ascorbic Acid 500 MG Tab PO SCH (09:18)
[2020-12-30] MEDS: Ferrous Sulfate 325 MG Tab PO SCH (09:18)
[2020-12-30] MEDS: Potassium Chloride 10 MEQ Tab.ER PO SCH ×2 (19:40→19:44)
[2020-12-30] MEDS: Magnesium Oxide 400 MG Tab PO SCH ×2 (19:40→19:42)
[2020-12-30] MEDS: Tamsulosin 0.4 MG Cap.ER PO SCH (19:42)
[2020-12-30] MEDS: Multivitamin Tab PO SCH (19:42)
[2020-12-30] MEDS: Beta-Carotene (Vitamin A) w/Vitamin C & E plus Minerals Tab PO SCH (19:42)
[2020-12-30] MEDS: ARIPiprazole 10 MG Tab PO SCH (19:44)
[2020-12-30] MEDS: Temazepam 15 MG Cap PO PRN (20:05)
[2020-12-31] MEDS: methylPREDNISolone Sodium Succinate 125 MG/2 ML SDV IVPUSH SCH ×3 (01:11→19:30)
[2020-12-31] MEDS: Sodium Chloride 0.9% 10 ML Syringe FLUSH PRN ×3 (01:12→19:29)
[2020-12-31] MEDS: Gabapentin 300 MG Cap PO SCH ×2 (08:29→17:17)
[2020-12-31] MEDS: Sertraline 50 MG Tab PO SCH (08:32)
[2020-12-31] MEDS: Pantoprazole 40 MG Tab.CR PO SCH (08:33)
[2020-12-31] MEDS: Furosemide 20 MG Tab PO SCH ×2 (08:33→11:43)
[2020-12-31] MEDS: Albuterol/Ipratropium 3.0-0.5 MG/3 ML Neb Soln INH SCH ×4 (08:34→19:29)
[2020-12-31] MEDS: ACETYLCYSTEINE 600 MG PO SCH ×2 (08:42→17:23)
[2020-12-31] MEDS: IPRATROPIUM NASBOTH SCH ×2 (08:43→17:23)
[2020-12-31] MEDS: Doxycycline Monohydrate 100 MG Cap PO SCH (08:43)
[2020-12-31] MEDS: Budesonide 0.5 MG/2 ML Neb Susp INH SCH ×2 (08:43→18:16)
[2020-12-31] MEDS: Potassium Chloride 10 MEQ Tab.ER PO SCH ×2 (11:42→17:17)
[2020-12-31] MEDS: Magnesium Oxide 400 MG Tab PO SCH ×2 (11:43→17:17)
[2020-12-31] MEDS: Multivitamin Tab PO SCH (17:17)
[2020-12-31] MEDS: ARIPiprazole 10 MG Tab PO SCH (19:29)
[2020-12-31] MEDS: Tamsulosin 0.4 MG Cap.ER PO SCH (19:29)
[2020-12-31] MEDS: Beta-Carotene (Vitamin A) w/Vitamin C & E plus Minerals Tab PO SCH (19:29)
[2020-12-31] MEDS: Temazepam 15 MG Cap PO PRN (20:52)
[2021-01-01] MEDS: IPRATROPIUM NASBOTH SCH ×2 (07:23→18:28)
[2021-01-01] MEDS: ACETYLCYSTEINE 600 MG PO SCH ×2 (07:23→18:23)
[2021-01-01] MEDS: methylPREDNISolone Sodium Succinate 125 MG/2 ML SDV IVPUSH SCH ×2 (07:23→19:38)
[2021-01-01] MEDS: Sodium Chloride 0.9% 10 ML Syringe FLUSH PRN ×2 (07:24→19:38)
[2021-01-01] MEDS: Albuterol/Ipratropium 3.0-0.5 MG/3 ML Neb Soln INH SCH ×4 (07:24→19:38)
[2021-01-01] MEDS: Furosemide 20 MG Tab PO SCH ×2 (07:24→11:43)
[2021-01-01] MEDS: Pantoprazole 40 MG Tab.CR PO SCH (07:24)
[2021-01-01] MEDS: Sertraline 50 MG Tab PO SCH (07:24)
[2021-01-01] MEDS: Gabapentin 300 MG Cap PO SCH ×2 (07:24→18:23)
[2021-01-01] MEDS: Budesonide 0.5 MG/2 ML Neb Susp INH SCH ×2 (07:27→18:24)
[2021-01-01] MEDS: Ascorbic Acid 500 MG Tab PO SCH (08:41)
[2021-01-01] MEDS: Ferrous Sulfate 325 MG Tab PO SCH (08:41)
[2021-01-01] MEDS: Potassium Chloride 10 MEQ Tab.ER PO SCH ×2 (11:43→18:23)
[2021-01-01] MEDS: Magnesium Oxide 400 MG Tab PO SCH ×2 (11:43→18:23)
[2021-01-01] MEDS: Multivitamin Tab PO SCH (18:23)
[2021-01-01] MEDS: Beta-Carotene (Vitamin A) w/Vitamin C & E plus Minerals Tab PO SCH (19:38)
[2021-01-01] MEDS: ARIPiprazole 10 MG Tab PO SCH (19:38)
[2021-01-01] MEDS: Tamsulosin 0.4 MG Cap.ER PO SCH (19:38)
[2021-01-01] MEDS: Temazepam 15 MG Cap PO PRN (20:50)
[2021-01-02] MEDS ORDERED: methylPREDNISolone Sodium Succinate 40 MG/1 ML SDV IVPUSH SCH (08:00)
[2021-01-02] MEDS ORDERED: Furosemide 20 MG Tab PO SCH (08:00)
[2021-01-02] MEDS: IPRATROPIUM NASBOTH SCH ×2 (08:04→17:04)
[2021-01-02] MEDS: ACETYLCYSTEINE 600 MG PO SCH ×2 (08:04→17:05)
[2021-01-02] MEDS: Sertraline 50 MG Tab PO SCH (08:05)
[2021-01-02] MEDS: Budesonide 0.5 MG/2 ML Neb Susp INH SCH ×2 (08:05→17:02)
[2021-01-02] MEDS: Albuterol/Ipratropium 3.0-0.5 MG/3 ML Neb Soln INH SCH ×4 (08:05→19:33)
[2021-01-02] MEDS: Pantoprazole 40 MG Tab.CR PO SCH (08:06)
[2021-01-02] MEDS: Gabapentin 300 MG Cap PO SCH ×2 (08:06→17:01)
[2021-01-02] MEDS: Sodium Chloride 0.9% 10 ML Syringe FLUSH PRN (08:07)
[2021-01-02 10:17] LABS: ANION GAP 12.5 meq/L (7-15)
[2021-01-02] MEDS ORDERED: Furosemide 40 MG Tab PO ONE ×2 (12:01→18:00)
[2021-01-02] MEDS: Potassium Chloride 10 MEQ Tab.ER PO SCH ×2 (13:12→17:01)
[2021-01-02] MEDS: Magnesium Oxide 400 MG Tab PO SCH ×2 (13:12→17:01)
--- NOTE | 2021-01-02 13:39 | PCM.SN.2 ---
- Free Text/Narrative Note: Patient to be given extra Lasix today/tomorrow due to some increased peripheral edema. Switched to oral Prednisone and will attempt to taper dose over the next few weeks. Time Documentation
[2021-01-02] MEDS: Multivitamin Tab PO SCH (17:01)
[2021-01-02] MEDS: Beta-Carotene (Vitamin A) w/Vitamin C & E plus Minerals Tab PO SCH (19:32)
[2021-01-02] MEDS: Temazepam 15 MG Cap PO PRN (19:33)
[2021-01-02] MEDS: Tamsulosin 0.4 MG Cap.ER PO SCH (19:33)
[2021-01-02] MEDS: ARIPiprazole 10 MG Tab PO SCH (19:33)
[2021-01-03] MEDS ORDERED: predniSONE 20 MG Tab PO SCH (08:00)
[2021-01-03] MEDS ORDERED: Furosemide 40 MG Tab PO SCH (08:00)
[2021-01-03] MEDS: Sertraline 50 MG Tab PO SCH (08:14)
[2021-01-03] MEDS: Pantoprazole 40 MG Tab.CR PO SCH (08:15)
[2021-01-03] MEDS: Budesonide 0.5 MG/2 ML Neb Susp INH SCH (08:15)
[2021-01-03] MEDS: Gabapentin 300 MG Cap PO SCH (08:15)
[2021-01-03] MEDS: Ascorbic Acid 500 MG Tab PO SCH (08:15)
[2021-01-03] MEDS: ACETYLCYSTEINE 600 MG PO SCH (08:28)
[2021-01-03] MEDS: Ferrous Sulfate 325 MG Tab PO SCH (08:29)
[2021-01-03] MEDS: Albuterol/Ipratropium 3.0-0.5 MG/3 ML Neb Soln INH SCH ×3 (08:29→15:40)
[2021-01-03] MEDS: IPRATROPIUM NASBOTH SCH (08:29)
[2021-01-03 08:39] VITALS: BP 135/78
[2021-01-03] MEDS: Potassium Chloride 10 MEQ Tab.ER PO SCH (11:14)
[2021-01-03] MEDS: Magnesium Oxide 400 MG Tab PO SCH (11:14)
[2021-01-03] MEDS ORDERED: Albuterol/Ipratropium 3.0-0.5 MG/3 ML Neb Soln ONE (13:47)
[2021-01-03] MEDS ORDERED: Albuterol/Ipratropium 3.0-0.5 MG/3 ML Neb Soln NEB ONE (13:55)
--- NOTE | 2021-01-03 14:33 | PCM.SN.2 ---
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 Was on 4.5L O2 NC. O2 sats noted to be low. Patient received neb and varying levels of supplemental O2 were given, nurse noted that O2 sats varied from high 50s to 80s. Currently on NRM at 10L, O2 sats high 80s. Has no other acute changes. No acute changes on physical exam. No increase in edema. Patient's lung sounds show low air movement/diminished bilaterally, small amount crackles on right which is unchanged from last exam. Verified with patient that he wishes to stay DNR/DNI and that he wants comfort care measures. Will obtain new xray/labs. Additional PO Lasix and Prednisone. Time Documentation
[2021-01-03] MEDS ORDERED: Furosemide 40 MG Tab PO ONE (15:00)
[2021-01-03 15:22] LABS: ANION GAP 13.1 meq/L (7-15)
[2021-01-03] MEDS ORDERED: Iopamidol 755 Mg/ML 100 ML Bottle IVPUSH STA (16:05)
--- NOTE | 2021-01-03 16:27 | PCM.DCSUM1 ---
Discharge Summary - Hospital Course Brief History: Patient admitted to swing bed after inpatient stay for COPD exacerbation, pneumonia, sepsis. Diagnosis: Stroke: No - Discharge Data Discharge Date: 01/03/21 Discharge Disposition: DC/Tfer to Acute Hospital 02 Condition: Poor - Referral to Home Health Primary Care Physician: PCP None - Discharge Diagnosis/Problem(s) (1) Acute and chronic respiratory failure SNOMED Code(s): 14851928 ICD Code: J96.20 - ACUTE AND CHR RESP FAILURE, UNSP W HYPOXIA OR HYPERCAPNIA Status: Acute Priority: High Problem Details: Chronic O2 dependent COPD. Acute worsening of respiratory status today with O2 sats decreasing as low as high 50s. Currently on 10L NRB mask with sats high 80s. Uncertain etiology. Differential includes PE/CHF/NC Qualifiers: Respiratory failure complication: unspecified whether with hypoxia or hypercapnia Qualified Code(s): J96.20 - Acute and chronic respiratory failure, unspecified whether with hypoxia or hypercapnia (2) D-dimer, elevated SNOMED Code(s): 575849456 ICD Code: R79.89 - OTHER SPECIFIED ABNORMAL FINDINGS OF BLOOD CHEMISTRY Status: Acute Priority: High Onset Date: 07/24/19 Problem Details: CTA ordered. Patient agreeable with scan. Does have elevated creatinine and risk of renal injury discussed with patient. He was willing to take the risk. Will give cautious IV fluids after study has been performed. (3) Coronary artery disease SNOMED Code(s): 99424021 ICD Code: I25.10 - ATHSCL HEART DISEASE OF [place] CORONARY ARTERY W/O ANG PCTRS Status: Chronic Priority: High Problem Details: No Chest pain or anginal type symptoms. Normal troponin. Continue to trend troponins to rule out ischemic event. No obvious acute ST changes noted on new EKG. Patient has RBBB/1st degree block. Unusual ST patterns noted diffusely on previous EKG performed earlier in hospitaliztion. Qualifiers: Coronary Disease-Associated Artery/Lesion type: [place] artery [place] vs. transplanted heart: [place] heart Associated angina: without angina Qualified Code(s): I25.10 - Atherosclerotic heart disease of [place] coronary artery without angina pectoris (4) CHF (congestive heart failure) SNOMED Code(s): 50668430 ICD Code: I50.9 - HEART FAILURE, UNSPECIFIED Status: Chronic Priority: High Problem Details: CHF by chest x-ray with elevated BNP. Qualifiers: Heart failure type: combined systolic and diastolic Heart failure chronicity: acute on chronic Qualified Code(s): I50.43 - Acute on chronic combined systolic (congestive) and diastolic (congestive) heart failure (5) COPD (chronic obstructive pulmonary disease) SNOMED Code(s): 85910480 ICD Code: J44.9 - CHRONIC OBSTRUCTIVE PULMONARY DISEASE, UNSPECIFIED Status: Chronic Priority: High Problem Details: On chronic home O2 Qualifiers: COPD type: emphysema Emphysema type: panlobular Qualified Code(s): J43.1 - Panlobular emphysema (6) First degree AV block SNOMED Code(s): 561600976 ICD Code: I44.0 - ATRIOVENTRICULAR BLOCK, FIRST DEGREE Status: Acute Priority: Medium Onset Date: 07/24/19 Problem Details: Newly diagnosed. Observe for now. (7) Mixed anxiety depressive disorder SNOMED Code(s): 192316614 ICD Code: F41.8 - OTHER SPECIFIED ANXIETY DISORDERS Status: Chronic Priority: Medium Problem Details: Stable by history (8) Osteoarthritis SNOMED Code(s): 406467984 ICD Code: M19.90 - UNSPECIFIED OSTEOARTHRITIS, UNSPECIFIED SITE Status: Chronic Priority: Medium Problem Details: Stable by history Qualifiers: Osteoarthritis location: multiple joints Osteoarthritis type: primary Qualified Code(s): M89.49 - Other hypertrophic osteoarthropathy, multiple sites (9) Peptic reflux disease SNOMED Code(s): 861712156 ICD Code: K21.9 - GASTRO-ESOPHAGEAL REFLUX DISEASE WITHOUT ESOPHAGITIS Status: Chronic Priority: Medium Problem Details: [place] by history (10) Physical deconditioning SNOMED Code(s): 42596499356583 ICD Code: R53.81 - OTHER [place] Status: Chronic Priority: Medium (11) Right bundle branch block (RBBB) SNOMED Code(s): 33312013 ICD Code: I45.10 - UNSPECIFIED RIGHT BUNDLE-BRANCH BLOCK Status: Chronic Priority: Medium Problem Details: Nonsymptomatic (12) Sleep apnea in adult SNOMED Code(s): 73706122 ICD Code: G47.33 - OBSTRUCTIVE SLEEP APNEA (ADULT) (PEDIATRIC) Status: Chronic Priority: Low Problem Details: On 4 liters of oxygen at home all the time, does not have a CPAP. Apneic breathing observed when patient sleeping per nursing staff. Patient would benefit from sleep study evaluation as outpatient after discharge. (13) Morbid obesity SNOMED Code(s): 667927817 ICD Code: E66.01 - MORBID (SEVERE) OBESITY DUE TO EXCESS CALORIES Status: Chronic Priority: Medium (14) Thrombocytopenia SNOMED Code(s): 438925124 ICD Code: D69.6 - THROMBOCYTOPENIA, UNSPECIFIED Status: Chronic Priority: Low - Patient Summary/Data Consults: Consultations 12/25/20 09:51 Consult to Case Management/Sink Cutter [CONS] Routine OT Evaluation and Treatment [CONS] Routine PT Evaluation and Treatment [CONS] Routine Hospital Course: Patient placed swing bed for continued OT/PT after his inpatient stay for treatment of pneumonia/sepsis/COPD exacerbation. Was doing well overall, and being weaned off the large steroid doses he received as in inpatient. There was doubt however that he would be able to return home, as his decline in ability to perform ADLs is barrier. unable to perform his cares for him. Sudden acute SOB this afternoon noted. O2 sats dropped as low as high 50s. Nursing staff ultimately able to get saturation levels to high 80s on NRB mask at 10L. Labs ordered. DDimer over 5000. Normal Troponin. WBC went from 10.8 yesterday up to 21.3. Patient afebrile however and reports no other changes/symptoms of acute infection. ProBNP 242. Creatinine worsened from 1.22 to 1.57. Differential includes acute PE, NC, along with suspected acute worsening of CHF. Patient indicated to us that he wanted to remain DNR/DNI and wanted comfort care. He did not want to be transferred to [place] or other higher level of care. He was given extra doses of Lasix/Prednisone orally but did decide he was willing to be treated for the above complaint and not be strict comfort care. Because of this he will be transferred back to Acute status and IV access re- established. IV Solumedrol, empiric antibiotic coverage, and PE scan to be ordered. notified of the above and will speak to family members regarding h ow aggressive they wish to be in regards to treatment. Please use this note for discharge note from Swing Bed and also for admission note for new Acute Bed stay. - Discharge Plan Home Medications: Home Meds Albuterol [Ventolin HFA] 1 puff INH Q4H PRN 02/26/15 [History] Furosemide 20 mg PO DAILY 02/26/15 [History] Lutein/Minerals/Vit A,C & E [I-Nurys] 1 each PO BEDTIME 02/26/15 [History] Multivitamin [Multi-Vitamin Daily] 1 tab PO QPM 02/26/15 [History] Pantoprazole [ProTONIX] 40 mg PO DAILY 02/26/15 [History] Potassium Chloride [Klor-Con 10] 10 meq PO BIDMEALS@1200,1800 02/26/15 [History] Sertraline [Zoloft] 200 mg PO DAILY 02/26/15 [History] ARIPiprazole [Abilify] 5 mg PO BEDTIME 04/16/18 [History] Tamsulosin [Flomax] 0.4 mg PO BEDTIME 04/16/18 [History] Albuterol/Ipratropium [DuoNeb 3.0-0.5 MG/3 ML] 3 ml INH QID 07/29/18 [History] Magnesium Oxide 400 mg PO BID@1200,1800 07/29/18 [History] Acetylcysteine [Nac] 1 cap PO BID 03/28/19 [History] Ferrous Sulfate 1 tab PO Q2D 03/28/19 [History] Gabapentin [Neurontin] 300 mg PO BID 03/28/19 [History] Acetaminophen [Tylenol] 650 mg PO Q6H PRN 07/24/19 [History] Ipratropium [Atrovent 0.03% Nasal [place]] 2 spray NASBOTH BID 07/24/19 [History] Ascorbate Calcium [Vitamin C] 500 mg PO ASDIRECTED 09/03/20 [History] Budesonide [Pulmicort] 1 vial INH BID 09/03/20 [History] - Discharge Summary/Plan Comment DC Time >30 min.: No Total # of Minutes for Discharge Time: 90 - General Info Date of Service: 01/03/21 Admission Dx/Problem (Free Text: Sudden SOB in patient with CHF/COPD, recent pneumonia and sepsis Functional Status: Reports: Pain Controlled, Tolerating Diet, Urinating, New Symptoms (sudden SOB increase) - Review of Systems General: Reports: Weakness (chronic/unchanged). Denies: Fever, Chills, Night Sweats HEENT: Reports: No Symptoms Pulmonary: Reports: Shortness of Breath. Denies: Pleuritic Chest Pain, Cough, Sputum, Hemoptysis, Wheezing Cardiovascular: Reports: Dyspnea on Exertion. Denies: Chest Pain, Lightheadedness Gastrointestinal: Reports: No Symptoms Genitourinary: Reports: No Symptoms Musculoskeletal: Reports: Other (no acute changes from baseline) Skin: Reports: Other (no acute changes) Neurological: Reports: Difficulty Walking (chronic), Weakness (chronic). Denies: Dizziness, Headache, Trouble Speaking, Change in Speech Psychiatric: Reports: No Symptoms - Patient Data Vitals - Most Recent: Last Vital Signs Temp 36.1 C 01/03/21 08:00 Pulse 77 01/03/21 08:00 Resp 20 01/03/21 08:00 BP 135/78 01/03/21 08:00 Pulse Ox 99 01/03/21 08:00 Weight - Most Recent: 135.125 kg I&O - Last 24 hours: Intake & Output 01/03/21 01/03/21 01/03/21 06:59 14:59 22:59 Intake Total 420 Output Total 500 1400 Balance -500 -980 Lab Results - Last 24 hrs: Laboratory Results - last 24 hr 01/03/21 01/03/21 01/03/21 Range/Units 14:45 14:45 14:45 WBC 21.3 H (4.0-10.2) K/uL RBC 4.53 (4.33-5.41) M/uL Hgb 12.8 L D (13.1-16.8) g/dL Hct 39.7 (39.0-49.0) % MCV 87.6 (84.0-98.0) fL MCH 28.3 (28.2-33.3) pg MCHC 32.2 (31.7-36.0) g/dL RDW 16.8 H (11.2-14.1) % Plt Count 88 L (150-350) K/uL Neut % (Auto) 93.6 H (45.0-80.0) % Lymph % (Auto) 1.4 L (10.0-50.0) % Bee % (Auto) 4.8 (2.0-14.0) % Eos % (Auto) 0.1 (0.0-5.0) % Baso % (Auto) 0.1 (0.0-2.0) % Neut # (Auto) 19.91 H (1.40-7.00) K/uL Lymph # (Auto) 0.30 L (0.50-3.50) K/uL Bee # (Auto) 1.03 H (0.00-1.00) K/uL Eos # (Auto) 0.03 (0.00-0.50) K/uL Baso # (Auto) 0.02 (0.00-0.20) K/uL D-Dimer, Quantitative > 5000 H (0-400) ng/mL Sodium 146 H (136-145) mmol/L Potassium 4.6 (3.5-5.1) mmol/L Chloride 105 (98-107) mmol/L Carbon Dioxide 32.5 H (21.0-32.0) mmol/L Anion Gap 13.1 (7-15) meq/L BUN 47 H (7-18) mg/dL Creatinine 1.57 H (0.51-1.17) mg/dL Est Cr Clr Drug Dosing 40.68 mL/min Estimated GFR (MDRD) 43 mL/min Glucose 226 H (70-99) mg/dL Calcium 8.9 (8.5-10.1) mg/dL Total Bilirubin 1.1 H (0.2-1.0) mg/dL AST 33 (15-37) U/L ALT 78 (12-78) U/L Alkaline Phosphatase 237 H (46-116) IU/L Troponin I High Sens 24 (<=76) ng/L NT-Pro-B Natriuret Pep 343 H (0-125) pg/mL Total Protein 6.6 (6.4-8.2) g/dL Albumin 3.3 L (3.4-5.0) g/dL Med Orders - Current: Current Medications Discontinued Medications Acetaminophen (Acetaminophen 325 Mg Tab) 650 mg PO Q6H PRN PRN Reason: Pain Last Admin: 12/30/20 19:43 Dose: 650 mg Documented by: Albuterol/Ipratropium (Albuterol/Ipratropium 3.0-0.5 Mg/3 Ml Neb Soln) 3 ml INH QID DARREL Last Admin: 01/03/21 15:40 Dose: 3 ml Documented by: Albuterol/Ipratropium (Albuterol/Ipratropium 3.0-0.5 Mg/3 Ml Neb Soln) Confirm Administered Dose 3 ml .ROUTE .STK-MED ONE Stop: 01/03/21 13:48 Last Admin: 01/03/21 14:00 Dose: 3 ml Documented by: Albuterol/Ipratropium (Albuterol/Ipratropium 3.0-0.5 Mg/3 Ml Neb Soln) 3 ml NEB ONETIME ONE Stop: 01/03/21 13:56 Last Admin: 01/03/21 15:08 Dose: Not Given Documented by: Aripiprazole (Aripiprazole 10 Mg Tab) 5 mg PO BEDTIME [facility] Last Admin: 01/02/21 19:33 Dose: 5 mg Documented by: Ascorbic Acid (Ascorbic Acid 500 Mg Tab) 500 mg PO Q48H [facility] Last Admin: 01/03/21 08:15 Dose: 500 mg Documented by: Budesonide (Budesonide 0.5 Mg/2 Ml Neb Susp) 0.5 mg INH BID [facility] Last Admin: 01/03/21 08:15 Dose: 0.5 mg Documented by: Calcium Carbonate/Glycine (Calcium Carbonate 500 Mg Tab.Chew) 1,000 mg PO TID PRN PRN Reason: Indigestion Doxycycline Monohydrate (Doxycycline Monohydrate 100 Mg Cap) 100 mg PO BID [facility] Stop: 12/31/20 08:01 Last Admin: 12/31/20 08:43 Dose: 100 mg Documented by: Ferrous Sulfate (Ferrous Sulfate 325 Mg Tab) 325 mg PO Q2D [facility] Last Admin: 01/03/21 08:29 Dose: 325 mg Documented by: Furosemide (Furosemide 20 Mg Tab) 20 mg PO DAILY [facility] Last Admin: 12/30/20 07:24 Dose: Not Given Documented by: Furosemide (Furosemide 20 Mg Tab) 20 mg PO BIDDIURETIC DARREL Stop: 01/01/21 12:01 Last Admin: 01/01/21 11:43 Dose: 20 mg Documented by: Furosemide (Furosemide 20 Mg Tab) 20 mg PO DAILY [facility] Last Admin: 01/02/21 08:06 Dose: 20 mg Documented by: Furosemide (Furosemide 40 Mg Tab) 40 mg PO ONETIME ONE Stop: 01/02/21 12:02 Last Admin: 01/02/21 13:12 Dose: 40 mg Documented by: Furosemide (Furosemide 40 Mg Tab) 40 mg PO ONETIME ONE Stop: 01/02/21 18:01 Last Admin: 01/02/21 17:05 Dose: 40 mg Documented by: Furosemide (Furosemide 40 Mg Tab) 40 mg PO DAILY [facility] Last Admin: 01/03/21 08:14 Dose: 40 mg Documented by: Furosemide (Furosemide 40 Mg Tab) 80 mg PO ONETIME ONE Stop: 01/03/21 15:01 Last Admin: 01/03/21 15:36 Dose: 80 mg Documented by: Gabapentin (Gabapentin 300 Mg Cap) 300 mg PO BID [facility] Last Admin: 01/03/21 08:15 Dose: 300 mg Documented by: Iopamidol (Iopamidol 755 Mg/Ml 100 Ml Bottle) 100 ml IVPUSH ONETIME STA Stop: 01/03/21 16:06 Magnesium Oxide (Magnesium Oxide 400 Mg Tab) 400 mg PO BID@1200,1800 [facility] Last Admin: 01/03/21 11:14 Dose: 400 mg Documented by: Methylprednisolone Sodium Succinate (Methylprednisolone Sodium Succinate 125 Mg/2 Ml Sdv) 125 mg IVPUSH Q6H [facility] Last Admin: 12/26/20 08:18 Dose: 125 mg Documented by: Methylprednisolone Sodium Succinate (Methylprednisolone Sodium Succinate 125 Mg/2 Ml Sdv) 80 mg IVPUSH Q6H [facility] Last Admin: 12/31/20 06:19 Dose: 80 mg Documented by: Methylprednisolone Sodium Succinate (Methylprednisolone Sodium Succinate 125 Mg/2 Ml Sdv) 60 mg IVPUSH Q12HR DARREL Stop: 01/01/21 20:01 Last Admin: 01/01/21 19:38 Dose: 60 mg Documented by: Methylprednisolone Sodium Succinate (Methylprednisolone Sodium Succinate 40 Mg/1 Ml Sdv) 40 mg IVPUSH DAILY [facility] Last Admin: 01/02/21 08:06 Dose: 40 mg Documented by: Multivitamins/Minerals (Beta-Carotene (Vitamin A) W/Vitamin C & E Plus Minerals Tab) 1 tab PO BEDTIME [facility] Last Admin: 01/02/21 19:32 Dose: 1 tab Documented by: Multivitamins/Minerals/Vitamin C (Multivitamin Tab) 1 tab PO QPM [facility] Last Admin: 01/02/21 17:01 Dose: 1 tab Documented by: Acetylcysteine [Nac] (600mg Caps) 1 cap PO BID [facility] Last Admin: 01/03/21 08:28 Dose: 1 cap Documented by: Ipratropium [ Atrovent 0.03% Nasal [place]] 2 spray NASBOTH BID [facility] Last Admin: 01/03/21 08:29 Dose: 2 spray Documented by: Pantoprazole Sodium (Pantoprazole 40 Mg Tab.Cr) 40 mg PO DAILY [facility] Last Admin: 01/03/21 08:15 Dose: 40 mg Documented by: Potassium Chloride (Potassium Chloride 10 Meq Tab.Er) 10 meq PO BIDMEALS@1200,1800 [facility] Last Admin: 01/03/21 11:14 Dose: 10 meq Documented by: Prednisone (Prednisone 20 Mg Tab) 40 mg PO WITHBREAKFAST DARREL Stop: 01/06/21 08:01 Last Admin: 01/03/21 08:14 Dose: 40 mg Documented by: Prednisone (Prednisone 20 Mg Tab) 20 mg PO WITHBREAKFAST DARREL Stop: 01/11/21 08:01 Prednisone (Prednisone 20 Mg Tab) 10 mg PO WITHBREAKFAST DARREL Stop: 01/16/21 08:01 Prednisone (Prednisone 20 Mg Tab) 40 mg PO WITHBREAKFAST DARREL Prednisone (Prednisone 20 Mg Tab) 60 mg PO ONETIME ONE Stop: 01/11/21 14:35 Sertraline HCl (Sertraline 50 Mg Tab) 200 mg PO DAILY [facility] Last Admin: 01/03/21 08:14 Dose: 200 mg Documented by: Sodium Chloride (Sodium Chloride 0.9% 10 Ml Syringe) 10 ml FLUSH ASDIRECTED PRN PRN Reason: Keep Vein Open Last Admin: 01/02/21 08:07 Dose: 10 ml Documented by: Sodium Chloride (Sodium Chloride 0.9% 10 Ml Syringe) 10 ml FLUSH ASDIRECTED PRN PRN Reason: Keep Vein Open Tamsulosin HCl (Tamsulosin 0.4 Mg Cap.Er) 0.4 mg PO BEDTIME [facility] Last Admin: 01/02/21 19:33 Dose: 0.4 mg Documented by: Temazepam (Temazepam 15 Mg Cap) 15 mg PO BEDTIME PRN PRN Reason: Insomnia Last Admin: 01/02/21 19:33 Dose: 15 mg Documented by: - Exam Quality Assessment: Reports: Supplemental Oxygen General: Reports: Alert, Oriented, Cooperative, Moderate Distress HEENT: Reports: Pupils Equal, Pupils Reactive, EOMI, Mucous Membr. Moist/[place] Neck: Reports: Supple Lungs: Reports: Decreased Breath Sounds, Rales, Other (minimal airflow bilateral lungs/some rhonchi. ). Denies: Stridor, Wheezing Cardiovascular: Reports: Regular Rate, Regular Rhythm GI/Abdominal Exam: Soft, Other (morbidly obese) (Male) Exam: Deferred Rectal (Males) Exam: Deferred Back Exam: Denies: CVA Tenderness (L), CVA Tenderness (R), Muscle Spasm Extremities: Non-Tender, Normal Capillary Refill, Pedal Edema Skin: Reports: Warm, Dry Neurological: Reports: No New Focal Deficit Psy/Mental Status: Reports: Alert, Anxious #1 Interpretation EKG Date: 01/03/21 Time: 14:40 Rhythm: Other (sinus tach/1st degree block) Rate (Beats/Min): 105 [place]: Normal P-Wave: Present QRS: RBBB ST-T: Other (ST morphology unusual throughout) QT: Normal Comparison: Other: (No signficant change from 12/22 other than elevated rate)
[2021-01-04] MEDS ORDERED: predniSONE 20 MG Tab PO SCH (08:00)
[2021-01-04 10:15] VITALS: PULSE 120
[2021-01-06] MEDS ORDERED: predniSONE 20 MG Tab PO SCH (08:00)
[2021-01-11] MEDS ORDERED: predniSONE 20 MG Tab PO SCH (08:00)
[2021-01-11] MEDS ORDERED: predniSONE 20 MG Tab PO ONE (14:34)
== END 2021-01-03 16:04 | DRG 947 ==
LOC: LL.MS 12-25 09:59
PROVIDERS: ADMIT Nurse Practitioner Family; ATTEND Nurse Practitioner Family
DX: R53.1 Weakness (principal); J96.20 Acute and chronic respiratory failure, unspecified whether with hypoxia or hypercapnia; I50.43 Acute on chronic combined systolic (congestive) and diastolic (congestive) heart failure; R79.89 Other specified abnormal findings of blood chemistry; I25.10 Atherosclerotic heart disease of native coronary artery without angina pectoris; Z66 Do not resuscitate; J43.1 Panlobular emphysema; I44.0 Atrioventricular block, first degree; F41.8 Other specified anxiety disorders; M89.49 Other hypertrophic osteoarthropathy, multiple sites; K21.9 Gastro-esophageal reflux disease without esophagitis; R53.81 Other malaise; I45.10 Unspecified right bundle-branch block; G47.33 Obstructive sleep apnea (adult) (pediatric); E66.01 Morbid (severe) obesity due to excess calories; D69.6 Thrombocytopenia, unspecified; Z79.899 Other long term (current) drug therapy
CPT/HCPCS: 36415; 71045; 71275; 80053; 81001; 83605; 83880; 84484; 85025; 85379; 93005; 94640; 97110-GO; 97110-GP; 97162-GP; 97165-GO; 97530-GO; 97530-GP; 97535-GO; A9270-GY; J2920; J2930; J7512; J7620-GY

== ENCOUNTER 2021-01-03 16:10 | Inpatient (IN) | payer MEDICARE, OTHER ==
[2021-01-03] MEDS ORDERED: Albuterol 6.7 GM Inhaler INH PRN (17:05)
[2021-01-03] MEDS ORDERED: Acetaminophen 325 MG Tab PO PRN (17:05)
[2021-01-03] MEDS ORDERED: Furosemide 40 MG/4 ML VIAL IVPUSH ONE (17:08)
[2021-01-03] MEDS: Iopamidol 755 Mg/ML 100 ML Bottle IVPUSH ONE (17:10)
[2021-01-03] MEDS ORDERED: Sodium Chloride 0.9% 500 ML IV SCH (17:25)
[2021-01-03] MEDS: Azithromycin 500 MG in Sodium Chloride 0.9% 250 ML IV SCH (18:01)
[2021-01-03] MEDS: Gabapentin 300 MG Cap PO SCH (18:05)
[2021-01-03] MEDS: Budesonide 0.5 MG/2 ML Neb Susp INH SCH (18:05)
[2021-01-03] MEDS: Magnesium Oxide 400 MG Tab PO SCH (18:05)
[2021-01-03] MEDS: methylPREDNISolone Sodium Succinate 125 MG/2 ML SDV IVPUSH SCH ×2 (18:06→21:16)
[2021-01-03] MEDS: cefTRIAXone 1 GM in Sodium Chloride 0.9% 100 ML IV ONE (18:07)
[2021-01-03] MEDS: Multivitamin Tab PO SCH (18:10)
[2021-01-03] MEDS: ACETYLCYSTEINE 600 MG PO SCH (18:11)
[2021-01-03] MEDS: Potassium Chloride 10 MEQ Tab.ER PO SCH (18:11)
[2021-01-03] MEDS: IPRATROPIUM NASBOTH SCH (18:11)
[2021-01-03] MEDS ORDERED: Sodium Chloride 0.9% 10 ML Syringe FLUSH SCH (19:15)
[2021-01-03 19:46] LABS: CORONAVIRUS COVID-19 AG NEGATIVE (NEGATIVE)
[2021-01-03 20:11] VITALS: BP 93/56
[2021-01-03] MEDS: Albuterol/Ipratropium 3.0-0.5 MG/3 ML Neb Soln INH SCH (20:12)
[2021-01-03] MEDS: ARIPiprazole 10 MG Tab PO SCH (20:13)
[2021-01-03] MEDS: Beta-Carotene (Vitamin A) w/Vitamin C & E plus Minerals Tab PO SCH (20:13)
[2021-01-03] MEDS: Tamsulosin 0.4 MG Cap.ER PO SCH (20:13)
[2021-01-03 20:30] VITALS: PULSE 110
[2021-01-03] MEDS ORDERED: Vancomycin 2 GM in Sodium Chloride 0.9% 500 ML IV SCH (20:45)
--- NOTE | 2021-01-03 21:04 | PCM.DCSUM1 ---
Discharge Summary - Hospital Course Brief History: Patient transferred back to inpatient today after showing signs of acute respiratory distress/hypoxemia. Admitted earlier this month for pneumonia/sepsis/CHF/COPD exacerbation. Improved. Discharged to swing bed for strengthening/PT/OT prior to today's sudden decompensation. Diagnosis: Stroke: No - Discharge Data Discharge Date: 01/03/21 Discharge Disposition: DC/Tfer to Acute Hospital 02 Condition: Critical - Referral to Home Health Primary Care Physician: PCP None - Discharge Diagnosis/Problem(s) (1) Acute and chronic respiratory failure SNOMED Code(s): 09747543 ICD Code: J96.20 - ACUTE AND CHR RESP FAILURE, UNSP W HYPOXIA OR HYPERCAPNIA Status: Acute Priority: High Current Visit: Yes Problem Details: Chronic O2 dependent COPD. Acute worsening of respiratory status today with O2 sats decreasing as low as high 50s. Currently on 10L NRB mask with sats in 90s. Uncertain etiology. Differential includes PE/CHF/KS/infection Qualifiers: (2) COPD exacerbation SNOMED Code(s): 243155910 ICD Code: J44.1 - CHRONIC OBSTRUCTIVE PULMONARY DISEASE W (ACUTE) EXACERBATION Status: Chronic Priority: High Current Visit: Yes Problem Details: Receiving SoluMedrol 125mg along with Duonebs. (3) D-dimer, elevated SNOMED Code(s): 356063329 ICD Code: R79.89 - OTHER SPECIFIED ABNORMAL FINDINGS OF BLOOD CHEMISTRY Status: Chronic Priority: High Current Visit: Yes Onset Date: 07/24/19 Problem Details: CTA ordered. Patient agreeable with scan. Does have elevated creatinine and risk of renal injury discussed with patient. He was willing to take the risk. Patient's movements affected quality of study. No obvious large PE. Noted to have patchy ground glass infiltrates/interstitial dz/cirrhosis/large spleen. (4) CHF (congestive heart failure) SNOMED Code(s): 57754097 ICD Code: I50.9 - HEART FAILURE, UNSPECIFIED Status: Chronic Priority: High Current Visit: Yes Problem Details: CHF by chest x-ray with elevated BNP. Qualifiers: Heart failure type: unspecified Heart failure chronicity: unspecified Qualified Code(s): I50.9 - Heart failure, unspecified (5) First degree AV block SNOMED Code(s): 148960803 ICD Code: I44.0 - ATRIOVENTRICULAR BLOCK, FIRST DEGREE Status: Chronic Priority: Medium Current Visit: No Onset Date: 07/24/19 (6) COPD (chronic obstructive pulmonary disease) SNOMED Code(s): 14728765 ICD Code: J44.9 - CHRONIC OBSTRUCTIVE PULMONARY DISEASE, UNSPECIFIED Status: Chronic Priority: High Current Visit: Yes Problem Details: On chronic home O2 Qualifiers: COPD type: COPD with acute exacerbation Qualified Code(s): J44.1 - Chronic obstructive pulmonary disease with (acute) exacerbation (7) Coronary artery disease SNOMED Code(s): 02548721 ICD Code: I25.10 - ATHSCL HEART DISEASE OF [place] CORONARY ARTERY W/O ANG PCTRS Status: Chronic Priority: High Current Visit: Yes Problem Details: No Chest pain or anginal type symptoms. Normal troponin. Continue to trend troponins to rule out ischemic event. No obvious acute ST changes noted on new EKG. Patient has RBBB/1st degree block. Unusual ST patterns noted diffusely on previous EKG performed earlier in hospitaliztion. Qualifiers: (8) Mixed anxiety depressive disorder SNOMED Code(s): 894602122 ICD Code: F41.8 - OTHER SPECIFIED ANXIETY DISORDERS Status: Chronic Priority: Medium Current Visit: No Problem Details: Stable by history (9) Morbid obesity SNOMED Code(s): 022324339 ICD Code: E66.01 - MORBID (SEVERE) OBESITY DUE TO EXCESS CALORIES Status: Chronic Priority: Medium Current Visit: Yes (10) Osteoarthritis SNOMED Code(s): 984331702 ICD Code: M19.90 - UNSPECIFIED OSTEOARTHRITIS, UNSPECIFIED SITE Status: Chronic Priority: Medium Current Visit: No Problem Details: Stable by history (11) Peptic reflux disease SNOMED Code(s): 844342909 ICD Code: K21.9 - GASTRO-ESOPHAGEAL REFLUX DISEASE WITHOUT ESOPHAGITIS Status: Chronic Priority: Medium Current Visit: No Problem Details: Stable by history (12) Physical deconditioning SNOMED Code(s): 00627861168190 ICD Code: R53.81 - OTHER MALAISE Status: Chronic Priority: Medium Current Visit: No (13) Renal insufficiency SNOMED Code(s): 402692071, 337173648 ICD Code: N28.9 - DISORDER OF KIDNEY AND URETER, UNSPECIFIED Status: Chronic Priority: Medium Current Visit: Yes (14) Right bundle branch block (RBBB) SNOMED Code(s): 59112154 ICD Code: I45.10 - UNSPECIFIED RIGHT BUNDLE-BRANCH BLOCK Status: Chronic Priority: Low Current Visit: Yes Problem Details: Nonsymptomatic (15) Sleep apnea in adult SNOMED Code(s): 28601802 ICD Code: G47.33 - OBSTRUCTIVE SLEEP APNEA (ADULT) (PEDIATRIC) Status: Chronic Priority: Medium Current Visit: Yes Problem Details: On 4 liters of oxygen at home all the time, does not have a CPAP. Apneic breathing observed when patient sleeping per nursing staff. Patient would benefit from sleep study evaluation as outpatient after discharge. (16) Thrombocytopenia SNOMED Code(s): 585882704 ICD Code: D69.6 - THROMBOCYTOPENIA, UNSPECIFIED Status: Chronic Priority: Low Current Visit: No (17) Weakness generalized SNOMED Code(s): 15643532 ICD Code: R53.1 - WEAKNESS Status: Chronic Current Visit: No Problem Details: Overall weakness adn physical deconditioning related to chronic conditions, but exacerabted by acute illness. Will admit to [facility] for str egthening. - Patient Summary/Data Hospital Course: Patient switched back to acute bed after sudden development of SOB this afternoon. Improved on 10L nonrebreather mask. No PE noted on CT as noted above. Normal UA yesterday. No fevers over swing bed stay. WBC noted to jump to over 20,000 today. Lactic 3.8. Cannot rule out new pneumonia on top of CH F/COPD exacerbation. IV Solumedrol/Zithromax/Rocephin given initially. Vanco added. Lasix given with caution due to patient's renal impairment and recent PE study with IV contrast in light of poor creatinine. Mild elevation of proBNP. No increase in peripheral edema noted compared to earlier in patient's stay. High sensitivity troponin trending upwards but still within normal limits. No obviou s acute ST changes noted on new EKG when compared to one obtained Dec 22 other than rate increase. Initially patient refused transfer to [place] and wanted to stay locally. Family and patient discussed situation and made decision to be willing to be transferred to [place]. [facility] contacted by no available bed tonight. Probable bed tomorrow. Family ok'd us calling [place] and accepted patient for transfer. Patient is DNR/DNI. - Discharge Plan Home Medications: Home Meds Albuterol [Ventolin HFA] 1 puff INH Q4H PRN 02/26/15 [History] Furosemide 20 mg PO DAILY 02/26/15 [History] Lutein/Minerals/Vit A,C & E [I-Nurys] 1 each PO BEDTIME 02/26/15 [History] Multivitamin [Multi-Vitamin Daily] 1 tab PO QPM 02/26/15 [History] Pantoprazole [ProTONIX] 40 mg PO DAILY 02/26/15 [History] Potassium Chloride [Klor-Con 10] 10 meq PO BIDMEALS@1200,1800 02/26/15 [History] Sertraline [Zoloft] 200 mg PO DAILY 02/26/15 [History] ARIPiprazole [Abilify] 5 mg PO BEDTIME 04/16/18 [History] Tamsulosin [Flomax] 0.4 mg PO BEDTIME 04/16/18 [History] Albuterol/Ipratropium [DuoNeb 3.0-0.5 MG/3 ML] 3 ml INH QID 07/29/18 [History] Magnesium Oxide 400 mg PO BID@1200,1800 07/29/18 [History] Acetylcysteine [Nac] 1 cap PO BID 03/28/19 [History] Ferrous Sulfate 1 tab PO Q2D 03/28/19 [History] Gabapentin [Neurontin] 300 mg PO BID 03/28/19 [History] Acetaminophen [Tylenol] 650 mg PO Q6H PRN 07/24/19 [History] Ipratropium [Atrovent 0.03% Nasal [place]] 2 spray NASBOTH BID 07/24/19 [History] Ascorbate Calcium [Vitamin C] 500 mg PO Q2D 09/03/20 [History] Budesonide [Pulmicort] 0.5 mg INH BID 09/03/20 [History] - Discharge Summary/Plan Comment DC Time >30 min.: No Total # of Minutes for Discharge Time: 60 - Patient Data Vitals - Most Recent: Last Vital Signs Temp 37.4 C 01/03/21 19:34 Pulse 110 H 01/03/21 20:29 Resp 34 H 01/03/21 19:34 BP 93/56 L 01/03/21 19:34 Pulse Ox 95 01/03/21 19:34 Weight - Most Recent: 134.717 kg I&O - Last 24 hours: Intake & Output 01/03/21 01/03/21 01/03/21 06:59 14:59 22:59 Intake Total 650 Output Total 400 Balance 250 Lab Results - Last 24 hrs: Laboratory Results - last 24 hr 01/03/21 01/03/21 Range/Units 19:05 19:20 Troponin I High Sens 73 (<=76) ng/L SARS-CoV-2 Ag (Rapid) Negative (NEGATIVE) Med Orders - Current: Current Medications Acetaminophen (Acetaminophen 325 Mg Tab) 650 mg PO Q6H PRN PRN Reason: Pain Albuterol (Albuterol 6.7 Gm Inhaler) 0 gm INH Q4H PRN PRN Reason: Shortness of Breath Albuterol/Ipratropium (Albuterol/Ipratropium 3.0-0.5 Mg/3 Ml Neb Soln) 3 ml INH QID [facility] Last Admin: 01/03/21 20:12 Dose: 3 ml Documented by: Aripiprazole (Aripiprazole 10 Mg Tab) 5 mg PO BEDTIME [facility] Last Admin: 01/03/21 20:13 Dose: 5 mg Documented by: Ascorbic Acid (Ascorbic Acid 500 Mg Tab) 500 mg PO Q2D [facility] Budesonide (Budesonide 0.5 Mg/2 Ml Neb Susp) 0.5 mg INH BID [facility] Last Admin: 01/03/21 18:05 Dose: 0.5 mg Documented by: Ferrous Sulfate (Ferrous Sulfate 325 Mg Tab) 325 mg PO Q2D [facility] Furosemide (Furosemide 20 Mg Tab) 20 mg PO DAILY [facility] Gabapentin (Gabapentin 300 Mg Cap) 300 mg PO BID [facility] Last Admin: 01/03/21 18:05 Dose: 300 mg Documented by: Azithromycin 500 mg/ Sodium (Chloride) 250 mls @ 250 mls/hr IV Q24H [facility] Last Admin: 01/03/21 18:01 Dose: 250 mls/hr Documented by: Sodium Chloride (Normal Saline) 500 mls @ 125 mls/hr IV ASDIRECTED [facility] Vancomycin HCl 2 gm/ Sodium (Chloride) 500 mls @ 165 mls/hr IV Q24H [facility] Magnesium Oxide (Magnesium Oxide 400 Mg Tab) 400 mg PO BID@1200,1800 [facility] Last Admin: 01/03/21 18:05 Dose: 400 mg Documented by: Methylprednisolone Sodium Succinate (Methylprednisolone Sodium Succinate 125 Mg/2 Ml Sdv) 125 mg IVPUSH Q12H [facility] Multivitamins/Minerals (Beta-Carotene (Vitamin A) W/Vitamin C & E Plus Minerals Tab) 1 tab PO BEDTIME [facility] Last Admin: 01/03/21 20:13 Dose: 1 tab Documented by: Multivitamins/Minerals/Vitamin C (Multivitamin Tab) 1 tab PO QPM [facility] Last Admin: 01/03/21 18:10 Dose: 1 tab Documented by: Acetylcysteine [Nac] 600 Mg Capsule Pt Own 1 cap PO BID [facility] Last Admin: 01/03/21 18:11 Dose: 1 cap Documented by: Ipratropium [ Atrovent 0.03% Nasal [place]] 30 Ml Bottle Pt Own 2 spray NASBOTH BID [facility] Last Admin: 01/03/21 18:11 Dose: 2 spray Documented by: Pantoprazole Sodium (Pantoprazole 40 Mg Tab.Cr) 40 mg PO DAILY [facility] Potassium Chloride (Potassium Chloride 10 Meq Tab.Er) 10 meq PO BIDMEALS@1200,1800 [facility] Last Admin: 01/03/21 18:11 Dose: 10 meq Documented by: Sertraline HCl (Sertraline 50 Mg Tab) 200 mg PO DAILY [facility] Sodium Chloride (Sodium Chloride 0.9% 10 Ml Syringe) 10 ml FLUSH ASDIRECTED [facility] Tamsulosin HCl (Tamsulosin 0.4 Mg Cap.Er) 0.4 mg PO BEDTIME [facility] Last Admin: 01/03/21 20:13 Dose: 0.4 mg Documented by: Vancomycin HCl (Pharmacy To Dose - Vancomycin) 1 dose .XX ASDIRECTED [facility] Discontinued Medications Furosemide (Furosemide 40 Mg/4 Ml Vial) 80 mg IVPUSH NOW ONE Stop: 01/03/21 17:09 Ceftriaxone Sodium 1 gm/ (Sodium Chloride) 100 mls @ 200 mls/hr IV ONETIME ONE Stop: 01/03/21 17:59 Last Admin: 01/03/21 18:07 Dose: 200 mls/hr Documented by: Iopamidol (Iopamidol 755 Mg/Ml 100 Ml Bottle) 100 ml IVPUSH ONETIME ONE Stop: 01/03/21 16:17 Methylprednisolone Sodium Succinate (Methylprednisolone Sodium Succinate 125 Mg/2 Ml Sdv) 125 mg IVPUSH Q6H [facility] Last Admin: 01/03/21 18:06 Dose: 125 mg Documented by:
[2021-01-03] MEDS: Vancomycin 2 GM in Sodium Chloride 0.9% 500 ML IV SCH (21:16)
[2021-01-04] MEDS ORDERED: Furosemide 20 MG Tab PO SCH (08:00)
[2021-01-04] MEDS ORDERED: Pantoprazole 40 MG Tab.CR PO SCH (08:00)
[2021-01-04] MEDS ORDERED: Sertraline 50 MG Tab PO SCH (08:00)
[2021-01-04 08:28] LABS: CORONAVIRUS COVID-19 NAA NEGATIVE (NEGATIVE)
[2021-01-05] MEDS ORDERED: Ascorbic Acid 500 MG Tab PO SCH (09:00)
[2021-01-05] MEDS ORDERED: Ferrous Sulfate 325 MG Tab PO SCH (09:00)
== END 2021-01-03 21:40 | DRG 871 ==
LOC: LL.MS 16:10
PROVIDERS: ADMIT Emergency Medicine; ATTEND Emergency Medicine
DX: A41.9 Sepsis, unspecified organism (principal); J18.9 Pneumonia, unspecified organism; J96.21 Acute and chronic respiratory failure with hypoxia; I26.99 Other pulmonary embolism without acute cor pulmonale; I50.43 Acute on chronic combined systolic (congestive) and diastolic (congestive) heart failure; J44.1 Chronic obstructive pulmonary disease with (acute) exacerbation; Z68.42 Body mass index [BMI] 45.0-49.9, adult; J44.0 Chronic obstructive pulmonary disease with (acute) lower respiratory infection; R79.89 Other specified abnormal findings of blood chemistry; I44.0 Atrioventricular block, first degree; I25.10 Atherosclerotic heart disease of native coronary artery without angina pectoris; F41.8 Other specified anxiety disorders; E66.01 Morbid (severe) obesity due to excess calories; M19.90 Unspecified osteoarthritis, unspecified site; K21.9 Gastro-esophageal reflux disease without esophagitis; N28.9 Disorder of kidney and ureter, unspecified; I45.10 Unspecified right bundle-branch block; G47.33 Obstructive sleep apnea (adult) (pediatric); D69.6 Thrombocytopenia, unspecified; Z66 Do not resuscitate; R53.1 Weakness; Z79.899 Other long term (current) drug therapy; Z99.81 Dependence on supplemental oxygen; Z20.822 Contact with and (suspected) exposure to COVID-19
CPT/HCPCS: 36415; 84484; 87040; 87426; 94640; A9270-GY; J0456; J0696; J2930; J3370; J7040; J7050; J7620-GY; Q9967; U0002

== ENCOUNTER 2021-01-17 05:27 | Observation (INO) | payer MEDICARE, OTHER ==
[2021-01-17] MEDS ORDERED: Sodium Chloride 0.9% 10 ML Syringe FLUSH PRN (05:36)
[2021-01-17] MEDS ORDERED: cefTRIAXone 2 GM Vial IV ONE (05:36)
[2021-01-17] MEDS ORDERED: Lactated Ringers 1,000 ML IV ONE ×2 (05:40→06:01)
[2021-01-17 05:50] LABS: BASE EXCESS VENOUS -1 mmol/L ((-2)-3); BICARBONATE,VENOUS 26 mmol/L (23-28); O2 DELIVERY DEVICE BIPAP; O2 SATURATION VENOUS 69 %; PCO2 VENOUS 50 mmHG (41-51); PH,VENOUS 7.32 (7.31-7.41); PO2 VENOUS 39 mmHG
[2021-01-17] MEDS ORDERED: methylPREDNISolone Sodium Succinate 125 MG/2 ML SDV IVPUSH ONE (06:23)
--- NOTE | 2021-01-17 06:23 | EDM.PDOC ---
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 Water 50 Ml Syringe IVPUSH 01/17/21 07:04 50 ml ONETIME ONE Administration Furosemide 20 mg 01/18/21 12:07 Furosemide 20 Mg Tab PO DAILY PRN weight incr > 2lbs in 1 day Gabapentin 300 mg 01/18/21 12:15 01/19/21 17:36 Gabapentin 300 Mg Cap PO Not Given BID DARREL Haloperidol Lactate 5 mg 01/19/21 20:35 01/19/21 20:55 Haloperidol Lactate 5 Mg/Ml Sdv IM 01/19/21 20:36 5 mg ONETIME ONE Administration Haloperidol Lactate Confirm 01/19/21 20:43 01/19/21 21:01 Haloperidol Lactate 5 Mg/Ml Sdv Administered 01/19/21 20:44 Not Given Dose 5 mg .ROUTE .STK-MED ONE Haloperidol Lactate 5 mg 01/19/21 21:07 Haloperidol Lactate Oral Concetrate 2 Mg/Ml Ml 120 Ml Bottle PO Q4H PRN Agitation Haloperidol Lactate 5 mg 01/19/21 21:11 01/20/21 06:46 Haloperidol Lactate Oral Concetrate 2 Mg/Ml Ml 120 Ml Bottle PO 2.5 ml Q6H PRN Administration Agitation Haloperidol Lactate 10 mg 01/20/21 09:00 Haloperidol Lactate Oral Concetrate 2 Mg/Ml Ml 120 Ml Bottle PO Q4H PRN Agitation Haloperidol Lactate 5 mg 01/20/21 09:07 01/20/21 09:07 Haloperidol Lactate 2 Mg/Ml Oral Soln 15 Ml Bottle PO 01/20/21 09:08 5 mg ONETIME ONE Administration Haloperidol Lactate 30 mg 01/19/21 21:00 Haloperidol Lactate 2 Mg/Ml Oral Soln 15 Ml Bottle .ROUTE 01/19/21 21:01 .STK-MED ONE Lactated Ringer's 1,000 mls @ 1,000 mls/hr 01/17/21 05:40 01/17/21 05:50 Ringers, Lactated IV 01/17/21 06:39 1,000 mls/hr .BOLUS ONE Administration Lactated Ringer's 1,000 mls @ 1,000 mls/hr 01/17/21 06:01 01/17/21 06:58 Ringers, Lactated IV 01/17/21 07:00 1,000 mls/hr .BOLUS ONE Administration Vancomycin HCl 2 gm/ Premix 400 mls @ 200 mls/hr 01/17/21 07:08 01/17/21 07:25 IV 01/17/21 09:07 200 mls/hr STAT ONE Administration Lactated Ringer's 1,000 mls @ 125 mls/hr 01/17/21 07:30 01/17/21 07:35 Ringers, Lactated IV 125 mls/hr ASDIRECTED DARREL Administration Lorazepam 1 mg 01/17/21 12:00 01/20/21 08:50 Lorazepam Conc Solution 2 Mg/Ml 30 Ml Bottle BUCCAL 1 mg Q1H PRN Administration Anxiety/dyspenic Lorazepam 2 mg 01/20/21 09:00 01/20/21 09:49 Lorazepam Conc Solution 2 Mg/Ml 30 Ml Bottle BUCCAL 2 mg Q1H PRN Administration Anxiety/dyspenic Methylprednisolone Sodium Succinate 125 mg 01/17/21 06:23 01/17/21 06:59 Methylprednisolone Sodium Succinate 125 Mg/2 Ml Sdv IVPUSH 01/17/21 06:24 125 mg ONETIME ONE Administration Morphine Sulfate 1 - 2 mg 01/17/21 11:00 01/20/21 07:33 Morphine Oral Concentrate 20 Mg/Ml 30 Ml Bottle BUCCAL 4 mg Q1H PRN Administration Dyspnea Morphine Sulfate 3 - 4 mg 01/17/21 11:00 01/20/21 08:50 Morphine Oral Concentrate 20 Mg/Ml 30 Ml Bottle BUCCAL 4 mg Q1H PRN Administration Dyspnea Morphine Sulfate 2 mg 01/19/21 19:58 Morphine 2 Mg/Ml Syringe .XX Q2H PRN Shortness of Breath Morphine Sulfate Confirm 01/19/21 20:05 01/19/21 20:11 Morphine 2 Mg/Ml Syringe Administered 01/19/21 20:06 2 mg Dose Administration 2 mg .ROUTE .STK-MED ONE Morphine Sulfate 10 mg 01/20/21 09:00 Morphine Oral Concentrate 20 Mg/Ml 30 Ml Bottle SL Q4H PRN Dyspepsia Morphine Sulfate 5 mg 01/20/21 09:06 01/20/21 09:07 Morphine Oral Concentrate 20 Mg/Ml 30 Ml Bottle SL 01/20/21 09:07 5 mg ONETIME ONE Administration Morphine Sulfate 10 mg 01/20/21 10:00 01/20/21 09:51 Morphine Oral Concentrate 20 Mg/Ml 30 Ml Bottle SL 10 mg Q1H PRN Administration Dyspepsia Non-Formulary Medication 2 spray 01/18/21 18:00 01/19/21 10:37 Ipratropium [Atrovent 0.03% Nasal [place]] NASBOTH Not Given BID [facility] Pantoprazole Sodium 40 mg 01/19/21 08:00 01/19/21 08:37 Pantoprazole 40 Mg Tab.Cr PO Not Given DAILY [facility] Prednisone 5 mg 01/21/21 08:00 Prednisone 5 Mg Tab PO DAILY [facility] Prednisone 10 mg 01/19/21 08:00 01/19/21 08:37 Prednisone 5 Mg Tab PO 01/20/21 08:01 Not Given DAILY [facility] Sertraline HCl 200 mg 01/19/21 08:00 01/19/21 08:38 Sertraline 50 Mg Tab PO Not Given DAILY [facility] Sodium Chloride 10 ml 01/17/21 05:36 01/19/21 07:38 Sodium Chloride 0.9% 10 Ml Syringe FLUSH 10 ml ASDIRECTED PRN Administration Keep Vein Open Sodium Chloride 3 ml 01/19/21 20:00 Sodium Chloride 0.9% Inhalation Soln 3 Ml Neb INH Q2H PRN Shortness of Breath Sodium Chloride Confirm 01/19/21 20:07 01/19/21 20:10 Sodium Chloride 0.9% Inhalation Soln 3 Ml Neb Administered 01/19/21 20:08 3 ml Dose Administration 3 ml .ROUTE .STK-MED ONE Tamsulosin HCl 0.4 mg 01/18/21 20:00 01/19/21 20:07 Tamsulosin 0.4 Mg Cap.Er PO Not Given BEDTIME DARREL - Radiology Interpretation Free Text/Narrative:: Chest x-ray initially reviewed extemporaneously by myself shows some bilateral lung patchy diffuse opacities. When compared to previous appears somewhat worse. No hemopneumothorax. No overt isolated consolidation. Radiological review to follow. Chest x-ray per radiology shows subtle worsening of lung aeration bilaterally with diffuse airspace opacities again present. Cardiomegaly stable. No pneumothorax. CT of the head per radiology no acute calvarium fracture. Diffuse cerebral and cerebellar volume loss. There are white matter hypodensities scattered within bilateral cerebral hemispheres. Consistent with chronic microvascular changes. Normal basal ganglia. Normal brainstem. No hydrocephalus. Incidentally noted 19 x 13 mm arachnoid cyst within middle cranial fossa on the left of doubtful clinical significance. Basal cisterns are preserved. No acute intercranial process per radiology. - Re-Assessments/Exams Free Text/Narrative Re-Assessment/Exam: 01/17/21 06:30 Initially the patient was placed on BiPAP. With a IPAP of 20 EPAP of 5 Fi02 75% IV was established labs are drawn. Blood cultures x2. Rocephin 2 g IV piggyback for the concerns of sepsis. LR 2 liters wide open. Venous blood gas upon arrival shows a pH of 7.32, PCO2 50, PO2 39 this is a venous sample, bicarb 26, base excess -1 he is on BiPAP as above. Sodium 148, chloride 108, anion gap 20.9, BUN 56, creatinine 2.33, glucose 67 Magnesium high at 3.0. Lactic acid 4.9. Patient given dextrose IV due to the hypoglycemia. T bili 1.8, AST 343, ALT 203, alkaline phosphatase 181. Ammonia 49 minimally elevated. Troponin 894 proBNP 832 Procalcitonin initially pending eventually resulted at 0.55. Urinalysis is noninfectious appearing. Covid is negative. I did review the patient's chart here in [employer] as well as his primary tertiary care center at [place]. This is a patient at end-stage lung disease that have been discussed with him multiple times not only here but also his tertiary care center at [place] for the placement onto hospice or comfort cares as there is no thing else to offer him at this time. I'm finding nothing overtly emergent at this time. He did not improve his mental status or respiratory status with the BiPAP. He does have an elevation of his troponin but this could be somewhat due to his declining status. He is unresponsive at this time. I spoke with the patient's at length who is a nurse herself and clearly is understanding that this patient is at the end stage of his life. She is comfortable with comfort cares at this time. I discussed the patient sons as well. The and one son are agreeable to hospice and also comfort care at this time. Their questions were answered and they were comfortable with the plan. Care and report to Dr. Rosenbaum at change of shift. Departure - Departure Time of Disposition: 11:00 Disposition: Refer to Observation Clinical Impression: Acute on chronic respiratory failure with hypoxia and hypercapnia, Hypernatremia, Hypermagnesemia, Transaminitis, Severe sepsis without septic shock, Hypoglycemic episode in patient with diabetes mellitus, Morbid obesity Acute renal failure superimposed on stage 3 chronic kidney disease Qualifiers: Acute renal failure type: unspecified Chronic kidney disease stage 3 subtype: stage 3b (GFR 30-44) Qualified Code(s): N17.9 - Acute kidney failure, unspecified Anemia in chronic kidney disease Qualifiers: Chronic kidney disease stage: unspecified stage Qualified Code(s): N18.9 - Chronic kidney disease, unspecified Altered mental status Qualifiers: Altered mental status type: unspecified Qualified Code(s): R41.82 - Altered mental status, unspecified - Discharge Information
[2021-01-17 06:24] LABS: CHLORIDE,CL 108 mmol/L (98-107); SODIUM,NA 148 mmol/L (136-145)
[2021-01-17 06:31] LABS: ANION GAP 20.9 meq/L (7-15)
[2021-01-17] MEDS ORDERED: 50% Dextrose in Water 50 ML Syringe IVPUSH ONE ×2 (06:32→07:03)
[2021-01-17] MEDS ORDERED: 50% Dextrose in Water 50 ML Syringe ONE (07:03)
[2021-01-17] MEDS ORDERED: VANCOmycin 2 GM/400 ML 2 GM in Premix Bag 1 BAG IV ONE (07:08)
[2021-01-17 07:27] LABS: PTT,PARTIAL THROMBOPLSTIN TIME 23.4 SEC (24.5-32.8)
[2021-01-17] MEDS ORDERED: Lactated Ringers 1,000 ML IV SCH (07:30)
[2021-01-17] MEDS ORDERED: Aspirin 81 MG Tab.Chew ONE (07:36)
[2021-01-17] MEDS ORDERED: Aspirin 300 MG Supp ONE (07:53)
[2021-01-17] MEDS ORDERED: Aspirin 300 MG Supp RECTAL STA (08:01)
[2021-01-17] MEDS: Morphine Oral Concentrate 20 MG/ML 30 ML Bottle BUCCAL PRN (11:34)
[2021-01-17] MEDS ORDERED: Acetaminophen 650 MG Supp RECTAL PRN (12:00)
[2021-01-17] MEDS: LORazepam Conc Solution 2 MG/ML 30 ML Bottle BUCCAL PRN (13:18)
[2021-01-17] MEDS ORDERED: Albuterol/Ipratropium 3.0-0.5 MG/3 ML Neb Soln INH SCH (16:00)
[2021-01-18] MEDS: LORazepam Conc Solution 2 MG/ML 30 ML Bottle BUCCAL PRN ×2 (06:14→22:45)
[2021-01-18] MEDS: Morphine Oral Concentrate 20 MG/ML 30 ML Bottle BUCCAL PRN ×2 (06:23→16:50)
[2021-01-18] MEDS: Atropine 1% Ophth Soln 5 ML BOTTLE SL PRN (11:44)
[2021-01-18] MEDS: Albuterol/Ipratropium 3.0-0.5 MG/3 ML Neb Soln INH PRN ×2 (11:44→22:27)
[2021-01-18] MEDS ORDERED: Furosemide 20 MG Tab PO PRN (12:07)
[2021-01-18] MEDS ORDERED: Acetaminophen 325 MG Tab PO PRN (12:07)
--- NOTE | 2021-01-18 15:44 | PCM.PN ---
- General Info Date of Service: 01/18/21 Admission Dx/Problem (Free Text): Patient seen in ER for acute shortness of breath and hypoxemia. Initially placed on Bipap. Has been having multiple visits to ER/inpatient stays over recent months for similar complaints and there has been progressive worsening of patient's cognitive status/strength/COPD/CHF. It was decided by family to have patient placed on comfort cares only with hospice consult. Bipap that was initiated in ER was discontinued and patient admitted to observation. Patient also received initial doses of IV antibiotics and SoluMedrol in ER. Subjective Update: Patient is more awake today/less confused. Knows he is in [place]. Denies acute discomfort when asked. Functional Status: Reports: Pain Controlled, Other (bed bound/eating soft foods. ). Denies: New Symptoms - Review of Systems General: Reports: Weakness (chronic), Fatigue (chronic). Denies: Fever, Chills, Night Sweats HEENT: Reports: Other (no acute changes) Pulmonary: Reports: Other (No new cough or increased SOB). Denies: Pleuritic Chest Pain, Sputum, Hemoptysis, Wheezing Cardiovascular: Reports: Edema (chronic). Denies: Chest Pain Gastrointestinal: Denies: Abdominal Pain, Constipation, Diarrhea, Melena, Nausea, Vomiting Genitourinary: Reports: No Symptoms Musculoskeletal: Reports: Other (no acute changes) Skin: Reports: No Symptoms Neurological: Reports: Confusion, Difficulty Walking (only able to transfer with assistance), Weakness (chronic) Psychiatric: Reports: Confusion - Patient Data Vitals - Most Recent: Last Vital Signs Temp 36.4 C 01/17/21 05:36 Pulse 88 01/17/21 08:41 Resp 18 01/17/21 08:41 BP 93/46 L 01/17/21 08:41 Pulse Ox 95 01/17/21 08:41 Weight - Most Recent: 124.738 kg Lab Results Last 24 Hours: Laboratory Results - last 24 hr 01/17/21 01/18/21 Range/Units 05:39 14:15 Ammonia 27 (11-32) umol/L Procalcitonin 0.55 H ng/mL Maxi Results Last 24 Hours: Microbiology 01/18/21 00:45 Stool Occult Blood (MAXI) - Final Stool / Feces 01/17/21 06:55 Aerobic Blood Culture - Preliminary Blood - Venous - Lab Draw NO GROWTH AFTER 1 DAY Anaerobic Blood Culture - Preliminary NO GROWTH AFTER 1 DAY 01/17/21 05:39 Aerobic Blood Culture - Preliminary Blood - Venous NO GROWTH AFTER 1 DAY Anaerobic Blood Culture - Preliminary NO GROWTH AFTER 1 DAY Med Orders - Current: Current Medications Acetaminophen (Acetaminophen 650 Mg Supp) 650 mg RECTAL Q4H PRN PRN Reason: fever/pain Acetaminophen (Acetaminophen 325 Mg Tab) 325 mg PO Q4H PRN PRN Reason: Pain Albuterol/Ipratropium (Albuterol/Ipratropium 3.0-0.5 Mg/3 Ml Neb Soln) 3 ml INH Q4HR PRN PRN Reason: Shortness of Breath Last Admin: 01/18/21 11:44 Dose: 3 ml Documented by: Aripiprazole (Aripiprazole 10 Mg Tab) 5 mg PO BEDTIME DARREL Atropine Sulfate (Atropine 1% Ophth Soln 5 Ml Bottle) 1 ml SL Q2H PRN PRN Reason: secretion excess Last Admin: 01/18/21 11:44 Dose: 1 ml Documented by: Furosemide (Furosemide 20 Mg Tab) 20 mg PO DAILY PRN PRN Reason: weight incr > 2lbs in 1 day Gabapentin (Gabapentin 300 Mg Cap) 300 mg PO BID DARREL Lorazepam (Lorazepam Conc Solution 2 Mg/Ml 30 Ml Bottle) 1 mg BUCCAL Q1H PRN PRN Reason: Anxiety/dyspenic Last Admin: 01/18/21 06:14 Dose: 1 mg Documented by: Morphine Sulfate (Morphine Oral Concentrate 20 Mg/Ml 30 Ml Bottle) 1 - 2 mg BUCCAL Q1H PRN PRN Reason: Dyspnea Morphine Sulfate (Morphine Oral Concentrate 20 Mg/Ml 30 Ml Bottle) 3 - 4 mg BUCCAL Q1H PRN PRN Reason: Dyspnea Last Admin: 01/18/21 06:23 Dose: 4 mg Documented by: Non-Formulary Medication (Ipratropium [Atrovent 0.03% Nasal [place]]) 2 spray NASBOTH BID [facility] Pantoprazole Sodium (Pantoprazole 40 Mg Tab.Cr) 40 mg PO DAILY [facility] Prednisone (Prednisone 5 Mg Tab) 5 mg PO DAILY [facility] Prednisone (Prednisone 5 Mg Tab) 10 mg PO DAILY DARREL Stop: 01/20/21 08:01 Sertraline HCl (Sertraline 50 Mg Tab) 200 mg PO DAILY [facility] Sodium Chloride (Sodium Chloride 0.9% 10 Ml Syringe) 10 ml FLUSH ASDIRECTED PRN PRN Reason: Keep Vein Open Tamsulosin HCl (Tamsulosin 0.4 Mg Cap.Er) 0.4 mg PO BEDTIME DARREL Discontinued Medications Albuterol/Ipratropium (Albuterol/Ipratropium 3.0-0.5 Mg/3 Ml Neb Soln) 3 ml INH Q4HR DARREL Last Admin: 01/17/21 17:12 Dose: Not Given Documented by: Aspirin (Aspirin 81 Mg Tab.Chew) 324 mg .XX ONETIME ONE Stop: 01/17/21 07:37 Last Admin: 01/17/21 08:01 Dose: Not Given Documented by: Aspirin (Aspirin 300 Mg Supp) Confirm Administered Dose 300 mg .ROUTE .STK-MED ONE Stop: 01/17/21 07:54 Last Admin: 01/17/21 08:05 Dose: Not Given Documented by: Aspirin (Aspirin 300 Mg Supp) 300 mg RECTAL NOW STA Stop: 01/17/21 08:02 Last Admin: 01/17/21 08:05 Dose: 300 mg Documented by: Ceftriaxone Sodium (Ceftriaxone 2 Gm Vial) 2 gm IV STAT ONE Stop: 01/17/21 05:37 Last Admin: 01/17/21 05:51 Dose: 2 gm Documented by: Dextrose/Water (50% Dextrose In Water 50 Ml Syringe) 50 ml IVPUSH ONETIME ONE Stop: 01/17/21 06:33 Last Admin: 01/17/21 06:36 Dose: 50 ml Documented by: Dextrose/Water (50% Dextrose In Water 50 Ml Syringe) Confirm Administered Dose 50 ml .ROUTE .STK-MED ONE Stop: 01/17/21 07:04 Last Admin: 01/17/21 07:10 Dose: 50 ml Documented by: Dextrose/Water (50% Dextrose In Water 50 Ml Syringe) 50 ml IVPUSH ONETIME ONE Stop: 01/17/21 07:04 Last Admin: 01/17/21 07:10 Dose: 50 ml Documented by: Lactated Ringer's (Ringers, Lactated) 1,000 mls @ 1,000 mls/hr IV .BOLUS ONE Stop: 01/17/21 06:39 Last Admin: 01/17/21 05:50 Dose: 1,000 mls/hr Documented by: Lactated Ringer's (Ringers, Lactated) 1,000 mls @ 1,000 mls/hr IV .BOLUS ONE Stop: 01/17/21 07:00 Last Admin: 01/17/21 06:58 Dose: 1,000 mls/hr Documented by: Vancomycin HCl 2 gm/ Premix 400 mls @ 200 mls/hr IV STAT ONE Stop: 01/17/21 09:07 Last Admin: 01/17/21 07:25 Dose: 200 mls/hr Documented by: Lactated Ringer's (Ringers, Lactated) 1,000 mls @ 125 mls/hr IV ASDIRECTED [facility] Last Admin: 01/17/21 07:35 Dose: 125 mls/hr Documented by: Methylprednisolone Sodium Succinate (Methylprednisolone Sodium Succinate 125 Mg/2 Ml Sdv) 125 mg IVPUSH ONETIME ONE Stop: 01/17/21 06:24 Last Admin: 01/17/21 06:59 Dose: 125 mg Documented by: - Exam Quality Assessment: Supplemental Oxygen Urinary Catheter Total Time: 0Days 0Hours General: Other (more lethargic than previously. Wakes up to converse with staff and family. Knows he is in [place]. ) HEENT: Pupils Equal, Pupils Reactive, EOMI Neck: Supple Lungs: Normal Respiratory Effort, Rhonchi (minimal upper airway sounds noted ) Cardiovascular: Regular Rate, Regular Rhythm GI/Abdominal Exam: Normal Bowel Sounds, Soft, Non-Tender, Other (obese) (Male) Exam: Deferred Back Exam: No: CVA Tenderness (L), CVA Tenderness (R), Muscle Spasm Extremities: Non-Tender, Normal Capillary Refill (centrally), Pedal Edema Skin: Warm, Dry Neurological: No New Focal Deficit Psy/Mental Status: No: Hallucinations - Patient Data Lab Results Last 24 hrs: Laboratory Results - last 24 hr 01/17/21 01/18/21 Range/Units 05:39 14:15 Ammonia 27 (11-32) umol/L Procalcitonin 0.55 H ng/mL Result Diagrams: 01/17/21 05:39 01/17/21 05:39 Maxi Results Last 24 hrs: Microbiology 01/18/21 00:45 Stool Occult Blood (MAXI) - Final Stool / Feces 01/17/21 06:55 Aerobic Blood Culture - Preliminary Blood - Venous - Lab Draw NO GROWTH AFTER 1 DAY Anaerobic Blood Culture - Preliminary NO GROWTH AFTER 1 DAY 01/17/21 05:39 Aerobic Blood Culture - Preliminary Blood - Venous NO GROWTH AFTER 1 DAY Anaerobic Blood Culture - Preliminary NO GROWTH AFTER 1 DAY Sepsis Event Note - Evaluation Sepsis Screening Result: No Definite Risk - Problem List & Annotations (1) Need for comfort care SNOMED Code(s): 116582500, 607374611 Code(s): GQQ6793 - Status: Acute Priority: High Current Visit: Yes Annotation/Comment:: Consult Hospice Wednesday/patient's family currently wishes to focus on comfort care. (2) Acute on chronic respiratory failure with hypoxia and hypercapnia SNOMED Code(s): 19789848616890 Code(s): J96.21 - ACUTE AND CHRONIC RESPIRATORY FAILURE WITH HYPOXIA; J96.22 - ACUTE AND CHRONIC RESPIRATORY FAILURE WITH HYPERCAPNIA Status: Acute Priority: High Current Visit: Yes Annotation/Comment:: History of increasing frequency of episodes acute hypoxemia/respiratory distress. Often treated with steroids/antibiotics. Did respond to Bipap treatment along with Solu-medrol yesterday in ED. Initial doses of antibiotics also received in ED. No significant acute changes noted on chest film by Radiology. No fevers/normal WBC. Solu-medrol and antibiotics discontinued when patient's family decided on comfort care/Hospice consult. Improved today. O2 sats upper 90s on [place] O2 5-6 L. (3) Elevated troponin SNOMED Code(s): 380584727, 029365612, 412107428 Code(s): R77.8 - OTHER SPECIFIED ABNORMALITIES OF PLASMA PROTEINS Status: Acute Priority: Medium Current Visit: Yes Annotation/Comment:: Suspect elevated due to myocardial ischemic event. No further intervention at this time due to patient receiving comfort measures. Patient denies chest pain. (4) Confusion SNOMED Code(s): 131898886 Code(s): R41.0 - DISORIENTATION, UNSPECIFIED Status: Chronic Priority: Low Current Visit: Yes Annotation/Comment:: increasing episodes of confusion noted by both staff and family. (5) Hypoglycemic episode in patient with diabetes mellitus SNOMED Code(s): 763024159, 295581502 Code(s): E11.649 - TYPE 2 DIABETES MELLITUS WITH HYPOGLYCEMIA WITHOUT COMA Status: Acute Priority: Medium Current Visit: Yes Annotation/Comment:: Improved blood sugars noted. Accuchecks discontinued once family decided on comfort cares. (6) Transaminitis SNOMED Code(s): 718364021, 782508377 Code(s): R74.01 - ELEVATION OF LEVELS OF LIVER TRANSAMINASE LEVELS Status: Acute Priority: Medium Current Visit: Yes Annotation/Comment:: Acute elevation ALT/AST with total bili of 1.8. Patient denies abdominal pain. Afebrile. No GI changes. (7) Morbid obesity SNOMED Code(s): 060100716 Code(s): E66.01 - MORBID (SEVERE) OBESITY DUE TO EXCESS CALORIES Status: Chronic Priority: Medium Current Visit: Yes Annotation/Comment:: Lifestyle changes/diet have been reviewed with patient during previous visits. Patient not interested in making changes to diet. (8) Anemia SNOMED Code(s): 696139215 Code(s): D64.9 - ANEMIA, UNSPECIFIED Status: Acute Priority: Medium Current Visit: Yes Qualifiers: Anemia type: other cause Other causes of anemia: other cause, not classified Qualified Code(s): D64.89 - Other specified anemias Annotation/Comment:: chronic anemia. Suspect secondary to chronic disease/chr onic kidney disease. Is receiving iron supplementation PO. Currently being held due to comfort cares but consider restart if family decides against Hospice care. (9) CHF (congestive heart failure) SNOMED Code(s): 20697409 Code(s): I50.9 - HEART FAILURE, UNSPECIFIED Status: Chronic Priority: Medium Current Visit: Yes Qualifiers: Heart failure type: unspecified Heart failure chronicity: unspecified Qualified Code(s): I50.9 - Heart failure, unspecified Annotation/Comment:: CHF by chest x-ray with elevated BNP. No further intervent ion at this time due to comfort care measures. (10) COPD (chronic obstructive pulmonary disease) SNOMED Code(s): 48852420 Code(s): J44.9 - CHRONIC OBSTRUCTIVE PULMONARY DISEASE, UNSPECIFIED Status: Chronic Priority: High Current Visit: Yes Qualifiers: COPD type: COPD with acute exacerbation Qualified Code(s): J44.1 - Chronic obstructive pulmonary disease with (acute) exacerbation Annotation/Comment:: On chronic home O2. Continue supplemental O2 via [place]. (11) Mixed anxiety depressive disorder SNOMED Code(s): 444936321 Code(s): F41.8 - OTHER SPECIFIED ANXIETY DISORDERS Status: Chronic Priority: Medium Current Visit: No Annotation/Comment:: Stable by history (12) Osteoarthritis SNOMED Code(s): 867593694 Code(s): M19.90 - UNSPECIFIED OSTEOARTHRITIS, UNSPECIFIED SITE Status: [employer] [place] Priority: Medium Current Visit: No Qualifiers: Osteoarthritis location: unspecified site Annotation/Comment:: Stable by history (13) Peptic reflux disease SNOMED Code(s): 761415608 Code(s): K21.9 - GASTRO-ESOPHAGEAL REFLUX DISEASE WITHOUT ESOPHAGITIS Status: Chronic Priority: Medium Current Visit: No Annotation/Comment:: Stable by history (14) Renal insufficiency SNOMED Code(s): 070112170, 648354792 Code(s): N28.9 - DISORDER OF KIDNEY AND URETER, UNSPECIFIED Status: Chronic Priority: Medium Current Visit: Yes Annotation/Comment:: Creatinine 2.23 in ED. (15) Weakness generalized SNOMED Code(s): 22009086 Code(s): R53.1 - WEAKNESS Status: Chronic Priority: Medium Current Visit: Yes Annotation/Comment:: Overall weakness and deconditioning due to obesity, age, and chronic illness. - Problem List Review Problem List Initiated/Reviewed/Updated: Yes - My Orders Last 24 Hours: My Active Orders 01/17/21 15:56 RT Aerosol Therapy [RC] .PRN 01/17/21 17:11 Albuterol/Ipratropium [DuoNeb 3.0-0.5 MG/3 ML] 3 ml INH Q4HR PRN 01/18/21 12:07 Acetaminophen [TylenoL] 325 mg PO Q4H PRN Furosemide [Lasix] 20 mg PO DAILY PRN 01/18/21 12:15 Gabapentin [Neurontin] 300 mg PO BID 01/18/21 15:40 Vital Signs [RC] Q8H 01/18/21 18:00 Ipratropium [Atrovent 0.03% Nasal [place]] 2 spray NASBOTH BID 01/18/21 20:00 ARIPiprazole [Abilify] 5 mg PO BEDTIME Tamsulosin [Flomax] 0.4 mg PO BEDTIME 01/19/21 05:11 COMPREHENSIVE METABOLIC PN,CMP [CHEM] AM LACTIC ACID [CHEM] AM MAGNESIUM [CHEM] AM TROPONIN I HIGH SENSITIVITY [CHEM] AM 01/19/21 05:15 CBC WITH AUTO DIFF [HEME] AM 01/19/21 08:00 Pantoprazole [ProTONIX] 40 mg PO DAILY Sertraline [Zoloft] 200 mg PO DAILY predniSONE 10 mg PO DAILY 01/21/21 08:00 predniSONE 5 mg PO DAILY - Assessment Assessment:: as above. Patient continues to decline over recent months. Family currently electing to pursue comfort cares. Due to patient's confusion and somnolence yesterday regular meds held. He is more awake today and able to swallow some soft foods. Some of patient's regular medications were restarted today. PRN MS ordered. Supplemental O2 continued. - Plan Plan:: Continue comfort measures. Current plan is to possibly discharge patient back to senior care on Wednesday. Hospice consult planned for Wednesday. [facility] will not be able to accept the patient on the weekend due to staffing. Patient will be staying over the 48 hour observation timeframe because of this. Family is interested in possibly keeping him here on Swing Bed/Hospice and can review that option with Case Management Wednesday. Recheck labs in AM.
[2021-01-18] MEDS: Gabapentin 300 MG Cap PO SCH ×2 (19:10→19:20)
[2021-01-18] MEDS: ARIPiprazole 10 MG Tab PO SCH (20:13)
[2021-01-18] MEDS: Tamsulosin 0.4 MG Cap.ER PO SCH (20:13)
[2021-01-19] MEDS: Albuterol/Ipratropium 3.0-0.5 MG/3 ML Neb Soln INH PRN ×3 (07:33→19:52)
[2021-01-19] MEDS: Atropine 1% Ophth Soln 5 ML BOTTLE SL PRN ×2 (07:33→12:51)
[2021-01-19] MEDS: LORazepam Conc Solution 2 MG/ML 30 ML Bottle BUCCAL PRN ×4 (07:36→19:52)
[2021-01-19] MEDS ORDERED: Pantoprazole 40 MG Tab.CR PO SCH (08:00)
[2021-01-19] MEDS ORDERED: predniSONE 5 MG Tab PO SCH (08:00)
[2021-01-19] MEDS ORDERED: Sertraline 50 MG Tab PO SCH (08:00)
[2021-01-19] MEDS: Gabapentin 300 MG Cap PO SCH ×2 (08:37→17:36)
[2021-01-19 08:38] LABS: CHLORIDE,CL 110 mmol/L (98-107); SODIUM,NA 146 mmol/L (136-145)
[2021-01-19 08:54] LABS: ANION GAP 6.7 meq/L (7-15)
[2021-01-19] MEDS: Non-Formulary Medication 1 Each (Ipratropium [Atrovent 0.03% Nasal Spray] 30 ML Bottle) NASBOTH SCH (10:37)
[2021-01-19] MEDS: Morphine Oral Concentrate 20 MG/ML 30 ML Bottle BUCCAL PRN ×5 (13:40→20:04)
[2021-01-19 14:40] VITALS: BP 110/60; PULSE 86
--- NOTE | 2021-01-19 16:45 | PCM.PN ---
- General Info Date of Service: 01/19/21 Admission Dx/Problem (Free Text): Patient seen in ER for acute shortness of breath and hypoxemia. Initially placed on Bipap. Has been having multiple visits to ER/inpatient stays over recent months for similar complaints and there has been progressive worsening of patient's cognitive status/strength/COPD/CHF. It was decided by family to have patient placed on comfort cares only with hospice consult. Bipap that was initiated in ER was discontinued and patient admitted to observation. Patient also received initial doses of IV antibiotics and SoluMedrol in ER. Subjective Update: Patient spends much of time sleeping. Knows he is in [place]. Denies acute discomfort when asked. Functional Status: Reports: Pain Controlled. Denies: New Symptoms - Review of Systems General: Denies: Fever HEENT: Reports: Other Pulmonary: Reports: Shortness of Breath. Denies: Pleuritic Chest Pain, Hemoptysis, Wheezing Cardiovascular: Reports: No Symptoms Gastrointestinal: Denies: Abdominal Pain, Diarrhea, Nausea, Vomiting Genitourinary: Reports: Other (Ruiz in place) Musculoskeletal: Reports: Other (no acute changes) Skin: Reports: Other (No acute changes) Neurological: Reports: Confusion, Other (No new focal acute changes) Psychiatric: Reports: Confusion - Patient Data Vitals - Most Recent: Last Vital Signs Temp 36.6 C 01/19/21 12:00 Pulse 86 01/19/21 12:00 Resp 28 H 01/19/21 12:00 BP 110/60 01/19/21 12:00 Pulse Ox 98 01/19/21 12:00 Weight - Most Recent: 124.738 kg Lab Results Last 24 Hours: Laboratory Results - last 24 hr 01/19/21 01/19/21 01/19/21 Range/Units 08:10 08:10 08:10 WBC 2.0 L (4.0-10.2) K/uL RBC 2.72 L (4.33-5.41) M/uL Hgb 7.8 L (13.1-16.8) g/dL Hct 24.6 L* (39.0-49.0) % MCV 90.4 (84.0-98.0) fL MCH 28.7 (28.2-33.3) pg MCHC 31.7 (31.7-36.0) g/dL RDW 18.6 H (11.2-14.1) % Plt Count 68 L (150-350) K/uL Neut % (Auto) 73.7 (45.0-80.0) % Lymph % (Auto) 13.4 (10.0-50.0) % Jones % (Auto) 10.9 (2.0-14.0) % Eos % (Auto) 1.5 (0.0-5.0) % Baso % (Auto) 0.5 (0.0-2.0) % Neut # (Auto) 1.48 (1.40-7.00) K/uL Lymph # (Auto) 0.27 L (0.50-3.50) K/uL Jones # (Auto) 0.22 (0.00-1.00) K/uL Eos # (Auto) 0.03 (0.00-0.50) K/uL Baso # (Auto) 0.01 (0.00-0.20) K/uL Sodium 146 H (136-145) mmol/L Potassium 4.0 (3.5-5.1) mmol/L Chloride 110 H (98-107) mmol/L Carbon Dioxide 33.3 H (21.0-32.0) mmol/L Anion Gap 6.7 L (7-15) meq/L BUN 47 H (7-18) mg/dL Creatinine 1.54 H (0.51-1.17) mg/dL Est Cr Clr Drug Dosing TNP Estimated GFR (MDRD) 44 mL/min Glucose 115 H (70-99) mg/dL Calcium 8.1 L (8.5-10.1) mg/dL Magnesium 2.4 (1.8-2.4) mg/dL Total Bilirubin 0.6 (0.2-1.0) mg/dL AST 551 H (15-37) U/L ALT 988 H (12-78) U/L Alkaline Phosphatase 138 H (46-116) IU/L Ammonia 20 (11-32) umol/L Troponin I High Sens 734 H* (<=76) ng/L Total Protein 5.3 L (6.4-8.2) g/dL Albumin 2.5 L (3.4-5.0) g/dL Amylase (25-115) U/L Lipase (73-393) U/L 01/19/21 Range/Units 08:10 WBC (4.0-10.2) K/uL RBC (4.33-5.41) M/uL Hgb (13.1-16.8) g/dL Hct (39.0-49.0) % MCV (84.0-98.0) fL MCH (28.2-33.3) pg MCHC (31.7-36.0) g/dL RDW (11.2-14.1) % Plt Count (150-350) K/uL Neut % (Auto) (45.0-80.0) % Lymph % (Auto) (10.0-50.0) % Jones % (Auto) (2.0-14.0) % Eos % (Auto) (0.0-5.0) % Baso % (Auto) (0.0-2.0) % Neut # (Auto) (1.40-7.00) K/uL Lymph # (Auto) (0.50-3.50) K/uL Jones # (Auto) (0.00-1.00) K/uL Eos # (Auto) (0.00-0.50) K/uL Baso # (Auto) (0.00-0.20) K/uL Sodium (136-145) mmol/L Potassium (3.5-5.1) mmol/L Chloride (98-107) mmol/L Carbon Dioxide (21.0-32.0) mmol/L Anion Gap (7-15) meq/L BUN (7-18) mg/dL Creatinine (0.51-1.17) mg/dL Est Cr Clr Drug Dosing Estimated GFR (MDRD) mL/min Glucose (70-99) mg/dL Calcium (8.5-10.1) mg/dL Magnesium (1.8-2.4) mg/dL Total Bilirubin (0.2-1.0) mg/dL AST (15-37) U/L ALT (12-78) U/L Alkaline Phosphatase (46-116) IU/L Ammonia (11-32) umol/L Troponin I High Sens (<=76) ng/L Total Protein (6.4-8.2) g/dL Albumin (3.4-5.0) g/dL Amylase 50 (25-115) U/L Lipase 91 (73-393) U/L Maxi Results Last 24 Hours: Microbiology 01/17/21 05:36 Urine Culture - Final Urine, Catheterized Gram Negative Rods 01/17/21 06:55 Aerobic Blood Culture - Preliminary Blood - Venous - Lab Draw NO GROWTH AFTER 2 DAYS Anaerobic Blood Culture - Preliminary NO GROWTH AFTER 2 DAYS 01/17/21 05:39 Aerobic Blood Culture - Preliminary Blood - Venous NO GROWTH AFTER 2 DAYS Anaerobic Blood Culture - Preliminary NO GROWTH AFTER 2 DAYS Med Orders - Current: Current Medications Acetaminophen (Acetaminophen 650 Mg Supp) 650 mg RECTAL Q4H PRN PRN Reason: fever/pain Acetaminophen (Acetaminophen 325 Mg Tab) 325 mg PO Q4H PRN PRN Reason: Pain Albuterol/Ipratropium (Albuterol/Ipratropium 3.0-0.5 Mg/3 Ml Neb Soln) 3 ml INH Q4HR PRN PRN Reason: Shortness of Breath Last Admin: 01/19/21 12:51 Dose: 3 ml Documented by: Aripiprazole (Aripiprazole 10 Mg Tab) 5 mg PO BEDTIME [facility] Last Admin: 01/18/21 20:13 Dose: 5 mg Documented by: Atropine Sulfate (Atropine 1% Ophth Soln 5 Ml Bottle) 1 ml SL Q2H PRN PRN Reason: secretion excess Last Admin: 01/19/21 12:51 Dose: 1 ml Documented by: Furosemide (Furosemide 20 Mg Tab) 20 mg PO DAILY PRN PRN Reason: weight incr > 2lbs in 1 day Gabapentin (Gabapentin 300 Mg Cap) 300 mg PO BID [facility] Last Admin: 01/19/21 08:37 Dose: Not Given Documented by: Lorazepam (Lorazepam Conc Solution 2 Mg/Ml 30 Ml Bottle) 1 mg BUCCAL Q1H PRN PRN Reason: Anxiety/dyspenic Last Admin: 01/19/21 13:51 Dose: 1 mg Documented by: Morphine Sulfate (Morphine Oral Concentrate 20 Mg/Ml 30 Ml Bottle) 1 - 2 mg BUCCAL Q1H PRN PRN Reason: Dyspnea Last Admin: 01/19/21 13:40 Dose: 2 mg Documented by: Morphine Sulfate (Morphine Oral Concentrate 20 Mg/Ml 30 Ml Bottle) 3 - 4 mg BUCCAL Q1H PRN PRN Reason: Dyspnea Last Admin: 01/18/21 06:23 Dose: 4 mg Documented by: Pantoprazole Sodium (Pantoprazole 40 Mg Tab.Cr) 40 mg PO DAILY [facility] Last Admin: 01/19/21 08:37 Dose: Not Given Documented by: Prednisone (Prednisone 5 Mg Tab) 5 mg PO DAILY [facility] Prednisone (Prednisone 5 Mg Tab) 10 mg PO DAILY [facility] Stop: 01/20/21 08:01 Last Admin: 01/19/21 08:37 Dose: Not Given Documented by: Sertraline HCl (Sertraline 50 Mg Tab) 200 mg PO DAILY [facility] Last Admin: 01/19/21 08:38 Dose: Not Given Documented by: Sodium Chloride (Sodium Chloride 0.9% 10 Ml Syringe) 10 ml FLUSH ASDIRECTED PRN PRN Reason: Keep Vein Open Last Admin: 01/19/21 07:38 Dose: 10 ml Documented by: Tamsulosin HCl (Tamsulosin 0.4 Mg Cap.Er) 0.4 mg PO BEDTIME [facility] Last Admin: 01/18/21 20:13 Dose: 0.4 mg Documented by: Discontinued Medications Albuterol/Ipratropium (Albuterol/Ipratropium 3.0-0.5 Mg/3 Ml Neb Soln) 3 ml INH Q4HR [facility] Last Admin: 01/17/21 17:12 Dose: Not Given Documented by: Aspirin (Aspirin 81 Mg Tab.Chew) 324 mg .XX ONETIME ONE Stop: 01/17/21 07:37 Last Admin: 01/17/21 08:01 Dose: Not Given Documented by: Aspirin (Aspirin 300 Mg Supp) Confirm Administered Dose 300 mg .ROUTE .STK-MED ONE Stop: 01/17/21 07:54 Last Admin: 01/17/21 08:05 Dose: Not Given Documented by: Aspirin (Aspirin 300 Mg Supp) 300 mg RECTAL NOW STA Stop: 01/17/21 08:02 Last Admin: 01/17/21 08:05 Dose: 300 mg Documented by: Ceftriaxone Sodium (Ceftriaxone 2 Gm Vial) 2 gm IV STAT ONE Stop: 01/17/21 05:37 Last Admin: 01/17/21 05:51 Dose: 2 gm Documented by: Dextrose/Water (50% Dextrose In Water 50 Ml Syringe) 50 ml IVPUSH ONETIME ONE Stop: 01/17/21 06:33 Last Admin: 01/17/21 06:36 Dose: 50 ml Documented by: Dextrose/Water (50% Dextrose In Water 50 Ml Syringe) Confirm Administered Dose 50 ml .ROUTE .STK-MED ONE Stop: 01/17/21 07:04 Last Admin: 01/17/21 07:10 Dose: 50 ml Documented by: Dextrose/Water (50% Dextrose In Water 50 Ml Syringe) 50 ml IVPUSH ONETIME ONE Stop: 01/17/21 07:04 Last Admin: 01/17/21 07:10 Dose: 50 ml Documented by: Lactated Ringer's (Ringers, Lactated) 1,000 mls @ 1,000 mls/hr IV .BOLUS ONE Stop: 01/17/21 06:39 Last Admin: 01/17/21 05:50 Dose: 1,000 mls/hr Documented by: Lactated Ringer's (Ringers, Lactated) 1,000 mls @ 1,000 mls/hr IV .BOLUS ONE Stop: 01/17/21 07:00 Last Admin: 01/17/21 06:58 Dose: 1,000 mls/hr Documented by: Vancomycin HCl 2 gm/ Premix 400 mls @ 200 mls/hr IV STAT ONE Stop: 01/17/21 09:07 Last Admin: 01/17/21 07:25 Dose: 200 mls/hr Documented by: Lactated Ringer's (Ringers, Lactated) 1,000 mls @ 125 mls/hr IV ASDIRECTED [facility] Last Admin: 01/17/21 07:35 Dose: 125 mls/hr Documented by: Methylprednisolone Sodium Succinate (Methylprednisolone Sodium Succinate 125 Mg/2 Ml Sdv) 125 mg IVPUSH ONETIME ONE Stop: 01/17/21 06:24 Last Admin: 01/17/21 06:59 Dose: 125 mg Documented by: Non-Formulary Medication (Ipratropium [Atrovent 0.03% Nasal [place]]) 2 spray NASBOTH BID [facility] Last Admin: 01/19/21 10:37 Dose: Not Given Documented by: - Exam Quality Assessment: Supplemental Oxygen, Urine Catheter Urinary Catheter Total Time: 2Days 2Hours General: Lethargic (sleeping during visit) HEENT: Pupils Equal, Pupils Reactive, EOMI Neck: Supple Lungs: Rales (mild), Rhonchi (bilaterally). No: Stridor, Wheezing Cardiovascular: Regular Rate, Regular Rhythm GI/Abdominal Exam: Soft, Non-Tender, No Distention, Other (obese) (Male) Exam: Deferred Back Exam: No: Muscle Spasm Extremities: Non-Tender, Normal Capillary Refill, Pedal Edema. No: Increased Warmth, Mottled, Pallor, Redness Skin: Warm, Dry Neurological: No New Focal Deficit Psy/Mental Status: Other (sleeping) - Patient Data Lab Results Last 24 hrs: Laboratory Results - last 24 hr 01/19/21 01/19/21 01/19/21 Range/Units 08:10 08:10 08:10 WBC 2.0 L (4.0-10.2) K/uL RBC 2.72 L (4.33-5.41) M/uL Hgb 7.8 L (13.1-16.8) g/dL Hct 24.6 L* (39.0-49.0) % MCV 90.4 (84.0-98.0) fL MCH 28.7 (28.2-33.3) pg MCHC 31.7 (31.7-36.0) g/dL RDW 18.6 H (11.2-14.1) % Plt Count 68 L (150-350) K/uL Neut % (Auto) 73.7 (45.0-80.0) % Lymph % (Auto) 13.4 (10.0-50.0) % Jones % (Auto) 10.9 (2.0-14.0) % Eos % (Auto) 1.5 (0.0-5.0) % Baso % (Auto) 0.5 (0.0-2.0) % Neut # (Auto) 1.48 (1.40-7.00) K/uL Lymph # (Auto) 0.27 L (0.50-3.50) K/uL Jones # (Auto) 0.22 (0.00-1.00) K/uL Eos # (Auto) 0.03 (0.00-0.50) K/uL Baso # (Auto) 0.01 (0.00-0.20) K/uL Sodium 146 H (136-145) mmol/L Potassium 4.0 (3.5-5.1) mmol/L Chloride 110 H (98-107) mmol/L Carbon Dioxide 33.3 H (21.0-32.0) mmol/L Anion Gap 6.7 L (7-15) meq/L BUN 47 H (7-18) mg/dL Creatinine 1.54 H (0.51-1.17) mg/dL Est Cr Clr Drug Dosing TNP Estimated GFR (MDRD) 44 mL/min Glucose 115 H (70-99) mg/dL Calcium 8.1 L (8.5-10.1) mg/dL Magnesium 2.4 (1.8-2.4) mg/dL Total Bilirubin 0.6 (0.2-1.0) mg/dL AST 551 H (15-37) U/L ALT 988 H (12-78) U/L Alkaline Phosphatase 138 H (46-116) IU/L Ammonia 20 (11-32) umol/L Troponin I High Sens 734 H* (<=76) ng/L Total Protein 5.3 L (6.4-8.2) g/dL Albumin 2.5 L (3.4-5.0) g/dL Amylase (25-115) U/L Lipase (73-393) U/L 01/19/21 Range/Units 08:10 WBC (4.0-10.2) K/uL RBC (4.33-5.41) M/uL Hgb (13.1-16.8) g/dL Hct (39.0-49.0) % MCV (84.0-98.0) fL MCH (28.2-33.3) pg MCHC (31.7-36.0) g/dL RDW (11.2-14.1) % Plt Count (150-350) K/uL Neut % (Auto) (45.0-80.0) % Lymph % (Auto) (10.0-50.0) % Jones % (Auto) (2.0-14.0) % Eos % (Auto) (0.0-5.0) % Baso % (Auto) (0.0-2.0) % Neut # (Auto) (1.40-7.00) K/uL Lymph # (Auto) (0.50-3.50) K/uL Jones # (Auto) (0.00-1.00) K/uL Eos # (Auto) (0.00-0.50) K/uL Baso # (Auto) (0.00-0.20) K/uL Sodium (136-145) mmol/L Potassium (3.5-5.1) mmol/L Chloride (98-107) mmol/L Carbon Dioxide (21.0-32.0) mmol/L Anion Gap (7-15) meq/L BUN (7-18) mg/dL Creatinine (0.51-1.17) mg/dL Est Cr Clr Drug Dosing Estimated GFR (MDRD) mL/min Glucose (70-99) mg/dL Calcium (8.5-10.1) mg/dL Magnesium (1.8-2.4) mg/dL Total Bilirubin (0.2-1.0) mg/dL AST (15-37) U/L ALT (12-78) U/L Alkaline Phosphatase (46-116) IU/L Ammonia (11-32) umol/L Troponin I High Sens (<=76) ng/L Total Protein (6.4-8.2) g/dL Albumin (3.4-5.0) g/dL Amylase 50 (25-115) U/L Lipase 91 (73-393) U/L Result Diagrams: 01/19/21 08:10 01/19/21 08:10 Maxi Results Last 24 hrs: Microbiology 01/17/21 05:36 Urine Culture - Final Urine, Catheterized Gram Negative Rods 01/17/21 06:55 Aerobic Blood Culture - Preliminary Blood - Venous - Lab Draw NO GROWTH AFTER 2 DAYS Anaerobic Blood Culture - Preliminary NO GROWTH AFTER 2 DAYS 01/17/21 05:39 Aerobic Blood Culture - Preliminary Blood - Venous NO GROWTH AFTER 2 DAYS Anaerobic Blood Culture - Preliminary NO GROWTH AFTER 2 DAYS Sepsis Event Note - Evaluation Sepsis Screening Result: No Definite Risk - Focused Exam Vital Signs: Vital Signs Temp Pulse Resp BP Pulse Ox 01/19/21 12:00 36.6 C 86 28 H 110/60 98 - Problem List & Annotations (1) Need for comfort care SNOMED Code(s): 433429749, 596153831 Code(s): EPO0628 - Status: Acute Priority: High Current Visit: Yes Annotation/Comment:: Consult Hospice Wednesday/patient's family currently wishes to focus on comfort care. (2) Acute on chronic respiratory failure with hypoxia and hypercapnia SNOMED Code(s): 61597811234098 Code(s): J96.21 - ACUTE AND CHRONIC RESPIRATORY FAILURE WITH HYPOXIA; J96.22 - ACUTE AND CHRONIC RESPIRATORY FAILURE WITH HYPERCAPNIA Status: Acute Pr iority: High Current Visit: Yes Annotation/Comment:: History of increasing frequency of episodes acute hypoxemia/respiratory distress. Often treated with steroids/antibiotics. Did respond to Bipap treatment along with Solu-medrol in ED. Initial doses of antibiotics also received in ED. No significant acute changes noted on chest film by Radiology. No fevers/normal WBC. Solu-medrol and antibiotics discontinued when patient's family decided on comfort care/Hospice consult. Improved today. O2 sats upper 90s on [place] O2 5-6 L. (3) Elevated troponin SNOMED Code(s): 288875786, 593844394, 735573962 Code(s): R77.8 - OTHER SPECIFIED ABNORMALITIES OF PLASMA PROTEINS Status: Acute Priority: Medium Current Visit: Yes Annotation/Comment:: Suspect elevated due to recent myocardial ischemic event. Troponin went down to 734 today. No further intervention at this time due to patient receiving comfort measures. Patient denies chest pain. (4) Confusion SNOMED Code(s): 697313787 Code(s): R41.0 - DISORIENTATION, UNSPECIFIED Status: Chronic Priority: Low Current Visit: Yes Annotation/Comment:: increasing episodes of confusion noted by both staff and family. (5) Hypoglycemic episode in patient with diabetes mellitus SNOMED Code(s): 268376452, 638560490 Code(s): E11.649 - TYPE 2 DIABETES MELLITUS WITH HYPOGLYCEMIA WITHOUT COMA Status: Acute Priority: Medium Current Visit: Yes Annotation/Comment:: Improved blood sugars noted. Accuchecks discontinued once family decided on comfort cares. (6) Transaminitis SNOMED Code(s): 200456753, 904631411 Code(s): R74.01 - ELEVATION OF LEVELS OF LIVER TRANSAMINASE LEVELS Status: Acute Priority: Medium Current Visit: Yes Annotation/Comment:: Acute elevation ALT/AST. Patient denies abdominal pain. Afebrile. No GI changes. (7) Morbid obesity SNOMED Code(s): 276450984 Code(s): E66.01 - MORBID (SEVERE) OBESITY DUE TO EXCESS CALORIES Status: Chronic Priority: Medium Current Visit: Yes Annotation/Comment:: Lifestyle changes/diet have been reviewed with patient during previous visits. Patient not interested in making changes to diet. (8) Anemia SNOMED Code(s): 885873863 Code(s): D64.9 - ANEMIA, UNSPECIFIED Status: Acute Priority: Medium Current Visit: Yes Qualifiers: Anemia type: other cause Other causes of anemia: other cause, not classified Qualified Code(s): D64.89 - Other specified anemias Annotation/Comment:: chronic anemia. Suspect secondary to chronic disease/chronic kidney disease. Is receiving iron supplementation PO. Currently being held due to comfort cares but consider restart if family decides against Hospice care. (9) CHF (congestive heart failure) SNOMED Code(s): 58358584 Code(s): I50.9 - HEART FAILURE, UNSPECIFIED Status: Chronic Priority: Medium Current Visit: Yes Qualifiers: Heart failure type: unspecified Heart failure chronicity: unspecified Qualified Code(s): I50.9 - Heart failure, unspecified Annotation/Comment:: CHF by chest x-ray with elevated BNP. No further intervention at this time due to comfort care measures. (10) COPD (chronic obstructive pulmonary disease) SNOMED Code(s): 12319531 Code(s): J44.9 - CHRONIC OBSTRUCTIVE PULMONARY DISEASE, UNSPECIFIED Status: Chronic Priority: High Current Visit: Yes Qualifiers: COPD type: COPD with acute exacerbation Qualified Code(s): J44.1 - Chronic obstructive pulmonary disease with (acute) exacerbation Annotation/Comment:: End stage lung disease. On chronic home O2. Continue supplemental O2 via [place]. (11) Mixed anxiety depressive disorder SNOMED Code(s): 645673634 Code(s): F41.8 - OTHER SPECIFIED ANXIETY DISORDERS Status: Chronic Priority: Medium Current Visit: No Annotation/Comment:: Stable by history (12) Osteoarthritis SNOMED Code(s): 147146255 Code(s): M19.90 - UNSPECIFIED OSTEOARTHRITIS, UNSPECIFIED SITE Status: Chronic Priority: Medium Current Visit: No Qualifiers: Osteoarthritis location: unspecified site Annotation/Comment:: Stable by history (13) Peptic reflux disease SNOMED Code(s): 322516535 Code(s): K21.9 - GASTRO-ESOPHAGEAL REFLUX DISEASE WITHOUT ESOPHAGITIS Status: Chronic Priority: Medium Current Visit: No Annotation/Comment:: Stable by history (14) Renal insufficiency SNOMED Code(s): 718075919, 287056754 Code(s): N28.9 - DISORDER OF KIDNEY AND URETER, UNSPECIFIED Status: Chronic Priority: Medium Current Visit: Yes Annotation/Comment:: Creatinine 2.23 in ED. (15) Weakness generalized SNOMED Code(s): 34981041 Code(s): R53.1 - WEAKNESS Status: Chronic Priority: Medium Current Visit: Yes Annotation/Comment:: Overall weakness and deconditioning due to obesity, age, and chronic illness. - Problem List Review Problem List Initiated/Reviewed/Updated: Yes - My Orders Last 24 Hours: My Active Orders 01/18/21 20:00 ARIPiprazole [Abilify] 5 mg PO BEDTIME Tamsulosin [Flomax] 0.4 mg PO BEDTIME 01/19/21 08:00 Pantoprazole [ProTONIX] 40 mg PO DAILY Sertraline [Zoloft] 200 mg PO DAILY predniSONE 10 mg PO DAILY 01/19/21 16:39 Oxygen Therapy Adult [Oxygen Therapy] [RC] ASDIRECTED 01/21/21 08:00 predniSONE 5 mg PO DAILY - Assessment Assessment:: as above. Patient continues to decline over recent months. Family currently electing to pursue comfort cares. Due to patient's confusion and somnolence yesterday regular meds held. He is more awake since ED visit and able to swallow some soft foods. Some of patient's regular medications were restarted yesterday. . PRN MS ordered. Supplemental O2 continued. Family dynamics appear to be an issue with patient's sons wanting more aggressive treatment and not necessarily wanting to keep with comfort care/hospice plan. of patient is interested in continuing current plan but is getting pressured by sons. Multiple conversations with /sons both during this visit and recent hospitalizations regarding patient having endstage lung disease and poor prognosis. Given pressure on patient's from sons, a call was made to [facility] to review patient with on-call Hospitalist, . Patient has been to [facility] for more specialized care multiple times recently. reviewed chart notes from multiple providers and noted that they too had multiple conve rsations with family concerning patient's end-stage disease and also recommended palliative care. It was felt by [facility] providers that no further options/interventions would be appropriate at this point, nor would they provide any real opportunity for improvement regarding current symptoms/disease states/recurrent respiratory difficulties. After conclusion of phone visit with , the recommendations that were given by patient's [facility] providers were shared with family. They determined at that time to continue with palliative care and Hospice evaluation tomorrow. - Plan Plan:: Continue comfort measures. Current plan is to possibly discharge patient back to group home tomorrow. Hospice consult planned for Wednesday. halfway will not be able to accept the patient on the weekend due to staffing. Patient will be staying over the 48 hour observation timeframe because of this. Family is interested in possibly keeping him here on Swing Bed/Hospice and can review that option with Case Management tomorrow morning.
--- NOTE | 2021-01-19 17:02 | PCM.SN.2 ---
- Free Text/Narrative Note: Small amount gram negative rods noted UC, lab suspects contamination. Stool was + for occult blood. No further action at this time as Hospice plans to see patient in AM and patient is currently comfort care only. Time Documentation
[2021-01-19] MEDS ORDERED: Morphine 2 MG/ML SYRINGE PRN (19:58)
[2021-01-19] MEDS ORDERED: Sodium Chloride 0.9% Inhalation Soln 3 ML Neb INH PRN (20:00)
[2021-01-19] MEDS ORDERED: Morphine 2 MG/ML SYRINGE ONE (20:05)
[2021-01-19] MEDS: Tamsulosin 0.4 MG Cap.ER PO SCH (20:07)
[2021-01-19] MEDS ORDERED: Sodium Chloride 0.9% Inhalation Soln 3 ML Neb ONE (20:07)
[2021-01-19] MEDS: ARIPiprazole 10 MG Tab PO SCH (20:07)
[2021-01-19] MEDS ORDERED: Haloperidol Lactate 5 MG/ML SDV IM ONE (20:35)
[2021-01-19] MEDS ORDERED: Haloperidol Lactate 5 MG/ML SDV ONE (20:43)
[2021-01-19] MEDS ORDERED: Haloperidol Lactate 2 MG/ML Oral Soln 15 ML Bottle ONE (21:00)
[2021-01-19] MEDS ORDERED: Haloperidol Lactate Oral Concetrate 2 MG/ML ML 120 ML Bottle PO PRN (21:07)
[2021-01-20] MEDS: Haloperidol Lactate Oral Concetrate 2 MG/ML ML 120 ML Bottle PO PRN ×2 (00:55→06:46)
[2021-01-20] MEDS: LORazepam Conc Solution 2 MG/ML 30 ML Bottle BUCCAL PRN ×2 (07:31→08:50)
[2021-01-20] MEDS: Atropine 1% Ophth Soln 5 ML BOTTLE SL PRN ×2 (07:33→09:52)
[2021-01-20] MEDS: Morphine Oral Concentrate 20 MG/ML 30 ML Bottle BUCCAL PRN ×2 (07:33→08:50)
[2021-01-20] MEDS: Albuterol/Ipratropium 3.0-0.5 MG/3 ML Neb Soln INH PRN (07:33)
[2021-01-20] MEDS ORDERED: Haloperidol Lactate Oral Concetrate 2 MG/ML ML 120 ML Bottle PO PRN (09:00)
[2021-01-20] MEDS ORDERED: Morphine Oral Concentrate 20 MG/ML 30 ML Bottle SL PRN ×2 (09:00→10:00)
[2021-01-20] MEDS ORDERED: LORazepam Conc Solution 2 MG/ML 30 ML Bottle BUCCAL PRN (09:00)
[2021-01-20] MEDS ORDERED: Morphine Oral Concentrate 20 MG/ML 30 ML Bottle SL ONE (09:06)
[2021-01-20] MEDS ORDERED: Haloperidol Lactate 2 MG/ML Oral Soln 15 ML Bottle PO ONE (09:07)
[2021-01-20] MEDS ORDERED: Hyoscyamine 0.125 MG Tab.SL SL SCH (12:00)
[2021-01-20] MEDS ORDERED: Haloperidol Lactate Oral Concetrate 2 MG/ML ML 120 ML Bottle PO SCH (12:00)
[2021-01-20] MEDS ORDERED: Albuterol/Ipratropium 3.0-0.5 MG/3 ML Neb Soln NEB SCH (12:00)
[2021-01-21] MEDS ORDERED: predniSONE 5 MG Tab PO SCH (08:00)
--- NOTE | 2021-02-06 09:31 | PCM.DCSUM1 ---
Discharge Summary - Hospital Course Free Text/Narrative:: Pt. is being transferred from observation status to swing bed with hospice. Please use this discharge summary as his admission H and P. Pt. has been admitted numerous times over the past month with respiratory failure due to aspiration pneumonia and COPD exacerbation. He also has a history of CHF and CKD. Pt. is a DNR/DNI. He was recently transferred to [place] for a short stay and then back to [facility]. Pt. became more hypoxic and dyspneic yesterday and again was transported back to this facility. Pt. has been minimally responsive with sonorous respirations since admission. Pt. had briefly changed his code status back to 1. Findings were discussed with family yesterday and they have decided to proceed with hospice. Diagnosis: Stroke: No - Discharge Data Discharge Date: 01/20/21 Discharge Disposition: DC/Tfer W/I Hosp To [place] [id number] Condition: Poor - Referral to Home Health Primary Care Physician: PCP Unknown - Discharge Diagnosis/Problem(s) (1) Acute and chronic respiratory failure SNOMED Code(s): 58222679 ICD Code: J96.20 - ACUTE AND CHR RESP FAILURE, UNSP W HYPOXIA OR HYPERCAPNIA Status: Acute Priority: High Problem Details: Chronic O2 dependent COPD. Acute worsening of respiratory status today with O2 sats decreasing as low as high 50s. Currently on 10L NRB mask with sats in 90s. Uncertain etiology. Differential includes PE/CHF/CO/infection (2) Acute on chronic respiratory failure with hypoxia and hypercapnia SNOMED Code(s): 69892331497789 ICD Code: J96.21 - ACUTE AND CHRONIC RESPIRATORY FAILURE WITH HYPOXIA; J96.22 - ACUTE AND CHRONIC RESPIRATORY FAILURE WITH HYPERCAPNIA Status: Acute Hilaria ority: High Problem Details: History of increasing frequency of episodes acute hypoxemia/respiratory distress. Often treated with steroids/antibiotics. Did respond to Bipap treatment along with Solu-medrol in ED. Initial doses of antibiotics also received in ED. No significant acute changes noted on chest film by Radiology. No fevers/normal WBC. Solu-medrol and antibiotics discontinued when patient's family decided on comfort care/Hospice consult. Improved today. O2 sats upper 90s on NC O2 5-6 L. (3) Acute renal failure superimposed on stage 3 chronic kidney disease SNOMED Code(s): 142521104 ICD Code: N17.9 - ACUTE KIDNEY FAILURE, UNSPECIFIED; N18.30 - CHRONIC KIDNEY DISEASE, STAGE 3 UNSPECIFIED Status: Acute Qualifiers: Qualifiers: unspecified Qualifiers: stage 3b (GFR 30-44) Qualifiers: [id number] Qualifiers: [id number] (4) Altered mental status SNOMED Code(s): 137448689 ICD Code: R41.82 - ALTERED MENTAL STATUS, UNSPECIFIED Status: Acute Qualifiers: Qualifiers: unspecified Qualifiers: [id number] Qualifiers: [id number] - Patient Summary/Data Consults: Consultations 01/20/21 11:13 Consult to Hospice [CONS] Routine - Patient Instructions Diet: Usual Diet as Tolerated Activity: Bedrest - Discharge Plan Home Medications: Home Meds Albuterol [Ventolin HFA] 1 puff INH Q4H 02/26/15 [History] Furosemide 20 mg PO DAILY PRN 02/26/15 [History] Pantoprazole [ProTONIX] 40 mg PO DAILY 02/26/15 [History] Sertraline [Zoloft] 200 mg PO DAILY 02/26/15 [History] ARIPiprazole [Abilify] 5 mg PO BEDTIME 04/16/18 [History] Tamsulosin [Flomax] 0.4 mg PO BEDTIME 04/16/18 [History] Albuterol/Ipratropium [DuoNeb 3.0-0.5 MG/3 ML] 3 ml INH Q4HR 07/29/18 [History] Magnesium Oxide 400 mg PO BID@1200,1800 07/29/18 [History] Acetylcysteine [Nac] 1 cap PO BID 03/28/19 [History] Ferrous Sulfate 1 tab PO Q2D 03/28/19 [History] Gabapentin [Neurontin] 300 mg PO BID 03/28/19 [History] Acetaminophen [Tylenol] 325 mg PO Q4HR PRN 07/24/19 [History] Ipratropium [Atrovent 0.03% Nasal [place]] 2 spray NASBOTH BID 07/24/19 [History] Ascorbate Calcium [Vitamin C] 500 mg PO Q2D 09/03/20 [History] Budesonide [Pulmicort] 0.5 mg INH BID 09/03/20 [History] Aspirin [Aspirin EC] 81 mg PO DAILY 01/17/21 [History] guaiFENesin [Mucinex] 600 mg PO Q12HR PRN 01/17/21 [History] predniSONE [Prednisone] 5 mg PO DAILY 01/17/21 [History] predniSONE [Prednisone] 10 mg PO DAILY 01/17/21 [History] Forms: ED Department Discharge Referrals: PCP,None [Primary Care Provider] - - Discharge Summary/Plan Comment DC Time >30 min.: Yes Total # of Minutes for Discharge Time: 75 Discharge Summary/Plan Comment: Pt. being transitioned from observation status to correction/hospice. Hospice will follow their protocol for pain control, agitation, nausea/vomiting and constipation. Discussed findings with family. They are in agreement with plan of care. - General Info Subjective Update: ROS unobtainable - Patient Data Med Orders - Current: Current Medications Acetaminophen (Acetaminophen 650 Mg Supp) 650 mg RECTAL Q4H PRN PRN Reason: fever/pain Albuterol/Ipratropium (Albuterol/Ipratropium 3.0-0.5 Mg/3 Ml Neb Soln) 3 ml INH Q4HR PRN PRN Reason: Shortness of Breath Albuterol/Ipratropium (Albuterol/Ipratropium 3.0-0.5 Mg/3 Ml Neb Soln) 3 ml NEB QID DARREL Atropine Sulfate (Atropine 1% Ophth Soln 5 Ml Bottle) 1 ml SL Q2H PRN PRN Reason: secretion excess Bisacodyl (Bisacodyl 10 Mg Supp) 10 mg RECTAL DAILY PRN PRN Reason: Constipation Bisacodyl (Bisacodyl 10 Mg Supp) 10 mg RECTAL Q3D DARREL Haloperidol Lactate (Haloperidol Lactate Oral Concetrate 2 Mg/Ml Ml 120 Ml Bottle) 5 mg PO Q6H DARREL Haloperidol Lactate (Haloperidol Lactate Oral Concetrate 2 Mg/Ml Ml 120 Ml Bottle) 5 mg PO Q4H PRN PRN Reason: Agitation Hyoscyamine (Hyoscyamine 0.125 Mg Tab.Sl) 0.125 mg SL Q6H DARREL Hyoscyamine (Hyoscyamine 0.125 Mg Tab.Sl) 0.125 mg SL Q4H PRN PRN Reason: Spasms Lorazepam (Lorazepam Conc Solution 2 Mg/Ml 30 Ml Bottle) 2 mg BUCCAL Q6H DARREL Lorazepam (Lorazepam Conc Solution 2 Mg/Ml 30 Ml Bottle) 2 mg BUCCAL Q4H PRN PRN Reason: Agitation Morphine Sulfate (Morphine Oral Concentrate 20 Mg/Ml 30 Ml Bottle) 10 mg SL Q1H PRN PRN Reason: Dyspepsia Morphine Sulfate (Morphine Oral Concentrate 20 Mg/Ml 30 Ml Bottle) 10 mg BUCCAL Q4H DARREL Discontinued Medications Bisacodyl (Bisacodyl 10 Mg Supp) 10 mg RECTAL Q3D DARREL Haloperidol Lactate (Haloperidol Lactate Oral Concetrate 2 Mg/Ml Ml 120 Ml Bot tle) 10 mg PO Q4H PRN PRN Reason: Agitation Lorazepam (Lorazepam Conc Solution 2 Mg/Ml 30 Ml Bottle) 2 mg PO Q4H PRN PRN Reason: Agitation - Exam Quality Assessment: Reports: Supplemental Oxygen General: Reports: Lethargic, Obtunded Neck: Reports: Supple Lungs: Reports: Decreased Breath Sounds, Crackles, Rales, Wheezing Cardiovascular: Reports: Regular Rate, Regular Rhythm GI/Abdominal Exam: Soft, Non-Tender, No Mass, Distended, Other (umbilical hernia noted) (Male) Exam: No Hernia Rectal (Males) Exam: Deferred Extremities: Pedal Edema Skin: Reports: Warm, Dry, Intact, Other (edema, 3rd spacing)
--- NOTE | 2021-02-20 10:54 | PCM.EKG ---
#1 Interpretation EKG Date: 01/17/21 Time: 07:59 Rhythm: NSR (With 1st degree AV block) Rate (Beats/Min): 96 [place]: Normal P-Wave: Present QRS: RBBB ST-T: Depressed (Inferior lateral T wave inversion) QT: Normal Comparison: Change From Previous EKG
== END 2021-01-20 11:27 | disposition swing bed (61) ==
LOC: LL.ED 05:27 → LL.MS 09:26
PROVIDERS: ADMIT Emergency Medicine; ATTEND Emergency Medicine
DX: J96.21 Acute and chronic respiratory failure with hypoxia (principal); J96.22 Acute and chronic respiratory failure with hypercapnia; R41.82 Altered mental status, unspecified; E66.01 Morbid (severe) obesity due to excess calories; I50.9 Heart failure, unspecified; J44.9 Chronic obstructive pulmonary disease, unspecified; K70.30 Alcoholic cirrhosis of liver without ascites; I25.10 Atherosclerotic heart disease of native coronary artery without angina pectoris; G47.30 Sleep apnea, unspecified; I13.0 Hypertensive heart and chronic kidney disease with heart failure and stage 1 through stage 4 chronic kidney disease, or unspecified chronic kidney disease; N18.9 Chronic kidney disease, unspecified; J44.1 Chronic obstructive pulmonary disease with (acute) exacerbation; N40.0 Benign prostatic hyperplasia without lower urinary tract symptoms; F41.9 Anxiety disorder, unspecified; N17.9 Acute kidney failure, unspecified; F32.9 Major depressive disorder, single episode, unspecified; E11.22 Type 2 diabetes mellitus with diabetic chronic kidney disease; E11.40 Type 2 diabetes mellitus with diabetic neuropathy, unspecified; Z98.890 Other specified postprocedural states; Z79.899 Other long term (current) drug therapy; Z79.82 Long term (current) use of aspirin; Z20.822 Contact with and (suspected) exposure to COVID-19
CPT/HCPCS: 36415; 70450; 71045; 80053; 81001; 82140; 82150; 82272; 82803; 82947; 83605; 83690; 83735; 83880; 84145; 84484; 85025; 85610; 85730; 86140; 87040; 87086; 93005; 93010; 94640; 94660; 96365; 96366; 96372; 96375; 96376; 99217; 99220; 99225; 99285-25; A9270-GY; G0378; J0696; J1630; J2270; J2930; J3370; J7120; J7620-GY; U0002

== ENCOUNTER 2021-01-20 10:42 | Inpatient (IN) | payer MEDICARE, OTHER ==
[2021-01-20] MEDS ORDERED: Albuterol/Ipratropium 3.0-0.5 MG/3 ML Neb Soln INH PRN (11:13)
[2021-01-20] MEDS ORDERED: Haloperidol Lactate Oral Concetrate 2 MG/ML ML 120 ML Bottle PO PRN ×2 (11:13→12:00)
[2021-01-20] MEDS ORDERED: Sodium Chloride 0.9% Inhalation Soln 3 ML Neb INH PRN (11:13)
[2021-01-20] MEDS ORDERED: Bisacodyl 10 MG Supp RECTAL PRN (11:23)
[2021-01-20] MEDS ORDERED: LORazepam Conc Solution 2 MG/ML 30 ML Bottle PO PRN (12:00)
[2021-01-20] MEDS ORDERED: Acetaminophen 650 MG Supp RECTAL PRN (12:00)
[2021-01-20] MEDS ORDERED: Hyoscyamine 0.125 MG Tab.SL SL PRN (12:00)
[2021-01-20] MEDS ORDERED: Bisacodyl 10 MG Supp RECTAL SCH (12:00)
--- NOTE | 2021-01-20 12:25 | PCM.DCSUM1 ---
Discharge Summary - Hospital Course Free Text/Narrative:: Pt. is being transferred from observation status to swing bed with hospice. Please use this discharge summary as his admission H and P. Pt. has been admitted numerous times over the past month with respiratory failure due to aspiration pneumonia and COPD exacerbation. He also has a history of CHF and CKD. Pt. is a DNR/DNI. He was recently transferred to [place] for a short stay and then back to [facility]. Pt. became more hypoxic and dyspneic yesterday and again was transported back to this facility. Pt. has been minimally responsive with sonorous respirations since admission. Pt. had briefly changed his code status back to 1. Findings were discussed with family yesterday and they have decided to proceed with hospice. Diagnosis: Stroke: No - Discharge Data Discharge Date: 01/20/21 Discharge Disposition: DC/Tfer W/I Hosp To [place] [id number] Condition: Poor - Referral to Home Health Primary Care Physician: PCP Unknown - Discharge Diagnosis/Problem(s) (1) Acute and chronic respiratory failure SNOMED Code(s): 43837137 ICD Code: J96.20 - ACUTE AND CHR RESP FAILURE, UNSP W HYPOXIA OR HYPERCAPNIA Status: Acute Priority: High Current Visit: No Problem Details: Chronic O2 dependent COPD. Acute worsening of respiratory status today with O2 sats decreasing as low as high 50s. Currently on 10L NRB mask with sats in 90s. Uncertain etiology. Differential includes PE/CHF/LA/infection Qualifiers: (2) Acute on chronic respiratory failure with hypoxia and hypercapnia SNOMED Code(s): 81706508752151 ICD Code: J96.21 - ACUTE AND CHRONIC RESPIRATORY FAILURE WITH HYPOXIA; J96.22 - ACUTE AND CHRONIC RESPIRATORY FAILURE WITH HYPERCAPNIA Status: Acute Priority: High Current Visit: No Problem Details: History of increasing frequency of episodes acute hypoxemia/respiratory distress. Often treated with steroids/antibiotics. Did respond to Bipap treatment along with Solu-medrol in ED. Initial doses of antibiotics also received in ED. No significant acute changes noted on chest film by Radiology. No fevers/normal WBC. Solu-medrol and antibiotics discontinued when patient's family decided on comfort care/Hospice consult. Improved today. O2 sats upper 90s on NC O2 5-6 L. (3) Acute renal failure superimposed on stage 3 chronic kidney disease SNOMED Code(s): 622818265 ICD Code: N17.9 - ACUTE KIDNEY FAILURE, UNSPECIFIED; N18.30 - CHRONIC KIDNEY DISEASE, STAGE 3 UNSPECIFIED Status: Acute Current Visit: No Qualifiers: Acute renal failure type: unspecified Chronic kidney disease stage 3 subtype: stage 3b (GFR 30-44) Qualified Code(s): N17.9 - Acute kidney failure, unspecified; N18.32 - Chronic kidney disease, stage 3b (4) Altered mental status SNOMED Code(s): 159697343 ICD Code: R41.82 - ALTERED MENTAL STATUS, UNSPECIFIED Status: Acute Current Visit: No Qualifiers: Altered mental status type: unspecified Qualified Code(s): R41.82 - Altered mental status, unspecified - Patient Summary/Data Consults: Consultations 01/20/21 11:13 Consult to Hospice [CONS] Routine - Patient Instructions Diet: Usual Diet as Tolerated Activity: Bedrest - Discharge Plan Home Medications: Home Meds Albuterol [Ventolin HFA] 1 puff INH Q4H 02/26/15 [History] Furosemide 20 mg PO DAILY PRN 02/26/15 [History] Pantoprazole [ProTONIX] 40 mg PO DAILY 02/26/15 [History] Sertraline [Zoloft] 200 mg PO DAILY 02/26/15 [History] ARIPiprazole [Abilify] 5 mg PO BEDTIME 04/16/18 [History] Tamsulosin [Flomax] 0.4 mg PO BEDTIME 04/16/18 [History] Albuterol/Ipratropium [DuoNeb 3.0-0.5 MG/3 ML] 3 ml INH Q4HR 07/29/18 [History] Magnesium Oxide 400 mg PO BID@1200,1800 07/29/18 [History] Acetylcysteine [Nac] 1 cap PO BID 03/28/19 [History] Ferrous Sulfate 1 tab PO Q2D 03/28/19 [History] Gabapentin [Neurontin] 300 mg PO BID 03/28/19 [History] Acetaminophen [Tylenol] 325 mg PO Q4HR PRN 07/24/19 [History] Ipratropium [Atrovent 0.03% Nasal [place]] 2 spray NASBOTH BID 07/24/19 [History] Ascorbate Calcium [Vitamin C] 500 mg PO Q2D 09/03/20 [History] Budesonide [Pulmicort] 0.5 mg INH BID 09/03/20 [History] Aspirin [Aspirin EC] 81 mg PO DAILY 01/17/21 [History] guaiFENesin [Mucinex] 600 mg PO Q12HR PRN 01/17/21 [History] predniSONE [Prednisone] 5 mg PO DAILY 01/17/21 [History] predniSONE [Prednisone] 10 mg PO DAILY 01/17/21 [History] - Discharge Summary/Plan Comment DC Time >30 min.: Yes Total # of Minutes for Discharge Time: 75 Discharge Summary/Plan Comment: Pt. being transitioned from observation status to intermediate/hospice. Hospice will follow their protocol for pain control, agitation, nausea/vomiting and constipation. Discussed findings with family. They are in agreement with plan of care. - General Info Subjective Update: ROS unobtainable - Patient Data Med Orders - Current: Current Medications Acetaminophen (Acetaminophen 650 Mg Supp) 650 mg RECTAL Q4H PRN PRN Reason: fever/pain Albuterol/Ipratropium (Albuterol/Ipratropium 3.0-0.5 Mg/3 Ml Neb Soln) 3 ml INH Q4HR PRN PRN Reason: Shortness of Breath Albuterol/Ipratropium (Albuterol/Ipratropium 3.0-0.5 Mg/3 Ml Neb Soln) 3 ml NEB QID DARREL Atropine Sulfate (Atropine 1% Ophth Soln 5 Ml Bottle) 1 ml SL Q2H PRN PRN Reason: secretion excess Bisacodyl (Bisacodyl 10 Mg Supp) 10 mg RECTAL DAILY PRN PRN Reason: Constipation Bisacodyl (Bisacodyl 10 Mg Supp) 10 mg RECTAL Q3D DARREL Haloperidol Lactate (Haloperidol Lactate Oral Concetrate 2 Mg/Ml Ml 120 Ml Bottle) 5 mg PO Q6H DARREL Haloperidol Lactate (Haloperidol Lactate Oral Concetrate 2 Mg/Ml Ml 120 Ml Bottle) 5 mg PO Q4H PRN PRN Reason: Agitation Hyoscyamine (Hyoscyamine 0.125 Mg Tab.Sl) 0.125 mg SL Q6H DARREL Hyoscyamine (Hyoscyamine 0.125 Mg Tab.Sl) 0.125 mg SL Q4H PRN PRN Reason: Spasms Lorazepam (Lorazepam Conc Solution 2 Mg/Ml 30 Ml Bottle) 2 mg BUCCAL Q6H DARREL Lorazepam (Lorazepam Conc Solution 2 Mg/Ml 30 Ml Bottle) 2 mg BUCCAL Q4H PRN PRN Reason: Agitation Morphine Sulfate (Morphine Oral Concentrate 20 Mg/Ml 30 Ml Bottle) 10 mg SL Q1H PRN PRN Reason: Dyspepsia Morphine Sulfate (Morphine Oral Concentrate 20 Mg/Ml 30 Ml Bottle) 10 mg BUCCAL Q4H DARREL Discontinued Medications Bisacodyl (Bisacodyl 10 Mg Supp) 10 mg RECTAL Q3D DARREL Haloperidol Lactate (Haloperidol Lactate Oral Concetrate 2 Mg/Ml Ml 120 Ml Bottle) 10 mg PO Q4H PRN PRN Reason: Agitation Lorazepam (Lorazepam Conc Solution 2 Mg/Ml 30 Ml Bottle) 2 mg PO Q4H PRN PRN Reason: Agitation - Exam Quality Assessment: Reports: Supplemental Oxygen General: Reports: Lethargic, Obtunded Neck: Reports: Supple Lungs: Reports: Decreased Breath Sounds, Crackles, Rales, Wheezing Cardiovascular: Reports: Regular Rate, Regular Rhythm GI/Abdominal Exam: Soft, Non-Tender, No Mass, Distended, Other (umbilical hernia noted) (Male) Exam: No Hernia Rectal (Males) Exam: Deferred Extremities: Pedal Edema Skin: Reports: Warm, Dry, Intact, Other (edema, 3rd spacing)
[2021-01-20] MEDS: Atropine 1% Ophth Soln 5 ML BOTTLE SL PRN (12:44)
[2021-01-20] MEDS: Morphine Oral Concentrate 20 MG/ML 30 ML Bottle SL PRN (12:44)
[2021-01-20] MEDS: LORazepam Conc Solution 2 MG/ML 30 ML Bottle BUCCAL PRN (12:46)
[2021-01-20] MEDS: Albuterol/Ipratropium 3.0-0.5 MG/3 ML Neb Soln NEB SCH ×3 (13:19→21:11)
[2021-01-20] MEDS: LORazepam Conc Solution 2 MG/ML 30 ML Bottle BUCCAL SCH ×2 (15:01→22:28)
[2021-01-20] MEDS: Morphine Oral Concentrate 20 MG/ML 30 ML Bottle BUCCAL SCH ×2 (15:02→19:10)
[2021-01-20] MEDS: Haloperidol Lactate Oral Concetrate 2 MG/ML ML 120 ML Bottle PO SCH ×3 (15:12→22:29)
[2021-01-20] MEDS: Hyoscyamine 0.125 MG Tab.SL SL SCH ×2 (15:12→21:10)
[2021-01-21] MEDS: Morphine Oral Concentrate 20 MG/ML 30 ML Bottle BUCCAL SCH ×7 (01:32→22:34)
[2021-01-21] MEDS: Haloperidol Lactate Oral Concetrate 2 MG/ML ML 120 ML Bottle PO SCH ×4 (03:05→20:03)
[2021-01-21] MEDS: LORazepam Conc Solution 2 MG/ML 30 ML Bottle BUCCAL SCH ×4 (03:05→20:05)
[2021-01-21] MEDS: Hyoscyamine 0.125 MG Tab.SL SL SCH ×4 (03:06→20:07)
[2021-01-21] MEDS ORDERED: Bisacodyl 10 MG Supp RECTAL SCH (08:00)
[2021-01-21] MEDS: Albuterol/Ipratropium 3.0-0.5 MG/3 ML Neb Soln NEB SCH ×4 (09:20→20:08)
[2021-01-21] MEDS: LORazepam Conc Solution 2 MG/ML 30 ML Bottle BUCCAL PRN (11:29)
[2021-01-21] MEDS: Atropine 1% Ophth Soln 5 ML BOTTLE SL PRN (22:35)
[2021-01-22] MEDS: Morphine Oral Concentrate 20 MG/ML 30 ML Bottle SL PRN ×4 (00:40→05:04)
[2021-01-22] MEDS: Morphine Oral Concentrate 20 MG/ML 30 ML Bottle BUCCAL SCH ×2 (01:49→06:04)
[2021-01-22] MEDS: LORazepam Conc Solution 2 MG/ML 30 ML Bottle BUCCAL SCH (01:49)
[2021-01-22] MEDS: Atropine 1% Ophth Soln 5 ML BOTTLE SL PRN ×2 (01:49→05:04)
[2021-01-22] MEDS: Haloperidol Lactate Oral Concetrate 2 MG/ML ML 120 ML Bottle PO SCH (01:51)
[2021-01-22] MEDS: Hyoscyamine 0.125 MG Tab.SL SL SCH (01:52)
== END 2021-01-22 08:28 | disposition expired | DRG 951 ==
LOC: LL.MS 11:33
PROVIDERS: ADMIT Physician Assistant; ATTEND Physician Assistant
DX: Z51.5 Encounter for palliative care (principal); J96.21 Acute and chronic respiratory failure with hypoxia; J96.22 Acute and chronic respiratory failure with hypercapnia; N17.9 Acute kidney failure, unspecified; R41.82 Altered mental status, unspecified; K59.00 Constipation, unspecified; I50.9 Heart failure, unspecified; Z66 Do not resuscitate; N18.32 Chronic kidney disease, stage 3b; Z79.51 Long term (current) use of inhaled steroids; Z79.899 Other long term (current) drug therapy; Z79.82 Long term (current) use of aspirin
CPT/HCPCS: 94640; A9270-GY; J7620-GY